=== PATIENT | male | born 1970 | race Caucasian/White ===

== ENCOUNTER 2017-02-18 09:23 | Observation (INO) ==
--- NOTE | 2017-02-18 12:04 | General Surg History&Physical ---
<Milena Morales - Last Filed: 02/18/17 12:30> Date of Encounter: 02/18/17 Time of Encounter: 11:30 Assessment and Plan (1) Pancreatitis Current Visit: Yes Status: Chronic The assessment and plan as outlined above was discussed with the patient and/or family members who expressed understanding and agreement. All questions were answered. NPO IV fluids- 200ml/hour CT abdomen/pelvis with PO/IV contrast Labs- WILMER, IGG4, Ionized calcium, CBC, BMP, Hepatic panel (lipid panel complete 02/04/17) Supportive care/pain control Continue idiopathic work-up for ongoing pancreatitis Qualifiers: Chronicity: chronic Pancreatitis type: idiopathic Qualified Code(s): K86.1 - Other chronic pancreatitis (2) Diarrhea Current Visit: Yes Status: Chronic The assessment and plan as outlined above was discussed with the patient and/or family members who expressed understanding and agreement. All questions were answered. Stool studies complete 02/17/17 reviewed and negative for bacterial pathogens, c- diff Continue IV fluids Qualifiers: Diarrhea type: unspecified type Qualified Code(s): R19.7 - Diarrhea, unspecified (3) Tobacco abuse Current Visit: Yes Status: Chronic The assessment and plan as outlined above was discussed with the patient and/or family members who expressed understanding and agreement. All questions were answered. Nicotine patch Smoking cessation education (4) COPD (chronic obstructive pulmonary disease) Current Visit: Yes Status: Chronic The assessment and plan as outlined above was discussed with the patient and/or family members who expressed understanding and agreement. All questions were answered. IS every 1 hour while awake Duonebs prn for SOB/wheezing Qualifiers: COPD type: emphysema Emphysema type: unspecified Qualified Code(s): J43.9 - Emphysema, unspecified (5) Marijuana abuse Current Visit: Yes Status: Chronic The assessment and plan as outlined above was discussed with the patient and/or family members who expressed understanding and agreement. All questions were answered. (6) GERD (gastroesophageal reflux disease) Current Visit: Yes Status: Chronic The assessment and plan as outlined above was discussed with the patient and/or family members who expressed understanding and agreement. All questions were answered. PPI therapy daily Qualifiers: Esophagitis presence: esophagitis presence not specified Qualified Code(s) : K21.9 - Gastro-esophageal reflux disease without esophagitis (7) DVT prophylaxis Current Visit: Yes Status: Acute The assessment and plan as outlined above was discussed with the patient and/or family members who expressed understanding and agreement. All questions were answered. Heparin 5,000 units SQ twice daily for DVT prophylaxis Ambulate hallways History of Present Illness Chief complaint: Epigastric abdominal pain with associated nausea HPI: Mr. Hanks is a 46 year old male who was seen and evaluated as an outpatient with Dr. Bernstein. He has complaints of diffuse abdominal pain which has been constant for the past 6 weeks. He describes the pain as a constant dull pressure which is aggrevated with trying to eat or drink. All types of foods aggrevate his symptoms. He admits to nausea and states that he has vomiting 1 time and that was yesterday. Denies any hematemesis of coffee ground emesis. He states that he does have an appetite but he is unable to eat because eating causes his abdominal pain. He admits to a 30 lb. weight loss over the past 6 weeks. He admits to diarrhea for the past 6 weeks. He states that he is having multiple loose stools per day (unable to quantify how many times). Denies any melena or hematochezia. Admits to occasional shortness of breath. Denies any chest pains. Denies any difficulty with urination, urine is dark yellow. He did have a lipase complete which was elevated in the 400's. He was asked to come in for direct admission. He states that he has had his gallbaldder removed. He drinks very rarely (1-2 beers a few times a year). He does use marijuana routinely but denies any other recreational drug use. His triglyceride panel complete 10 days ago was within normal limits. His routine medications include oxycodone which was initiated a few weeks ago, flonase and nexium. Past Med Surg Social Fam HX - Past Medical History Source: patient, old records reviewed Medical history: COPD, GERD, kidney stones, migraine, other Psychiatric history: depression - Past Surgical History Surgical History: appendectomy, cholecystectomy, other (left wrist, right thumb) - Social History Smoking Status: Current every day smoker Smokeless Tobacco Status: No Alcohol use: rarely Drug use: marijuana Current living situation: Home - Independent Activity Level: Independent ambulation Recent Out of Country Travel Within the Last 8 Weeks: No Exposure or Possible Exposure to Illness During Travel: No - Family History Mother Living Status: Cause of : emphysema/COPD Hx Family Respiratory Disorders: Yes (asthma) Father Living Status: Hx Family Endocrine Disorder: Yes (Diabetes Mellitus) Medications and Allergies Esomeprazole Magnesium [Nexium] 40 mg PO DAILY 02/17/17 [History] OxyCODONE/APAP 10/325 [Percocet 10/325 MG] 1 each PO Q4H PRN 02/17/17 [History] Fluticasone Propionate Nasal [Flonase] 2 spray NS DAILY 02/18/17 [History] Allergies codeine Allergy (Verified 02/18/17 11:41) Swelling of Lip/Tongue/Throat ALSO STATES HIVES meperidine [From Demerol] Allergy (Verified 02/18/17 11:41) Swelling of Lip/Tongue/Throat ALSO STATES HIVES morphine Allergy (Verified 02/18/17 11:41) Swelling of Lip/Tongue/Throat ALSO STATES HIVES Penicillins [PCN] Allergy (Verified 02/18/17 11:41) Swelling of Lip/Tongue/Throat ALSO STATES HIVES ketorolac [From Toradol] Adverse Reaction (Verified 02/18/17 11:41) Swelling of Lip/Tongue/Throat ALSO STATES HIVES Review of Systems All systems PM: reviewed and no additional remarkable complaints except as stated (in the HPI) All systems PM: A 10-system review of systems was performed and is negative for pertinent findings except as documented above in the HPI. General Surgery Exam - General physical appearance well developed, well nourished, no distress, moderate pain - Eyes normal ocular movement - ENT normal mucosa, atraumatic, normocephalic - Neck trachea midline - Respiratory normal respiratory effort, clear to auscultation - Cardiovascular Cardiovascular exam: Present: RRR - Abdomen Abdomen general surgery: Present: bowel sounds present, soft, tender Abdominal Tenderness: Present: diffusely - Integumentary Integumentary general surgery: Present: warm and dry - Neurologic Present: CN 2-12 grossly intact - Musculoskeletal Present: normal gait, normal posture - Psychiatric Psychiatric general surgery: Present: appropriate, oriented to person, oriented to place, oriented to time, speech is normal, memory intact Results - Labs All other labs normal. - Attending Attestation I examined this patient and my medical decision-making was reviewed with the INTERIOR SPECIALIST/PA/Advanced Practice Nurse/Resident Physician. I agree with the documented findings, disposition and treatment plan as described except to the extent set forth below. <Liv Bernstein - Last Filed: 02/18/17 13:27> Date of Encounter: 02/18/17 Assessment and Plan (1) DVT prophylaxis Current Visit: Yes Status: Acute The assessment and plan as outlined above was discussed with the patient and/or family members who expressed understanding and agreement. All questions were answered. (2) COPD (chronic obstructive pulmonary disease) Current Visit: Yes Status: Chronic The assessment and plan as outlined above was discussed with the patient and/or family members who expressed understanding and agreement. All questions were answered. Qualifiers: COPD type: emphysema Emphysema type: unspecified Qualified Code(s): J43.9 - Emphysema, unspecified (3) Diarrhea Current Visit: Yes Status: Chronic The assessment and plan as outlined above was discussed with the patient and/or family members who expressed understanding and agreement. All questions were answered. Qualifiers: Diarrhea type: unspecified type Qualified Code(s): R19.7 - Diarrhea, unspecified (4) GERD (gastroesophageal reflux disease) Current Visit: Yes Status: Chronic The assessment and plan as outlined above was discussed with the patient and/or family members who expressed understanding and agreement. All questions were answered. Qualifiers: Esophagitis presence: esophagitis presence not specified Qualified Code(s) : K21.9 - Gastro-esophageal reflux disease without esophagitis (5) Pancreatitis Current Visit: Yes Status: Chronic The assessment and plan as outlined above was discussed with the patient and/or family members who expressed understanding and agreement. All questions were answered. patient with recent pancreatitis and abdominal pain for the last month He has previously had a cholecystectomy and previous CT not concerning for primary or secondary CBD stone, lfts wnl He doesnt really take any home medication and rarely drinks EtOH. Concern for idiopathic or autoimmune pancreatitis. Discussed with GI and they recommended labs for work up, they can see him as outpatient. Qualifiers: Chronicity: chronic Pancreatitis type: idiopathic Qualified Code(s): K86.1 - Other chronic pancreatitis History of Present Illness HPI: Mr. Hanks is a 46 year old male Review of Systems All systems PM: A 10-system review of systems was performed and is negative for pertinent findings except as documented above in the HPI. General Surgery Exam Initial Vital Signs Temp Pulse Resp BP Pulse Ox 97.8 F 74 16 121/80 94 06/23/17 11:46 02/18/17 11:46 02/18/17 11:46 02/18/17 11:46 02/18/17 11:46 - General physical appearance well nourished, no distress, moderate pain - Eyes PERRL, normal ocular movement - ENT normal mucosa, atraumatic, normocephalic - Neck trachea midline - Abdomen Abdomen general surgery: Present: bowel sounds present, soft, tender Abdominal Tenderness: Present: diffusely (mildly) - Integumentary Integumentary general surgery: Present: warm and dry, no abnormal pigmentation. Absent: diaphoresis - Neurologic Present: CN 2-12 grossly intact - Musculoskeletal Present: normal gait, normal posture - Psychiatric Psychiatric general surgery: Present: A&Ox3, oriented to time, speech is normal Results - Labs 02/18/17 13:07 All other labs normal. Short CBC 02/18/17 Range/Units 13:07 WBC 9.9 (4.3-11.1) K/mcL Hgb 16.2 (12.9-16.9) g/dL Hct 47.6 (37.5-50.1) % Plt Count 207 (140-400) K/mcL Neutrophils # 5.0 (1.6-8.9) K/mcL - Attending Attestation I examined this patient and my medical decision-making was reviewed with the INTERIOR SPECIALIST/PA/Advanced Practice Nurse/Resident Physician. I agree with the documented findings, disposition and treatment plan as described except to the extent set forth below.
[2017-02-18] MEDS ORDERED: Naloxone 0.4 MG/ML INJ IVP PRN (12:14)
[2017-02-18] MEDS ORDERED: Acetaminophen 325 MG TABLET PO PRN (12:26)
[2017-02-18] MEDS ORDERED: Ipratropium/Albuterol Neb 3 ML IH PRN (12:57)
[2017-02-18 13:22] LABS: Basophils # 0.1 K/mcL (0.0-0.2); Basophils % 0.6 %; Eosinophils # 0.1 K/mcL (0.0-0.6); Eosinophils % 1.4 %; Hematocrit 47.6 % (37.5-50.1); Hemoglobin 16.2 g/dL (12.9-16.9); Immature Granulocytes % 0.2 % (0-4); Lymphocytes # 3.7 K/mcL (0.6-4.6); Mean Corpuscular Hemoglobin 30.6 pg (28.0-33.3); Mean Corpuscular Volume 89.8 fL (83.0-100.0); Mean Platelet Volume 10.3 fL (9.4-12.4); Monocytes # 1.1 K/mcL (0.0-1.3); Platelet Count 207 K/mcL (140-400); Segmented Neutrophils % 49.8 %
[2017-02-18 14:17] LABS: Alanine Aminotransferase 24 Units/L (0-55); Albumin 3.7 g/dL (3.5-5.0); Albumin/Globulin Ratio 1.2 (1.1-2.2); Alkaline Phosphatase 108 Units/L (38-126); Amylase 26 Units/L (25-125); Aspartate Amino Transferase 22 Units/L (5-34); BUN/Creatinine Ratio 12 (6-26); Bilirubin,Direct 0.3 mg/dL (0.0-0.5); Bilirubin,Indirect 0.7 mg/dL (0.0-1.2); Blood Urea Nitrogen 12 mg/dL (8-26); Carbon Dioxide 27 mEq/L (19-29); Chloride 105 mEq/L (98-109); Globulin 3.2 g/dL (2.4-3.5); Glucose 65 mg/dL (70-99); Lipase 38 Units/L (8-78); Osmolality,Calculated 282 (280-300); Sodium 137 mEq/L (136-145); Total Protein 6.9 g/dL (6.0-8.3); eGFR For African Americans > 60 (> 60); eGFR For Non-African Americans > 60 (> 60)
[2017-02-18] MEDS: *HR* HYDROmorphone (PF) 1 MG/ML SYRINGE IVP PRN ×5 (14:51→23:34)
[2017-02-18] MEDS: Ondansetron 4 MG/2 ML VIAL IVP PRN ×2 (14:51→19:40)
[2017-02-18] MEDS: Nicotine 14 MG PATCH.TD24 TD SCH (14:59)
[2017-02-18] MEDS: *HR* Heparin 5,000 UNIT/ML VIAL SQ SCH (17:23)
[2017-02-18] MEDS: *HR* Promethazine 25 MG/ML VIAL IVP PRN (22:22)
[2017-02-19] MEDS: *HR* HYDROmorphone (PF) 1 MG/ML SYRINGE IVP PRN ×10 (02:35→23:33)
[2017-02-19] MEDS: *HR* Heparin 5,000 UNIT/ML VIAL SQ SCH ×2 (06:57→18:29)
[2017-02-19] MEDS: *HR* Promethazine 25 MG/ML VIAL IVP PRN ×3 (07:00→21:19)
[2017-02-19] MEDS: Nicotine 14 MG PATCH.TD24 TD SCH (09:24)
[2017-02-19] MEDS: Ondansetron 4 MG/2 ML VIAL IVP PRN ×2 (09:31→19:25)
[2017-02-19] MEDS ORDERED: Polyethylene Glycol 3350 255 GM POWDER PO ONE (10:29)
--- NOTE | 2017-02-19 10:34 | General Surgery Progress Note ---
Date of Encounter: 02/19/17 Time of Encounter: 10:30 - Assessment and Plan (1) DVT prophylaxis Current Visit: Yes Status: Acute (2) COPD (chronic obstructive pulmonary disease) Current Visit: Yes Status: Chronic IS, pulmonary toilet, prn inhaler Qualifiers: COPD type: emphysema Emphysema type: unspecified Qualified Code(s): J43.9 - Emphysema, unspecified (3) Diarrhea Current Visit: Yes Status: Chronic will plan colonoscopy with iv medication, risks and benefits discussed and he wishes to proceed Qualifiers: Diarrhea type: unspecified type Qualified Code(s): R19.7 - Diarrhea, unspecified (4) GERD (gastroesophageal reflux disease) Current Visit: Yes Status: Chronic protonix iv bid Qualifiers: Esophagitis presence: esophagitis presence not specified Qualified Code(s) : K21.9 - Gastro-esophageal reflux disease without esophagitis (5) Pancreatitis Current Visit: Yes Status: Chronic labs are normal yesterday Qualifiers: Chronicity: chronic Pancreatitis type: idiopathic Qualified Code(s): K86.1 - Other chronic pancreatitis (6) Abdominal pain Current Visit: Yes Status: Acute patient with continued severe abdominal pain that is unrelenting and increases with eating will plan EGD/colonoscopy with iv medication, risks and benefits discussed and he wishes to proceed start clears, npo at midnight bowel prep today decrease ivf hydration check lipase Qualifiers: Abdominal location: generalized Qualified Code(s): R10.84 - Generalized abdominal pain Subjective Patient reports: no new complaints, still having pain, voiding w/o difficulty, flatus, diarrhea Narrative: still having diffused severe abdominal pain and diarrhea Objective Vital Signs - Last 8 Hours Temp Pulse Resp BP Pulse Ox 02/19/17 06:39 97.5 F L 66 20 122/75 95 02/19/17 04:53 97.6 F 67 16 115/78 95 Intake and Output 02/18/17 02/19/17 02/19/17 23:59 07:59 15:59 Intake Total 1000 / 1000 1999 Output Total 1025 / 1025 1500 / 1500 550 / 550 Balance -25 / -25 500 / 500 -550 / -550 Intake: IV Fluids 1000 / 1000 1999 / 1999 0.45% Sodium Chloride 1000 / 1000 1999 1000 Ml 1000 Ml 1,000 ML @ 200 mls/hr IVC .Q5H ANDREW Rx#:[id number] Oral 0 / 0 0 / 0 Output: Urine 1025 / 1025 1500 / 1500 550 / 550 Other: Meal NPO Weight 101.968 kg Blood Glucose* 93 82 Patient Weight 02/19/17 23:59 Weight 101.968 kg - General physical appearance well developed, well nourished, moderate pain - Eyes PERRL, normal ocular movement - ENT normal mucosa, normocephalic - Neck Neck exam: trachea midline - Respiratory normal expansion, clear to auscultation - Cardiovascular Cardiovascular exam: Present: RRR - Abdomen Abdomen: Present: bowel sounds present, soft, tender Abdominal Tenderness: diffusely - Integumentary no rash, no growths - Neurologic CN 2-12 grossly intact - Musculoskeletal normal posture - Psychiatric oriented to time, memory intact - Labs 02/18/17 13:07 02/18/17 13:07 Diabetes panel 02/18/17 Range/Units 13:07 Sodium 137 (136-145) mEq/L Potassium 4.0 (3.5-4.5) mEq/L Chloride 105 (98-109) mEq/L Carbon Dioxide 27 (19-29) mEq/L BUN 12 (8-26) mg/dL Creatinine 1.01 (0.72-1.25) mg/dL Glucose 65 L (70-99) mg/dL Calcium 9.0 (8.6-10.8) mg/dL AST 22 (5-34) Units/L ALT 24 (0-55) Units/L Alkaline Phosphatase 108 (38-126) Units/L Albumin 3.7 (3.5-5.0) g/dL Calcium panel 02/18/17 Range/Units 13:07 Calcium 9.0 (8.6-10.8) mg/dL Albumin 3.7 (3.5-5.0) g/dL Pituitary panel 02/18/17 Range/Units 13:07 Sodium 137 (136-145) mEq/L Potassium 4.0 (3.5-4.5) mEq/L Chloride 105 (98-109) mEq/L Carbon Dioxide 27 (19-29) mEq/L BUN 12 (8-26) mg/dL Creatinine 1.01 (0.72-1.25) mg/dL Glucose 65 L (70-99) mg/dL Calcium 9.0 (8.6-10.8) mg/dL Adrenal panel 02/18/17 Range/Units 13:07 Sodium 137 (136-145) mEq/L Potassium 4.0 (3.5-4.5) mEq/L Chloride 105 (98-109) mEq/L Carbon Dioxide 27 (19-29) mEq/L BUN 12 (8-26) mg/dL Creatinine 1.01 (0.72-1.25) mg/dL Glucose 65 L (70-99) mg/dL Calcium 9.0 (8.6-10.8) mg/dL Total Bilirubin 1.0 (0.2-1.2) mg/dL AST 22 (5-34) Units/L ALT 24 (0-55) Units/L Alkaline Phosphatase 108 (38-126) Units/L Albumin 3.7 (3.5-5.0) g/dL Consult Discharge Plan - Plan Referrals: Vanessa Ramirez, [employer]LECT[employer] DES[employer] ENGINEER [Primary Care Provider] -
[2017-02-19] MEDS: Pantoprazole 40 MG VIAL IVP SCH (18:29)
[2017-02-20] MEDS: *HR* HYDROmorphone (PF) 1 MG/ML SYRINGE IVP PRN ×6 (01:24→23:53)
[2017-02-20] MEDS: Ondansetron 4 MG/2 ML VIAL IVP PRN ×3 (01:25→14:43)
[2017-02-20] MEDS: *HR* Promethazine 25 MG/ML VIAL IVP PRN ×2 (04:55→12:39)
[2017-02-20] MEDS: *HR* Heparin 5,000 UNIT/ML VIAL SQ SCH ×3 (05:02→17:07)
[2017-02-20] MEDS: Pantoprazole 40 MG VIAL IVP SCH ×2 (05:05→17:03)
[2017-02-20] MEDS: Nicotine 14 MG PATCH.TD24 TD SCH (07:44)
[2017-02-20 10:55] LABS: BUN/Creatinine Ratio 9 (6-26); Blood Urea Nitrogen 10 mg/dL (8-26); Calcium 8.9 mg/dL (8.6-10.8); Carbon Dioxide 27 mEq/L (19-29); Chloride 103 mEq/L (98-109); Glucose 87 mg/dL (70-99); Osmolality,Calculated 286 (280-300); Potassium 4.2 mEq/L (3.5-4.5); Sodium 139 mEq/L (136-145); eGFR For African Americans > 60 (> 60); eGFR For Non-African Americans > 60 (> 60)
[2017-02-20] MEDS ORDERED: *HR* FentaNYL (PF) 100 MCG/2 ML VIAL ONE (17:04)
[2017-02-20] MEDS ORDERED: *HR* Midazolam HCl 5 MG/5 ML VIAL IVP ONE (17:04)
[2017-02-20] MEDS ORDERED: Tetracaine/Benzocaine/Butamben 200MG/SPRAY (100SPY/BOT) MM ONE (17:09)
[2017-02-20] MEDS ORDERED: *HR* Promethazine 25 MG/ML VIAL IVP ONE (17:09)
[2017-02-20] MEDS ORDERED: Simethicone 40 MG/0.6 ML MLS IR ONE (17:09)
[2017-02-20] MEDS ORDERED: 0.9 % Sodium Chloride 1,000 ML IVC SCH (17:15)
[2017-02-20] MEDS: *HR* Midazolam HCl 5 MG/5 ML VIAL IVP PRN ×5 (17:27→17:48)
[2017-02-20] MEDS: *HR* FentaNYL (PF) 100 MCG/2 ML VIAL IVP PRN ×3 (17:27→17:32)
[2017-02-20] MEDS ORDERED: Ipratropium/Albuterol Neb 3 ML IH PRN (18:28)
[2017-02-20] MEDS ORDERED: Naloxone 0.4 MG/ML INJ IVP PRN (18:28)
[2017-02-20] MEDS ORDERED: Acetaminophen 325 MG TABLET PO PRN (18:28)
[2017-02-21] MEDS: *HR* Promethazine 25 MG/ML VIAL IVP PRN ×4 (00:30→20:24)
[2017-02-21] MEDS: *HR* HYDROmorphone (PF) 1 MG/ML SYRINGE IVP PRN ×9 (02:21→23:26)
[2017-02-21] MEDS: *HR* Heparin 5,000 UNIT/ML VIAL SQ SCH ×2 (05:33→18:44)
[2017-02-21] MEDS: Pantoprazole 40 MG VIAL IVP SCH ×2 (05:33→18:44)
[2017-02-21 07:38] LABS: Immunoglobulin G Subclass 1 677 mg/dL (240-1118); Immunoglobulin G Subclass 2 278 mg/dL (124-549); Immunoglobulin G Subclass 3 140 mg/dL (21-134); Immunoglobulin G Subclass 4 71 mg/dL (1-123)
[2017-02-21 08:01] LABS: ANA IgG by ELISA NONE DETECTED (None Detected)
[2017-02-21] MEDS: Nicotine 14 MG PATCH.TD24 TD SCH ×2 (08:01→21:18)
[2017-02-21] MEDS: Ondansetron 4 MG/2 ML VIAL IVP PRN ×2 (11:49→18:44)
--- NOTE | 2017-02-21 15:07 | Gastroenterology Consult Note ---
Date of Encounter: 02/21/17 Time of Encounter: 12:20 - Assessment and plan (1) Pancreatitis Current Visit: Yes Status: Chronic Assessment and plan: Lipase has fluctuated, peaked at 421 on 02/17 then 38 on 02/18, today lipase 44. Ionized calcium 1.14, IgG4 71, and WILMER negative. Check triglycerides. Qualifiers: Chronicity: chronic Pancreatitis type: idiopathic Qualified Code(s): K86.1 - Other chronic pancreatitis (2) GERD (gastroesophageal reflux disease) Current Visit: Yes Status: Chronic Assessment and plan: Continue PPI. Qualifiers: Esophagitis presence: esophagitis presence not specified Qualified Code(s) : K21.9 - Gastro-esophageal reflux disease without esophagitis (3) Abdominal pain Current Visit: Yes Status: Acute Assessment and plan: EGD with small hiatal hernia, erythematous mucosa in stomach, colonoscopy with 2mm polyp in cecum, random biopsies pending. Check MRI abdomen to assess pancreas. Continue PPI. Qualifiers: Abdominal location: generalized Qualified Code(s): R10.84 - Generalized abdominal pain (4) COPD (chronic obstructive pulmonary disease) Current Visit: Yes Status: Chronic Qualifiers: COPD type: emphysema Emphysema type: unspecified Qualified Code(s): J43.9 - Emphysema, unspecified - Time Spent With Patient Total time spent is greater than 50% in coordination of care (as documented) at patient's floor/unit and/or counseling patient: GI History of Present Illness - Data of Consult Patient: new to practice Consult date: 02/21/17 Requesting Physician: Liv Bernstein MD - Consult Narrative Reason for consult: Recurrent pancreatitis, SOD?, Abdominal pain, diarrhea History of present illness: Mr. Hanks is a 46 year old male with PMHx of COPD, GERD, kidney stones, s/p cholecystectomy presented with c/o diffuse abdominal pain for the past 6 weeks which is worsened with eating. He admits to nausea and states that he has vomiting one time. He denied hematemesis or coffee ground emesis. He reports diarrhea for the past 6 weeks, having multiple BMs daily. He denies melena or hematochezia. CT A/P and HIDA scan were negative. Lipase has fluctuated, peaked at 421 on 02/17 and 38 on 02/18. Pt underwent EGD and colonoscopy yesterday. Procedures: Colonoscopy 02/20/2017 Dr. Bernstein: 2mm polyp in cecum, random biopsies pending. EGD 02/20/2017: small hiatal hernia, erythematous mucosa in stomach. NSAIDs: None Anticoagulation: None Past Med Surg Social Fam HX - Past Medical History Medical history: COPD, GERD, kidney stones, migraine, other Psychiatric history: depression - Past Surgical History Surgical History: appendectomy, cholecystectomy, other (left wrist, right thumb) - Social History Smoking Status: Current every day smoker Smokeless Tobacco Status: No Alcohol use: rarely Drug use: marijuana - Family History Mother Living Status: Cause of : emphysema/COPD Hx Family Respiratory Disorders: Yes (asthma) Father Living Status: Hx Family Endocrine Disorder: Yes (Diabetes Mellitus) - Gastrointestinal Gastrointestinal: Present: as per HPI - Constitutional Constitutional: as per HPI - EENT Eyes: as per HPI Ears: Present: as per HPI Nose, mouth and throat: Present: as per HPI - Cardiovascular Cardiovascular ROS: Present: as per HPI - Respiratory Respiratory IM: Present: as per HPI - Genitourinary Genitourinary: Absent: change in color, Urinary frequency - Neurological ROS Neurological GI: Present: as per HPI - Hematologic/Lymphatic Hematologic/Lymphatic pediatric: Present: as per HPI - Musculoskeletal Musculoskeletal ROS GI: Present: as per HPI - Integumentary Integumentary GI: Present: as per HPI - Psychiatric ROS Psychiatric GI: Present: as per HPI - Endocrine Endocrine IM: Present: as per HPI - Constitutional Vitals: Temp Pulse Resp BP Pulse Ox 97.9 F 61 17 133/71 96 02/21/17 11:18 02/21/17 11:18 02/21/17 11:18 02/21/17 11:18 02/21/17 11:18 General appearance: Present: cooperative, A&O X 3, no acute distress, answers questions appropriately - Head Head exam: Present: atraumatic, normocephalic - Eye Eye exam: Present: normal appearance, sclera anicteric - ENT ENT exam: Present: mucous membranes dry - Neck Neck exam general surgery: Present: normal inspection, trachea midline - Respiratory Respiratory exam: Present: CTAB. Absent: rales, rhonchi - Cardiovascular Cardiovascular exam: Present: RRR, +S1, +S2 - GI/Abdominal GI/Abdominal exam: Present: normal bowel sounds, soft, tenderness (generalized) , no peritoneal signs. Absent: distended, firm, guarding - Rectal Rectal exam: Present: deferred - Extremities Exam Extremities exam: Present: warm - Neurological Exam Neurological exam: Present: no focal deficits - Psychiatric Psychiatric exam: Present: normal affect, normal mood - Skin Skin exam: Present: dry, intact, normal color, warm Results - Labs CBC & Chem 7: 02/18/17 13:07 02/20/17 10:36 Labs: Last Result Calcium 8.9 mg/dL (8.6-10.8) 02/20/17 10:36 Entire Visit Hgb 16.2 g/dL (12.9-16.9) 02/18/17 13:07 Hct 47.6 % (37.5-50.1) 02/18/17 13:07 Total Bilirubin 1.0 mg/dL (0.2-1.2) 02/18/17 13:07 AST 22 Units/L (5-34) 02/18/17 13:07 ALT 24 Units/L (0-55) 02/18/17 13:07 Amylase 26 Units/L (25-125) 02/18/17 13:07 Lipase 44 Units/L (8-78) 02/20/17 10:36 Consult Discharge Plan - Plan Instructions: Chronic Obstructive Pulmonary Disease (DC) Referrals: Vanessa Ramirez CNP [Primary Care Provider] -
--- NOTE | 2017-02-21 15:11 | General Surgery Progress Note ---
<Milena Morales Analilia - Last Filed: 02/21/17 15:14> Date of Encounter: 02/21/17 Time of Encounter: 14:30 - Assessment and Plan (1) Pancreatitis Current Visit: Yes Status: Chronic GI consult initiated- MRCP today IV fluids NPO for MRI Supportive care/pain control Continue idiopathic work-up for ongoing pancreatitis s/p EGD/Colonoscopy- pathology pending (2) Diarrhea Current Visit: Yes Status: Chronic IV fluids Supportive care (3) Tobacco abuse Current Visit: Yes Status: Chronic smoking cessation education nicotine patch (4) COPD (chronic obstructive pulmonary disease) Current Visit: Yes Status: Chronic Duonebs prn IS eveyr 1 hour while awake (5) Marijuana abuse Current Visit: Yes Status: Chronic (6) GERD (gastroesophageal reflux disease) Current Visit: Yes Status: Chronic PPI therapy daily (7) DVT prophylaxis Current Visit: Yes Status: Acute Heparin 5,000 units SQ twice daily for DVT prophylaxis Subjective Patient reports: no new complaints, still having pain, voiding w/o difficulty, afebrile Objective Vital Signs - Last 8 Hours Temp Pulse Resp BP Pulse Ox 02/21/17 11:18 97.9 F 61 17 133/71 96 02/21/17 07:35 98.2 F 72 16 107/61 96 Intake and Output 02/20/17 02/21/17 02/21/17 23:59 07:59 15:59 Intake Total 240 / 240 0 / 0 Output Total 1000 / 1000 550 / 550 Balance -760 / -760 -550 / -550 Intake: Oral 240 / 240 0 / 0 Output: Urine 1000 / 1000 550 / 550 Other: Meal NPO Percent of Meal Consumed 0% Weight 99.904 kg Blood Glucose* 76 103 91 Patient Weight 02/21/17 23:59 Weight 99.904 kg - General physical appearance well developed, well nourished, no distress - Eyes normal ocular movement - ENT normal mucosa, atraumatic, normocephalic - Neck Neck exam: trachea midline - Respiratory normal respiratory effort, clear to auscultation - Cardiovascular Cardiovascular exam: Present: RRR - Abdomen Abdomen: Present: bowel sounds present, soft, tender Abdominal Tenderness: diffusely - Neurologic CN 2-12 grossly intact - Psychiatric oriented to time, oriented to person, oriented to place, speech is normal, memory intact - Labs 02/18/17 13:07 02/20/17 10:36 Consult Discharge Plan - Plan Instructions: Chronic Obstructive Pulmonary Disease (DC) Referrals: Vanessa Ramirez CNP [Primary Care Provider] - - Attending Attestation I examined this patient and my medical decision-making was reviewed with the RACE STEWARD/PA/Advanced Practice Nurse/Resident Physician. I agree with the documented findings, disposition and treatment plan as described except to the extent set forth below. <DayLiv Mayra - Last Filed: 02/22/17 09:28> Date of Encounter: 02/21/17 - Assessment and Plan (1) DVT prophylaxis Current Visit: Yes Status: Acute (2) COPD (chronic obstructive pulmonary disease) Current Visit: Yes Status: Chronic Qualifiers: COPD type: emphysema Emphysema type: unspecified Qualified Code(s): J43.9 - Emphysema, unspecified (3) Diarrhea Current Visit: Yes Status: Chronic awaiting random colon biopsies from colonoscopy Qualifiers: Diarrhea type: unspecified type Qualified Code(s): R19.7 - Diarrhea, unspecified (4) GERD (gastroesophageal reflux disease) Current Visit: Yes Status: Chronic Qualifiers: Esophagitis presence: esophagitis presence not specified Qualified Code(s) : K21.9 - Gastro-esophageal reflux disease without esophagitis (5) Pancreatitis Current Visit: Yes Status: Chronic await GI recommendations, MRCP done and is negative for pathology Qualifiers: Chronicity: chronic Pancreatitis type: idiopathic Qualified Code(s): K86.1 - Other chronic pancreatitis (6) Abdominal pain Current Visit: Yes Status: Acute prn pain control Qualifiers: Abdominal location: generalized Qualified Code(s): R10.84 - Generalized abdominal pain Subjective Patient reports: no new complaints, still having pain, voiding w/o difficulty Objective Vital Signs - Last 8 Hours Temp Pulse Resp BP Pulse Ox 02/22/17 07:06 98.6 F 86 16 106/70 99 02/22/17 04:26 98.1 F 73 18 104/63 93 Intake and Output 02/21/17 02/22/17 02/22/17 23:59 07:59 15:59 Intake Total 116 / 116 622 / 622 262 / 262 Output Total 225 / 225 250 / 250 Balance -109 / -109 372 / 372 262 / 262 Intake: IV Fluids 116 / 116 622 / 622 262 / 262 0.9 % Sodium Chloride 1, 116 / 116 622 / 622 262 / 262 000 ML @ 75 mls/hr IVC . [id number] ANDREW Rx#: [id number] Output: Urine 225 / 225 250 / 250 Other: Meal NPO for supper # Voids 0 Weight 99.972 kg Blood Glucose* 98 Patient Weight 02/22/17 23:59 Weight 99.972 kg - General physical appearance well developed, well nourished, no distress - Eyes PERRL, normal ocular movement - ENT normal mucosa, atraumatic, normocephalic - Neck Neck exam: trachea midline - Respiratory normal respiratory effort, clear to auscultation - Cardiovascular Cardiovascular exam: Present: RRR - Abdomen Abdomen: Present: bowel sounds present, soft, tender. Absent: guarding, rebound , rigid, peritoneal Abdominal Tenderness: diffusely - Integumentary no rash, no growths - Neurologic CN 2-12 grossly intact - Musculoskeletal normal posture - Psychiatric oriented to time, oriented to person, oriented to place, speech is normal - Labs 02/18/17 13:07 02/20/17 10:36 Diabetes panel 02/21/17 Range/Units 19:11 Triglycerides 95 (< 150) mg/dL - Attending Attestation I examined this patient and my medical decision-making was reviewed with the RACE STEWARD/PA/Advanced Practice Nurse/Resident Physician. I agree with the documented findings, disposition and treatment plan as described except to the extent set forth below.
[2017-02-21] MEDS: 0.9 % Sodium Chloride 1,000 ML IVC SCH (16:36)
[2017-02-22] MEDS: Ondansetron 4 MG/2 ML VIAL IVP PRN ×2 (01:53→11:14)
[2017-02-22] MEDS: *HR* HYDROmorphone (PF) 1 MG/ML SYRINGE IVP PRN ×5 (01:53→13:38)
[2017-02-22] MEDS: *HR* Heparin 5,000 UNIT/ML VIAL SQ SCH (05:03)
[2017-02-22] MEDS: Pantoprazole 40 MG VIAL IVP SCH (05:03)
[2017-02-22] MEDS: *HR* Promethazine 25 MG/ML VIAL IVP PRN ×2 (05:10→08:27)
[2017-02-22] MEDS: 0.9 % Sodium Chloride 1,000 ML IVC SCH (08:26)
[2017-02-22] MEDS: Nicotine 14 MG PATCH.TD24 TD SCH (08:27)
[2017-02-22 11:47] VITALS: BP 104/68
--- NOTE | 2017-02-22 13:18 | Discharge Summary ---
Date of Encounter: 02/22/17 Time of Encounter: 13:15 - Discharge Diagnosis (1) Pancreatitis Priority: Primary Status: Resolved Qualifiers: Chronicity: chronic Pancreatitis type: idiopathic Qualified Code(s): K86.1 - Other chronic pancreatitis (2) Diarrhea Priority: Secondary Status: Chronic Qualifiers: Diarrhea type: unspecified type Qualified Code(s): R19.7 - Diarrhea, unspecified (3) Tobacco abuse Priority: Secondary Status: Chronic (4) COPD (chronic obstructive pulmonary disease) Priority: Secondary Status: Chronic Qualifiers: COPD type: emphysema Emphysema type: unspecified Qualified Code(s): J43.9 - Emphysema, unspecified (5) Marijuana abuse Priority: Secondary Status: Chronic (6) GERD (gastroesophageal reflux disease) Priority: Secondary Status: Chronic Qualifiers: Esophagitis presence: esophagitis presence not specified Qualified Code(s) : K21.9 - Gastro-esophageal reflux disease without esophagitis - Discharge Medications Prescriptions: Budesonide [Entocort EC] 9 mg PO DAILY #126 capdr...er Dicyclomine [Bentyl] 20 mg PO Q6H PRN #120 capsule PRN Reason: abdominal pain/cramping Tramadol HCl [Ultram] 50 mg PO QID PRN #30 tab PRN Reason: Pain Home Medications: Esomeprazole Magnesium [Nexium] 40 mg PO DAILY 02/17/17 [History] Fluticasone Propionate Nasal [Flonase] 2 spray NS DAILY 02/18/17 [History] Budesonide [Entocort EC] 9 mg PO DAILY #126 capdr...er 02/22/17 [Rx] Dicyclomine [Bentyl] 20 mg PO Q6H PRN #120 capsule 02/22/17 [Rx] Tramadol HCl [Ultram] 50 mg PO QID PRN #30 tab 02/22/17 [Rx] Allergies/Adverse Reactions: Allergies codeine Allergy (Verified 02/18/17 11:41) Swelling of Lip/Tongue/Throat ALSO STATES HIVES meperidine [From Demerol] Allergy (Verified 02/18/17 11:41) Swelling of Lip/Tongue/Throat ALSO STATES HIVES morphine Allergy (Verified 02/18/17 11:41) Swelling of Lip/Tongue/Throat ALSO STATES HIVES Penicillins [PCN] Allergy (Verified 02/18/17 11:41) Swelling of Lip/Tongue/Throat ALSO STATES HIVES ketorolac [From Toradol] Adverse Reaction (Verified 02/18/17 11:41) Swelling of Lip/Tongue/Throat ALSO STATES HIVES General Surgery Exam Initial Vital Signs Temp Pulse Resp BP Pulse Ox 97.8 F 74 16 121/80 94 02/18/17 11:46 02/18/17 11:46 02/18/17 11:46 02/18/17 11:46 02/18/17 11:46 - General physical appearance well developed, well nourished, no distress - Eyes normal ocular movement - ENT normal mucosa, atraumatic, normocephalic - Neck trachea midline - Respiratory normal respiratory effort, clear to auscultation - Cardiovascular Cardiovascular exam: Present: RRR - Abdomen Abdomen general surgery: Present: bowel sounds present, soft, tender Abdominal Tenderness: Present: diffusely - Integumentary Integumentary general surgery: Present: warm and dry - Neurologic Present: CN 2-12 grossly intact - Musculoskeletal Present: normal gait, normal posture - Psychiatric Psychiatric general surgery: Present: appropriate, oriented to person, oriented to place, oriented to time, speech is normal, memory intact Date of admission: 02/18/17 10:49 Primary care physician: Vanessa Ramirez CNP Consults: 02/20/17 18:28 Consult to Gastroenterology [CONS] Routine Consulting Provider: Gastroenterology Preeti Reason for Consult: recurrent pancreatitis (SHRUTHI?), diffuse abdominal pain, diarrhea Call Completed: No Discharging clinician: Liv Bernstein ([facility]) Anticipated date of discharge: 02/22/17 - Patient Status Disposition: Home, Self-Care Condition: Good Functional capacity at discharge: independent ambulation Overall status at discharge: patient is back to baseline - Discharge Instructions Instructions: Chronic Obstructive Pulmonary Disease (DC) Follow Up With: Vanessa Ramirez CNP [Primary Care Provider] - (2 weeks hospital follow-up) Kayla Garrett MD [Partnered Physician] - (2 weeks hospital follow-up) - Diet and Activity Activity: increase activity as tolerated Diet: advance to your usual diet - Hospital Course Hospital course: Mr. Hanks is a 46 year old male admitted with complaints of abdominal pain, diarrhea, weight loss. He also had an elevated lipase. He was admitted to the hospital for supportive care and further workup. He was given IV fluids. He did have an initial CT complete which showed no significant findings which would account for his pain syndrome. He had an EGD and colonoscopy complete with Dr. Bernstein. Biopsies from the upper GI tract were negative for H. pylori and showed mild inflammatory changes. Random colon biopsies were complete and showed no significant pathology. He did have a hyperplastic cecal polyp as well. Biopsies from the terminal ileum showed focal cryptitis. Gastroenterology was consulted for evaluation and recommendations. They recommended an MRCP for further evaluation of the biliary system and pancreas. The MRI has been complete and there are no abnormalities identified. GI is recommending treating the patient as needed with mental 4 times per day. They will follow up with him as an outpatient. They are not recommending further evaluation with ERCP at this time. The patient's vital signs are stable and he is afebrile. His lipase has returned to normal. He denies that his pain is any better at this time. We will begin discharge planning and plan for outpatient follow-up with GI in 2 weeks. - Time Spent with Patient Total time spent providing and/or coordinating discharge services: Less than 30 minutes Labs on day of discharge: Labs from last 24 hours 02/22/17 02/21/17 02/21/17 11:43 19:11 12:03 POC Glucose 95 H 91 H Triglycerides 95 02/21/17 05:23 POC Glucose 103 H Triglycerides - Impressions ITS Impressions Abdomen/Pelvis CT 02/18/17 16:45 IMPRESSION: 1. No acute process demonstrated. Specifically, no CT findings of appendicitis 2. Nonobstructing bilateral nephrolithiasis 3. Status post cholecystectomy and abdominal wall hernia repair D/ / Stephan Winter MD / Stephan Winter MD Interpreting Provider: Stephan Winter MD Bile Acid Absorption NM 02/20/17 07:37 IMPRESSION: Expected post cholecystectomy nonvisualization of the gallbladder. Liver, extrahepatic biliary system, and small bowel are visualized as expected. D/ / Montana Pathak MD / Montana Pathak MD Interpreting Provider: Montana Pathak MD Abdomen MRI 02/21/17 11:35 IMPRESSION: 1. No acute abnormalities are identified in the abdomen. Specifically, there are no findings of pancreatitis. 2. A few incidental findings as above for which no follow-up is recommended. D/ / Sandip Lxu MD / Sandip Lux MD Interpreting Provider: Sandip Lux MD - Attending Attestation I examined this patient and my medical decision-making was reviewed with the PLATE CLEANER/PA/Advanced Practice Nurse/Resident Physician. I agree with the documented findings, disposition and treatment plan as described except to the extent set forth below.
[2017-02-22] MEDS ORDERED: Ondansetron 4 MG/2 ML VIAL IVP ONE (13:51)
== END 2017-02-22 14:45 | disposition home or self-care (01) ==
LOC: 3ANU
PROVIDERS: ADMIT Surgery; ATTEND Surgery
PROC: ENDOEBX (2017-02-20 08:30)
PROC: ENDOCBX (2017-02-20 08:30)

== ENCOUNTER 2017-08-01 09:34 | Inpatient (IN) ==
[2017-08-01] MEDS ORDERED: 0.9 % Sodium Chloride 1,000 ML IVC ONE (09:53)
[2017-08-01] MEDS ORDERED: *HR* HYDROmorphone (PF) 1 MG/ML SYRINGE IVP ONE ×3 (09:53→13:11)
[2017-08-01] MEDS ORDERED: Ondansetron 4 MG/2 ML VIAL IVP ONE ×2 (09:53→17:49)
[2017-08-01 10:34] LABS: Basophils # 0.1 K/mcL (0.0-0.2); Basophils % 0.6 %; Eosinophils # 0.2 K/mcL (0.0-0.6); Eosinophils % 2.3 %; Hematocrit 42.5 % (37.5-50.1); Hemoglobin 14.5 g/dL (12.9-16.9); Immature Granulocytes % 0.7 % (0-4); Lymphocytes # 1.7 K/mcL (0.6-4.6); Lymphocytes % 18.5 %; Mean Corpuscular HGB Conc 34.1 g/dL (31.6-35.5); Mean Corpuscular Hemoglobin 31.2 pg (28.0-33.3); Mean Corpuscular Volume 91.4 fL (83.0-100.0); Mean Platelet Volume 10.6 fL (9.4-12.4); Monocytes # 1.4 K/mcL (0.0-1.3); Monocytes % 14.9 %; Neutrophils # 5.7 K/mcL (1.6-8.9); Nucleated Red Blood Cells 0.2 /100 WBC (0); Platelet Count 170 K/mcL (140-400); Red Blood Count 4.65 M/mcL (4.19-5.50); Red Cell Distribution Width 13.3 % (11.5-14.5)
[2017-08-01] MEDS ORDERED: Ipratropium/Albuterol Neb 3 ML IH ONE (10:39)
--- NOTE | 2017-08-01 10:39 | Emergency Department Note ---
Disposition Clinical Impression: Pancreatitis Disposition: Admitted As Inpatient Condition: Fair Referrals: Jude Tinoco MD [Partnered Physician] - Forms: ED Satisfaction Letter, Work/School Release Time of Disposition: 11:30 Abdominal Pain HPI - General Chief Complaint: ED Abdominal Pain Stated Complaint: Pancreatitis Time Seen by Provider: 08/01/17 09:44 Source: patient Mode of arrival: ambulatory Limitations: no limitations Nursing Notes Reviewed: Yes Vital Signs Reviewed: Yes - History of Present Illness HPI Narrative: Patient is a 47-year-old male with a past medical history pancreatitis, COPD, GERD, kidney stones, appendectomy and cholecystectomy that presents the ED with generalized abdominal pain with associated nausea, vomiting, diarrhea and subjective fever and chills 3 days. Patient states that he is having a pancreatitis flare up. He denies any recent ETOH consumption or use. States he occasionally drinks 2-3 a year and occasionally uses marijuana. Denies any other drug use. Denies any NSAID use. States identical symptoms that previously one year ago which required him to be admitted for one week. Patient denies any chest pain, shortness of breath, hematemesis or coffee ground emesis, melena or hematochezia. Pt Subjective Complaint: abdominal pain Onset (ago): day(s) Consistency: Worsening Location: diffuse Pain Severity: severe Pain Scale: 10 Quality: cramping, aching, dull Radiation: none Migration to: no migration Improves with: nothing Worsens with: nothing Context: history of similar episodes (Pancreatitis flare) Associated symptoms: Reports: denies other symptoms, nausea, vomiting, diarrhea , fever (Subjective), chills (Subjective). Denies: constipation, dysuria, hematemesis, hematochezia, melena, hematuria, anorexia, syncope Treatments prior to arrival: none - Related Data Home Medications Medication Instructions Recorded Confirmed Fluticasone Propionate Nasal 2 spray NS DAILY 02/18/17 04/21/17 [Flonase] Albuterol Sulfate [Albuterol 2 puff IH Q6HR PRN 04/21/17 04/21/17 Inhaler] Famotidine [Pepcid] 20 mg PO BID 04/21/17 04/21/17 Omeprazole [PriLOSEC] 20 mg PO DAILY 04/21/17 04/21/17 Promethazine HCl 12.5 mg PO TID PRN 04/21/17 04/21/17 SUMAtriptan Succinate [Imitrex] 100 mg PO AD PRN 04/21/17 04/21/17 predniSONE [PredniSONE] 10 mg PO BID 04/21/17 04/21/17 Previous Rx's Medication Instructions Recorded Cyclobenzaprine [Flexeril] 10 mg PO TID PRN #15 tablet 05/12/17 Lidocaine Patch [Lidoderm 5% patch] 1 each TP DAILY PRN #14 adh..patch 05/12/17 Naproxen [Naprosyn] 500 mg PO BID PRN #20 tablet 05/12/17 Allergies Allergy/AdvReac Type Severity Reaction Status Date / Time codeine Allergy Swelling Verified 08/01/17 09:41 of Lip/Tongue/Throat meperidine [From Demerol] Allergy Swelling Verified 08/01/17 09:41 of Lip/Tongue/Throat morphine Allergy Swelling Verified 08/01/17 09:41 of Lip/Tongue/Throat Penicillins [PCN] Allergy Swelling Verified 08/01/17 09:41 of Lip/Tongue/Throat ketorolac [From Toradol] AdvReac Swelling Verified 08/01/17 09:41 of Lip/Tongue/Throat All systems ED: reviewed and negative except as stated. Review of Systems: As Per HPI Constitutional: Reports: fever, chills. Denies: weakness Cardiovascular: Denies: chest pain, palpitations, dyspnea on exertion, syncope Respiratory: Denies: cough, dyspnea, wheezes, hemoptysis Gastrointestinal: Reports: abdominal pain, nausea, vomiting, diarrhea. Denies: constipation, hematemesis, melena, hematochezia Genitourinary: Denies: urgency, dysuria, frequency, hematuria Musculoskeletal: Denies: back pain, neck pain Integumentary: Denies: rash Neurological: Denies: headache, weakness Abdominal Pain PMH - Past Medical History Medical history: Reports: COPD, GERD, kidney stones, migraine, other Male Surgical History: Reports: appendectomy, cholecystectomy, orthopedic, other , other Psychiatric history: Reports: depression - Social History Smoking status: Current every day smoker Alcohol use: Reports: none Drug use: Reports: none Physical Exam - General Limitations: no limitations General appearance: alert, in no apparent distress - Head Head exam: atraumatic, normocephalic, normal inspection - Eye Eye exam: Present: normal appearance, PERRL, EOMI - ENT ENT exam: normal exam, normal oropharynx, mucous membranes moist - Neck Neck exam: Present: normal inspection, full ROM, trachea midline. Absent: tenderness - Chest Chest inspection: Present: normal inspection, symmetric chest wall rise - Respiratory Respiratory exam: Present: normal lung sounds bilaterally - Cardiovascular Cardiovascular exam: Present: regular rate, normal rhythm, normal heart sounds - Abdominal Exam Abdominal exam: Present: soft, tenderness, normal bowel sounds. Absent: distention, guarding, rebound, rigidity, ascites, mass - Extremities Exam Extremities exam: Present: normal inspection. Absent: pedal edema - Expanded Lower Extremity Exam Gait: observed and normal - Back Exam Back exam: Present: normal inspection, full ROM. Absent: tenderness, CVA tenderness (R), CVA tenderness (L) - Neurological Exam Neurological exam: Present: alert, oriented X3, CN II-XII intact - Psychiatric Psychiatric exam: Present: normal affect, normal mood - Skin Skin exam: Present: warm, dry, intact, normal color. Absent: rash, cyanosis, diaphoresis Course Course Narrative: Patient is a 47-year-old male with a past medical history pancreatitis, COPD, GERD, kidney stones, appendectomy and cholecystectomy that presents the ED with generalized abdominal pain with associated nausea, vomiting, diarrhea and subjective fever and chills 3 days. Patient states that he is having a pancreatitis flare up. He denies any recent ETOH consumption or use. States he occasionally drinks 2-3 a year and occasionally uses marijuana. Denies any other drug use. Denies any NSAID use. States identical symptoms that previously one year ago which required him to be admitted for one week. Patient denies any chest pain, shortness of breath, hematemesis or coffee ground emesis, melena or hematochezia. Pt is a 47-year-old male. Vital stable. Afebrile. Alert and oriented 3. Appears uncomfortable on examination. Heart Tachy. nml rhythm. Lungs diffuse wheezing throughout bilateral lung mcgregor. No retractions, stridor or any signs of respiratory distress/compromise. Abdomen normal inspection, diffuse tenderness with palpation. Nml Bowel sounds. Back normal inspection, nontender. Extremities within normal limits. Neuro no focal neurological deficits noted on exam. Plan to obtain labs and CT at this time. IV fluids,Pain medication and nausea medication given. Plan to reevaluate AST 40, ALT 75, glucose 103, lipase 380 UA shows moderate blood, moderate epithelial cells. Plan to admit to medicine for pancreatitis. CT: Multiple nonobstructing stones throughout both kidneys without evidence of acute hydronephrosis or obstructive uropathy. No acute bowel abnormality. Normal appendix. Postsurgical changes from prior cholecystectomy and anterior abdominal wall hernia repair. Vitals and pain have improved. Will admit to medicine for pain control and IV fluids. Dr. Casiano had [id number] time with patient and agrees with the assessment and treatment plan. Discussed case with Dr. Cash. He will accept pt. No other request at this time. Vital Signs Temperature 98.3 F 08/01/17 09:38 Pulse Rate 112 08/01/17 09:38 Respiratory Rate 20 08/01/17 09:38 Blood Pressure 126/88 08/01/17 09:38 O2 Sat by Pulse Oximetry 98 08/01/17 09:38 Temperature 98.3 F 08/01/17 09:38 Pulse Rate 112 08/01/17 09:38 Respiratory Rate 20 08/01/17 09:38 Blood Pressure 126/88 08/01/17 09:38 O2 Sat by Pulse Oximetry 98 08/01/17 09:38 Oxygen Delivery Oxygen Delivery Room Air Abdominal Pain - Medical Records Medical records reviewed: Yes I reviewed the patient's medical records. - Lab Data Lab results reviewed: Yes I reviewed the patient's lab results. Result diagrams: 08/01/17 10:27 08/01/17 10:20 Lab Results 08/01/17 08/01/17 08/01/17 Range/Units 10:20 10:27 11:09 WBC 9.1 (4.3-11.1) K/mcL RBC 4.65 (4.19-5.50) M/mcL Hgb 14.5 (12.9-16.9) g/dL Hct 42.5 (37.5-50.1) % MCV 91.4 (83.0-100.0) fL MCH 31.2 (28.0-33.3) pg MCHC 34.1 (31.6-35.5) g/dL RDW 13.3 (11.5-14.5) % Plt Count 170 (140-400) K/mcL MPV 10.6 (9.4-12.4) fL Immature Gran % 0.7 (0-4) % Seg Neutrophils % 63.0 % Lymphocytes % 18.5 % Monocytes % 14.9 % Eosinophils % 2.3 % Basophils % 0.6 % Neutrophils # 5.7 (1.6-8.9) K/mcL Lymphocytes # 1.7 (0.6-4.6) K/mcL Monocytes # 1.4 H (0.0-1.3) K/mcL Eosinophils # 0.2 (0.0-0.6) K/mcL Basophils # 0.1 (0.0-0.2) K/mcL Nucleated RBCs/100 WBC 0.2 H (0) /100 WBC Sodium 138 (136-145) mEq/L Potassium 4.0 (3.5-4.5) mEq/L Chloride 103 (98-109) mEq/L Carbon Dioxide 26 (19-29) mEq/L BUN 12 (8-26) mg/dL Creatinine 1.09 (0.72-1.25) mg/dL Est GFR ( Amer) > 60 (> 60) Est GFR (Non-Af Amer) > 60 (> 60) BUN/Creatinine Ratio 11 (6-26) Glucose 103 H (70-99) mg/dL Calculated Osmolality 286 (280-300) Calcium 8.7 (8.6-10.8) mg/dL Total Bilirubin 0.4 (0.2-1.2) mg/dL Direct Bilirubin 0.1 (0.0-0.5) mg/dL Indirect Bilirubin 0.3 (0.0-1.2) mg/dL AST 40 H (5-34) Units/L ALT 75 H (0-55) Units/L Alkaline Phosphatase 112 (38-126) Units/L Serum Total Protein 7.0 (6.0-8.3) g/dL Albumin 3.4 L (3.5-5.0) g/dL Globulin 3.6 H (2.4-3.5) g/dL Albumin/Globulin Ratio 0.9 L (1.1-2.2) Amylase 97 (25-125) Units/L Lipase 380 H (8-78) Units/L Urine Color Yellow (Yellow) Urine Clarity Clear (Clear) Urine pH 6.0 (5.0-8.0) pH Units Ur Specific [place] 1.024 (1.010-1.025) Urine Protein Negative (Neg-Trace) mg/dL Urine Glucose (UA) 250 H (Normal) mg/dL Urine Ketones Negative (Negative) mg/dL Urine Blood Moderate H (Negative) Urine Nitrite Negative (Negative) Urine Bilirubin Negative (Negative) Urine Urobilinogen Normal (Normal) mg/dL Ur Leukocyte Esterase Negative (Negative) Urine Microscopic RBC 5-15 H (0-3) per hpf Urine Microscopic WBC 0-3 (0-3) per hpf Ur Squamous Epith Cells Moderate H (None-Few) per lpf Urine Bacteria None Seen (None-Few) per hpf Hyaline Casts None Seen (None-Few) per lpf Ur Culture Indicated? NO (NO) - Radiology Data Radiology results reviewed: Yes I reviewed the patient's radiology results. Attestation Statement - Attestation Attestation: I, Mohsen Casiano DO have provided [id number] time during the care of this patient. Detailed review the presentation, symptoms, medical history were discussed and reviewed with the mid-level provider Elina Casiano PA-C, PA-C/CHARGE ACCOUNT IDENTIFICATION CLERK. Medical intervention labs and imaging studies were reviewed in detail. See full documentation of physical exam and course of care in the mid-level provider 's note. I agree with the determined course of care, medical intervention and disposition put forth by the mid-level provider. See below documentation for changes or alterations in documentation. 47-year-old male with history of atraumatic pancreatitis presents to emergency room with abdominal pain and discomfort. He describes as identical to his previous pancreatitis in the past. He has had a detailed workup including CT of the abdomen as well as imaging modality of the pancreas. He has previously had a gallbladder removed as well as appendix. He has no other acute issues at this time. Denying fevers chills nausea vomiting diarrhea. Denies chest pain shortness of breath headache or vision change. He complained at this time is the epigastric discomfort secondary to his pancreatitis. Premedication labs are collected in order. Physical exam is otherwise unremarkable except for epigastric discomfort. Patient is tachycardic and slightly diaphoretic. EKG collected reviewed and shows sinus tachycardia. No acute signs of ST segment elevation patient is a right bundle branch block with no comparable study. Patient will be admitted for definitive management of his symptoms at this time. No other concerns or issues noted at this point. Please see detailed documentation of physical exam, medical intervention, medical decision-making and disposition the mid-level provider's note
[2017-08-01 10:41] LABS: Alanine Aminotransferase 75 Units/L (0-55); Albumin 3.4 g/dL (3.5-5.0); Albumin/Globulin Ratio 0.9 (1.1-2.2); Alkaline Phosphatase 112 Units/L (38-126); Amylase 97 Units/L (25-125); Aspartate Amino Transferase 40 Units/L (5-34); BUN/Creatinine Ratio 11 (6-26); Bilirubin,Direct 0.1 mg/dL (0.0-0.5); Bilirubin,Indirect 0.3 mg/dL (0.0-1.2); Bilirubin,Total 0.4 mg/dL (0.2-1.2); Blood Urea Nitrogen 12 mg/dL (8-26); Calcium 8.7 mg/dL (8.6-10.8); Carbon Dioxide 26 mEq/L (19-29); Chloride 103 mEq/L (98-109); Globulin 3.6 g/dL (2.4-3.5); Glucose 103 mg/dL (70-99); Lipase 380 Units/L (8-78); Osmolality,Calculated 286 (280-300); Sodium 138 mEq/L (136-145); eGFR For African Americans > 60 (> 60); eGFR For Non-African Americans > 60 (> 60)
[2017-08-01 11:18] LABS: Bilirubin,Urine Negative (Negative); Blood,Urine Moderate (Negative); Clarity,Urine Clear (Clear); Color,Urine Yellow (Yellow); Glucose,Urine (UA) 250 mg/dL (Normal); Ketones,Urine Negative (Negative); Leukocyte Esterase,Urine Negative (Negative); Nitrite,Urine Negative (Negative); Protein,Urine Negative (Neg-Trace); Specific Gravity,Urine 1.024 (1.010-1.025); Urobilinogen,Urine Normal (Normal)
[2017-08-01 11:20] LABS: Bacteria,Urine None Seen per hpf (None-Few); Hyaline Casts,Urine None Seen per lpf (None-Few); Squamous Epithelial Cell,Urine Moderate per lpf (None-Few); WBC,Urine 0-3 per hpf (0-3)
[2017-08-01] MEDS ORDERED: *HR* Promethazine 25 MG/ML VIAL IVP PRN (11:59)
--- NOTE | 2017-08-01 13:59 | Internal Med History&Physical ---
Date of Encounter: 08/01/17 Time of Encounter: 13:53 Assessment and Plan (1) Abdominal pain Current visit: No Status: Acute 47/male Admitted with abdominal pain. CT scan unremarkable. Elevated lipase/AST and ALT Consults: Gastroenterology. Plan: Admit as inpatient: A IV fluids/close monitoring. Nothing by mouth. IV fluids: Normal saline 100 mL per hour. Pain control: Intravenous dialudad 1 mg every 2 hours. Spoke with Gastro and will follow recommendations. Qualifiers: Abdominal location: generalized Qualified Code(s): R10.84 - Generalized abdominal pain (2) Pancreatitis Current visit: No Status: Resolved Patient is known to have pancreatitis he was hospitalized 6 months back before here with similar symptoms. Qualifiers: Chronicity: chronic Pancreatitis type: idiopathic Qualified Code(s): K86.1 - Other chronic pancreatitis (3) Tobacco abuse Current visit: No Status: Chronic Patient is still actively smoking. Patient is not willing to quit smoking. (4) COPD (chronic obstructive pulmonary disease) Current visit: No Status: Chronic Stable COPD Qualifiers: COPD type: emphysema Emphysema type: unspecified Qualified Code(s): J43.9 - Emphysema, unspecified (5) Marijuana abuse Current visit: No Status: Chronic Patient will occasionally takes marijuana (6) GERD (gastroesophageal reflux disease) Current visit: No Status: Chronic Patient is known to have her GERD. We will start him on intravenous PPI. Qualifiers: Esophagitis presence: esophagitis presence not specified Qualified Code(s) : K21.9 - Gastro-esophageal reflux disease without esophagitis (7) DVT prophylaxis Current visit: No Status: Acute SCD Medical decision making: This patient has a moderate to severe risk of worsening in spite of being on appropriate medication due to the underlying comorbid condition. Internal Medicine - H&P: HPI Chief complaint: abdominal pain Admitted From: Emergency Dept Plans for Post Hospital Care: Home History of present illness: Mr. Hanks is a 47 year old male who has a primary care physician from [facility]. Patient was complaining of abdominal pain umbilical region since last Tuesday. The pain was sharp in nature, nonradiating, localized, worsening with the food, relieved by rest and was waxing and waning in nature. Patient was very concerned about this pain and that is the reason he came to emergency room for further management and evaluation. Patient denies chest pain, shortness of breath, dizziness and diarrhea. Workup in the emergency room: Patient was evaluated in the emergency room. Labs were drawn. Chest x-ray was unremarkable. CT abdomen was suggestive of multiple nonobstructing stones in the kidneys. Pancreas unremarkable. Elevated lipase and AST/ALT Reason for admission: Pancreatitis History: Noncontributory Past Med Surg Social Fam HX - Past Medical History Medical history: COPD, GERD, kidney stones, migraine, other Psychiatric history: depression - Past Surgical History Surgical History: appendectomy, cholecystectomy, other - Social History Smoking Status: Current every day smoker Smokeless Tobacco Status: No Alcohol use: none Drug use: none - Family History Mother Living Status: Hx Family Respiratory Disorders: Yes (asthma) Father Living Status: Hx Family Endocrine Disorder: Yes (Diabetes Mellitus) Internal Medicine - H&P: Meds Albuterol Sulfate [Albuterol Inhaler] 2 puff IH Q6H PRN 08/01/17 [History] Lansoprazole [Prevacid] 30 mg PO DAILY 08/01/17 [History] Promethazine [Phenergan] 12.5 mg PO Q8HR PRN 08/01/17 [History] SUMAtriptan succinate [Sumatriptan Succinate] 6 mg SQ AD PRN 08/01/17 [History] 3 Allergy/AdvReac Type Severity Reaction Status Date / Time codeine Allergy Swelling Verified 08/01/17 09:41 of Lip/Tongue/Throat meperidine [From Demerol] Allergy Swelling Verified 08/01/17 09:41 of Lip/Tongue/Throat morphine Allergy Swelling Verified 08/01/17 09:41 of Lip/Tongue/Throat Penicillins [PCN] Allergy Swelling Verified 08/01/17 09:41 of Lip/Tongue/Throat ketorolac [From Toradol] AdvReac Swelling Verified 08/01/17 09:41 of Lip/Tongue/Throat All Systems PM: A 10-system review of systems was performed and is negative for pertinent findings except as documented above in the HPI. - Constitutional Constitutional: no chills, no fever(s), no night sweats - EENT Eyes: no change in vision, no discharge, no pain, no photophobia Ears: no ear discharge, no ear pain, no tinnitus Nose, mouth and throat: no dysphagia, no nasal discharge, no neck pain, no sore throat - Cardiovascular Cardiovascular ROS IM: no chest pain, no diaphoresis, no dyspnea, no lightheadedness, no palpitations, no syncope - Respiratory Respiratory: no cough, no dyspnea, no wheezing, no excessive phlegm production - Gastrointestinal Gastrointestinal: abdominal pain, nausea, vomiting, no diarrhea, no hematemesis , no hematochezia, no melena - Musculoskeletal Musculoskeletal ROS IM: no numbness, no tingling - Integumentary Integumentary IM: no rash, no unusual bruising - Neurological Neurological ROS: no confusion, no convulsions, no focal weakness, no numbness, no tingling, no tremor(s) - Hematologic/Lymphatic Hematologic/Lymphatic: no easy bruising - Constitutional Vitals: Temp Pulse Resp BP Pulse Ox 98.8 F 73 14 116/71 93 08/01/17 12:55 08/01/17 12:55 08/01/17 12:55 08/01/17 12:55 08/01/17 12:55 General appearance: Present: A&O X 3, pleasant, no acute distress, answers questions appropriately - Head Head exam: Present: atraumatic, normocephalic - Eye Eye exam: Present: PERRL, conjuntiva pink, sclera anicteric Pupils: Present: PERRL - Neck Neck exam general surgery: Present: supple, trachea midline. Absent: lymphadenopathy - Respiratory Respiratory exam: Present: CTAB. Absent: accessory muscle use, rales, rhonchi, wheezes - Cardiovascular Cardiovascular exam: Present: RRR, +S1, +S2. Absent: diastolic murmur, gallop, rubs, systolic murmur - GI/Abdominal GI/Abdominal exam: Present: normal bowel sounds, soft, no peritoneal signs. Absent: distended, tenderness - Extremities Exam Extremities exam: Present: warm, radial pulses palpable and symmetrical. Absent : calf tenderness, cyanotic, pedal edema - Neurological Exam Neurological exam: Present: CN II-XII intact, oriented X3, no focal deficits. Absent: pronater drift, facial droop, speech deficit - Skin Skin exam: Present: dry, intact Internal Med - H&P Results - Labs CBC & Chem 7: 08/01/17 10:27 08/01/17 10:20
[2017-08-01] MEDS ORDERED: Naloxone 0.4 MG/ML INJ IVP PRN (14:14)
[2017-08-01] MEDS: *HR* HYDROmorphone (PF) 1 MG/ML SYRINGE IVP PRN ×2 (17:00→19:53)
[2017-08-01] MEDS: 0.9 % Sodium Chloride 1,000 ML IVC SCH (17:01)
[2017-08-01] MEDS: Nicotine 21 MG PATCH.TD24 TD SCH (18:02)
[2017-08-01] MEDS: *HR* Promethazine 25 MG/ML VIAL IVP PRN (21:07)
[2017-08-02] MEDS: *HR* HYDROmorphone (PF) 1 MG/ML SYRINGE IVP PRN ×6 (00:37→18:50)
[2017-08-02] MEDS: *HR* Promethazine 25 MG/ML VIAL IVP PRN ×3 (03:17→17:18)
[2017-08-02 04:02] LABS: INR 1.1; Prothrombin Time 11.3 Seconds (9.4-12.1)
[2017-08-02 04:05] LABS: Activated Partial Thrombo Time 28.3 Seconds (26.0-36.0)
[2017-08-02 04:07] LABS: Basophils % 0.7 %; Eosinophils # 0.2 K/mcL (0.0-0.6); Eosinophils % 3.3 %; Hematocrit 42.6 % (37.5-50.1); Hemoglobin 14.2 g/dL (12.9-16.9); Immature Granulocytes % 0.3 % (0-4); Lymphocytes # 1.9 K/mcL (0.6-4.6); Mean Corpuscular HGB Conc 33.3 g/dL (31.6-35.5); Mean Corpuscular Hemoglobin 31.3 pg (28.0-33.3); Mean Platelet Volume 10.7 fL (9.4-12.4); Monocytes # 0.8 K/mcL (0.0-1.3); Monocytes % 14.2 %; Neutrophils # 2.8 K/mcL (1.6-8.9); Platelet Count 165 K/mcL (140-400); Red Blood Count 4.53 M/mcL (4.19-5.50); Red Cell Distribution Width 13.3 % (11.5-14.5); Segmented Neutrophils % 48.5 %
[2017-08-02 04:13] LABS: Alanine Aminotransferase 56 Units/L (0-55); Albumin 3.2 g/dL (3.5-5.0); Albumin/Globulin Ratio 1.1 (1.1-2.2); Alkaline Phosphatase 95 Units/L (38-126); Aspartate Amino Transferase 27 Units/L (5-34); BUN/Creatinine Ratio 10 (6-26); Bilirubin,Total 0.7 mg/dL (0.2-1.2); Blood Urea Nitrogen 9 mg/dL (8-26); Calcium 8.4 mg/dL (8.6-10.8); Carbon Dioxide 28 mEq/L (19-29); Chloride 106 mEq/L (98-109); Chol/HDL Ratio 3.9 (0-4.9); Cholesterol 128 mg/dL (< 200); Glucose 88 mg/dL (70-99); HDL Cholesterol 33 mg/dL (40-59); LDL Cholesterol,Calculated 78 mg/dL (0-99); Magnesium 1.8 mg/dL (1.6-2.6); Osmolality,Calculated 290 (280-300); Phosphorous 3.1 mg/dL (2.3-4.7); Sodium 141 mEq/L (136-145); Total Protein 6.2 g/dL (6.0-8.3); Triglycerides 83 mg/dL (< 150); eGFR For African Americans > 60 (> 60); eGFR For Non-African Americans > 60 (> 60)
[2017-08-02] MEDS: 0.9 % Sodium Chloride 1,000 ML IVC SCH (07:36)
[2017-08-02] MEDS: Nicotine 21 MG PATCH.TD24 TD SCH (07:37)
--- NOTE | 2017-08-02 10:58 | Gastroenterology Consult Note ---
<Lucia Green - Last Filed: 08/02/17 10:46> Date of Encounter: 08/02/17 Time of Encounter: 09:30 - Assessment and plan (1) Pancreatitis Current Visit: Yes Status: Acute Assessment and plan: Pt may have idiopathic pancreatitis. Work up has been negative thus far. Had negative EGD/EUS. Labs are improving with NPO status and IVF. Pt has continued abdominal pain, will proceed with EGD today. Will also check gastrin today. Qualifiers: Chronicity: chronic Pancreatitis type: idiopathic Qualified Code(s): K86.1 - Other chronic pancreatitis (2) Diarrhea Current Visit: No Status: Chronic Assessment and plan: GI panel ordered, stool studies and colonoscopy were negative 02/12. Qualifiers: Diarrhea type: unspecified type Qualified Code(s): R19.7 - Diarrhea, unspecified - Time Spent With Patient Total time spent is greater than 50% in coordination of care (as documented) at patient's floor/unit and/or counseling patient: GI History of Present Illness - Data of Consult Patient: known to practice within the last 3 years Consult date: 08/02/17 Requesting Physician: Marlo Oshea MD - Consult Narrative Reason for consult: pancreatitis History of present illness: Mr. Hanks is a 47 year old male with a pmhx of pancreatitis, kidney stones, GERD, and back pain. He presents with abdominal pain. He has had chronic abdominal pain for approximately 6 months along with diarrhea at least 2-3 times a day. He was hospitalized in January with abdominal pain and pancreatitis. He had EGD and colonoscopy at that time by Dr Bernstein, MRI was normal. He saw Dr Garrett as outpatient stool testing was normal. He had EUS 05/15 which was also normal. He denies chest pain, shortness of breath or dizziness. He has GERD and complains of nausea without vomiting. He denies bloody or tarry stools. Chest x- ray was unremarkable. CT abdomen was suggestive of multiple nonobstructing stones in the kidneys. Pancreas unremarkable. Labs showed elevated lipase and AST/ALT, now improved. COLON: 02/12 2 mm polyp hyperplastic, random biopsies negative EGD: EUS 05/15 Dr Garrett was normal NSAIDS/ASA: none ANTICOAGULANTS none Past Med Surg Social Fam HX - Past Medical History Medical history: COPD, GERD, kidney stones, migraine, other Psychiatric history: depression - Past Surgical History Surgical History: appendectomy, cholecystectomy, other - Social History Smoking Status: Current every day smoker Packs per day: 2 Smokeless Tobacco Status: No Alcohol use: none Drug use: none - Family History Mother Living Status: Age at : 56 Cause of : copd Hx Family Respiratory Disorders: Yes (asthma) Father Adopted: No Living Status: Age at : 50 Cause of : Diabetes Hx Family Endocrine Disorder: Yes (Diabetes Mellitus) Review of Systems: GI: as per [facility] GENERAL: reports fever and chills EYES: denies yellow discoloration ENT: denies pain with swallowing or difficulty swallowing CARDIO: denies chest pain, palpitations RESP: Shortness of breath with exertion : denies change in color of urine NEURO: denies any weakness HEME: Denies any bruising MS: chronic joint pain, and back pain. DERM: denies rash or itching PSYCH: history of anxiety or depression - Constitutional Vitals: Temp Pulse Resp BP Pulse Ox 98.4 F 64 16 145/81 95 08/02/17 07:12 08/02/17 07:12 08/02/17 07:12 08/02/17 07:12 08/02/17 07:12 Exam: CONSTITUTIONAL:~alert, no acute distress.~HEAD:~normocephalic.~EYES:~no jaundice.~NECK:~no obvious swelling.~HEART:~regular rate and rhythm, no murmurs. ~LUNGS:~expiratory wheezes bilaterally~ABDOMEN:~non distended, soft, tender epigastric area, no masses palpable, no organomegaly.~RECTAL EXAM:~Deferred.~ EXTREMITIES:~no clubbing, cyanosis or edema.~SKIN:~multiple large tattoos noted , no stigmata of chronic liver disease.~NEUROLOGIC:~no obvious focal defect.~~~~ Results - Labs CBC & Chem 7: 08/02/17 03:10 08/02/17 03:10 Labs: Last Result Calcium 8.4 mg/dL (8.6-10.8) L 08/02/17 03:10 Troponin I 0.01 ng/mL (0-0.03) 08/02/17 03:10 Triglycerides 83 mg/dL (< 150) 08/02/17 03:10 Entire Visit Hgb 14.2 g/dL (12.9-16.9) 08/02/17 03:10 Hct 42.6 % (37.5-50.1) 08/02/17 03:10 PT 11.3 Seconds (9.4-12.1) 08/02/17 03:10 Total Bilirubin 0.7 mg/dL (0.2-1.2) 08/02/17 03:10 AST 27 Units/L (5-34) 08/02/17 03:10 ALT 56 Units/L (0-55) H 08/02/17 03:10 Amylase 97 Units/L (25-125) 08/01/17 10:20 Lipase 78 Units/L (8-78) 08/02/17 03:10 - ABG ABG results: PT/INR, D-dimer PT 11.3 Seconds (9.4-12.1) 08/02/17 03:10 Consult Discharge Plan - Plan Referrals: Adonis Ramirez D.O. [Primary Care Provider] - <Baltazar Amin - Last Filed: 08/04/17 07:00> Date of Encounter: 08/04/17 - Time Spent With Patient Total time spent is greater than 50% in coordination of care (as documented) at patient's floor/unit and/or counseling patient: GI History of Present Illness - Data of Consult Requesting Physician: Marlo Oshea MD - Consult Narrative History of present illness: Mr. Hanks is a 47 year old male - Constitutional Vitals: Temp Pulse Resp BP Pulse Ox 98.5 F 75 16 120/77 95 08/04/17 04:36 08/04/17 04:36 08/04/17 04:36 08/04/17 04:36 08/04/17 04:36 Results - Labs CBC & Chem 7: 08/04/17 06:22 08/04/17 06:22 Labs: Last Result Calcium 8.8 mg/dL (8.6-10.8) 08/04/17 06:22 Troponin I 0.01 ng/mL (0-0.03) 08/02/17 03:10 Triglycerides 83 mg/dL (< 150) 08/02/17 03:10 Entire Visit Hgb 14.3 g/dL (12.9-16.9) 08/04/17 06:22 Hct 42.6 % (37.5-50.1) 08/04/17 06:22 PT 11.3 Seconds (9.4-12.1) 08/02/17 03:10 Total Bilirubin 0.7 mg/dL (0.2-1.2) 08/03/17 03:21 AST 20 Units/L (5-34) 08/03/17 03:21 ALT 41 Units/L (0-55) 08/03/17 03:21 Amylase 97 Units/L (25-125) 08/01/17 10:20 Lipase 73 Units/L (8-78) 08/03/17 03:21 - ABG ABG results: PT/INR, D-dimer PT 11.3 Seconds (9.4-12.1) 08/02/17 03:10 - Attending Attestation 47 eyar old WM who has a 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 Plan EGD today to rule out anastomotic ulcer etc. Further recommendations post EGD. I examined this patient and my medical decision-making was reviewed with the Resident Physician. I agree with the documented findings, disposition and treatment plan as described except to the extent set forth below.
[2017-08-02] MEDS ORDERED: Ipratropium/Albuterol Neb 3 ML IH PRN (12:30)
--- NOTE | 2017-08-02 12:59 | Anesthesia Evaluation PreOp ---
Date of Encounter: 08/02/17 Time of Encounter: 12:55 - Past History Planned Operation: EGD Cardiac History: Denies any Significant Hx Pulmonary History: COPD, Other (chronic marijuana smoking) [employer] History: Denies Any Significant HX Other Medical History: Other (chronic pancreatitis) Anesthesia History: No Prior Anesthetic Complications, Past Anesthesia Alcohol Use: none Drug use: marijuana Medications and Allergies Albuterol Sulfate [Albuterol Inhaler] 2 puff IH Q6H PRN 08/01/17 [History] Lansoprazole [Prevacid] 30 mg PO DAILY 08/01/17 [History] Promethazine [Phenergan] 12.5 mg PO Q8HR PRN 08/01/17 [History] SUMAtriptan succinate [Sumatriptan Succinate] 6 mg SQ AD PRN 08/01/17 [History] 3 Allergy/AdvReac Type Severity Reaction Status Date / Time codeine Allergy Swelling Verified 08/01/17 09:41 of Lip/Tongue/Throat meperidine [From Demerol] Allergy Swelling Verified 08/01/17 09:41 of Lip/Tongue/Throat morphine Allergy Swelling Verified 08/01/17 09:41 of Lip/Tongue/Throat Penicillins [PCN] Allergy Swelling Verified 08/01/17 09:41 of Lip/Tongue/Throat ketorolac [From Toradol] AdvReac Swelling Verified 08/01/17 09:41 of Lip/Tongue/Throat - Meds/Allergy Pre-op Review Medications Reviewed: Yes Allergies Reviewed: Yes Beta Blockers on Current Med List: No Anesthesia Results - Labs 08/02/17 03:10 08/02/17 03:10 Anesthesia Exam Selected Entries 08/02/17 11:13 Temperature 98.6 F Pulse Rate 76 Respiratory Rate 16 Blood Pressure 130/75 O2 Sat by Pulse Oximetry 96 Weight: 108 kg NPO (# of Hours): over 8 hours - HEENT Pupil (Motor): Pupils equal Mallampati: I Teeth: Normal Oral Opening: Greater than 3 - Cardiac Rhythm: Regular Murmur: None - Pulmonary Breath Sounds: bilateral Clear Respiratory Effort: Symmetrical Anesthesia Assess/Plan ASA Score: 2 Modified Sharlene Scale for Level of Consciousness: Cooperative, oriented, and tranquil Anesthetic Plan: MAC Monitoring Plan: Standard Monitors Recovery Plan: Other
[2017-08-02] MEDS ORDERED: Propofol 500 MG/50 ML INFUS..BTL ONE (13:04)
[2017-08-02] MEDS ORDERED: Tetracaine/Benzocaine/Butamben 200MG/SPRAY (100SPY/BOT) MM ONE (13:08)
--- NOTE | 2017-08-02 15:23 | Internal Med Progress Note ---
Date of Encounter: 08/02/17 Time of Encounter: 09:00 - Assessment and plan (1) Pancreatitis Current Visit: Yes Status: Acute Assessment and plan: Etiology is undetermined. Consider idiopathic. Patient had cholecystectomy already. We will continue IV fluid. Lipase trended down. Will start clear liquid diet. Qualifiers: Chronicity: chronic Pancreatitis type: idiopathic Qualified Code(s): K86.1 - Other chronic pancreatitis (2) Diarrhea Current Visit: No Status: Chronic Assessment and plan: We will check GI panel. Qualifiers: Diarrhea type: unspecified type Qualified Code(s): R19.7 - Diarrhea, unspecified (3) Tobacco abuse Current Visit: No Status: Chronic Assessment and plan: On nicotine patch (4) COPD (chronic obstructive pulmonary disease) Current Visit: No Status: Chronic Assessment and plan: No signs of exacerbation. Continue nebulizer when necessary Qualifiers: COPD type: emphysema Emphysema type: unspecified Qualified Code(s): J43.9 - Emphysema, unspecified (5) DVT prophylaxis Current Visit: No Status: Acute Assessment and plan: Heparin subcutaneously (6) Abdominal pain Current Visit: No Status: Acute Assessment and plan: Probably due to pancreatitis. Continue pain management. Follow up GI panel. Qualifiers: Abdominal location: generalized Qualified Code(s): R10.84 - Generalized abdominal pain (7) Abnormal liver function Current Visit: Yes Status: Acute Assessment and plan: Mild elevated AST and ALT, probably due to pancreatitis. Enzyme level trended down now. We will check hepatitis panel in a.m. - Time Spent With Patient 25 - 35 minutes - Subjective Interval history: Patient was seen and examined. Still complaining of mild abdominal pain. Vital signs stable. GI consult appreciated. EGD has been done, shows gastritis. Lipase level trended down. We will continue IV fluid, start a clear liquid diet from dinner. Continue closely monitor patient. Patient has elevated liver enzyme, will check hepatitis panel in a.m. - Constitutional Vitals: Temp Pulse Resp BP Pulse Ox 98.5 F 62 18 128/84 95 08/02/17 12:56 08/02/17 12:56 08/02/17 12:56 08/02/17 12:56 08/02/17 12:56 General appearance: Present: A&O X 3, pleasant, no acute distress, answers questions appropriately - Head Head exam: Present: atraumatic, normocephalic - Eye Eye exam: Present: PERRL, conjuntiva pink, sclera anicteric Pupils: Present: PERRL - Neck Neck exam general surgery: Present: supple, trachea midline. Absent: lymphadenopathy - Respiratory Respiratory exam: Present: CTAB. Absent: accessory muscle use, rales, rhonchi, wheezes - Cardiovascular Cardiovascular exam: Present: RRR, +S1, +S2. Absent: diastolic murmur, gallop, rubs, systolic murmur - GI/Abdominal GI/Abdominal exam: Present: normal bowel sounds, soft, tenderness (Mild tenderness on RUQ and LUQ without guarding or rebound), no peritoneal signs. Absent: distended - Extremities Exam Extremities exam: Present: warm, radial pulses palpable and symmetrical. Absent : calf tenderness, cyanotic, pedal edema - Neurological Exam Neurological exam: Present: CN II-XII intact, oriented X3, no focal deficits. Absent: pronater drift, facial droop, speech deficit - Skin Skin exam: Present: dry, intact Internal Medicine: Result - Labs CBC & Chem 7: 08/02/17 03:10 08/02/17 03:10 Labs: Short CBC 08/02/17 Range/Units 03:10 WBC 5.8 (4.3-11.1) K/mcL Hgb 14.2 (12.9-16.9) g/dL Hct 42.6 (37.5-50.1) % Plt Count 165 (140-400) K/mcL Neutrophils # 2.8 (1.6-8.9) K/mcL BMP 08/02/17 03:10 Sodium 141 Potassium 4.0 Chloride 106 Carbon Dioxide 28 BUN 9 Creatinine 0.91 Glucose 88 Calcium 8.4 L Cardiac Enzymes 08/01/17 08/02/17 Range/Units 19:58 03:10 Troponin I 0.01 0.01 (0-0.03) ng/mL Liver Function 08/02/17 Range/Units 03:10 Total Bilirubin 0.7 (0.2-1.2) mg/dL AST 27 (5-34) Units/L ALT 56 H (0-55) Units/L Alkaline Phosphatase 95 (38-126) Units/L Albumin 3.2 L (3.5-5.0) g/dL - ABG Interpretation ABG results: PT/INR, D-dimer PT 11.3 Seconds (9.4-12.1) 08/02/17 03:10 - VTE Documentation of Mechanical Device: Graduated compression elastic hosiery Consult Discharge Plan - Plan Referrals: Adonis Ramirez D.O. [Primary Care Provider] -
[2017-08-02] MEDS: Famotidine 20 MG/2 ML VIAL IVP SCH (17:17)
[2017-08-02] MEDS: *HR* Heparin 5,000 UNIT/ML VIAL SQ SCH (18:46)
[2017-08-03] MEDS: *HR* HYDROmorphone (PF) 1 MG/ML SYRINGE IVP PRN ×5 (00:34→21:21)
[2017-08-03] MEDS: *HR* Promethazine 25 MG/ML VIAL IVP PRN ×2 (00:35→23:19)
[2017-08-03 04:07] LABS: Basophils # 0.1 K/mcL (0.0-0.2); Basophils % 0.9 %; Eosinophils # 0.3 K/mcL (0.0-0.6); Eosinophils % 4.3 %; Hematocrit 43.8 % (37.5-50.1); Hemoglobin 14.3 g/dL (12.9-16.9); Immature Granulocytes % 0.3 % (0-4); Lymphocytes # 2.3 K/mcL (0.6-4.6); Lymphocytes % 35.9 %; Mean Corpuscular HGB Conc 32.6 g/dL (31.6-35.5); Mean Corpuscular Hemoglobin 30.7 pg (28.0-33.3); Mean Platelet Volume 10.9 fL (9.4-12.4); Monocytes # 0.9 K/mcL (0.0-1.3); Monocytes % 13.6 %; Neutrophils # 2.9 K/mcL (1.6-8.9); Platelet Count 179 K/mcL (140-400); Red Blood Count 4.66 M/mcL (4.19-5.50); Red Cell Distribution Width 13.1 % (11.5-14.5)
[2017-08-03 04:20] LABS: Alanine Aminotransferase 41 Units/L (0-55); Albumin 3.2 g/dL (3.5-5.0); Alkaline Phosphatase 91 Units/L (38-126); Aspartate Amino Transferase 20 Units/L (5-34); BUN/Creatinine Ratio 9 (6-26); Bilirubin,Total 0.7 mg/dL (0.2-1.2); Blood Urea Nitrogen 9 mg/dL (8-26); Calcium 8.6 mg/dL (8.6-10.8); Carbon Dioxide 27 mEq/L (19-29); Chloride 105 mEq/L (98-109); Globulin 3.3 g/dL (2.4-3.5); Glucose 97 mg/dL (70-99); Lipase 73 Units/L (8-78); Osmolality,Calculated 287 (280-300); Potassium 4.3 mEq/L (3.5-4.5); Sodium 139 mEq/L (136-145); Total Protein 6.5 g/dL (6.0-8.3); eGFR For African Americans > 60 (> 60); eGFR For Non-African Americans > 60 (> 60)
[2017-08-03] MEDS: *HR* Heparin 5,000 UNIT/ML VIAL SQ SCH ×2 (06:49→16:58)
[2017-08-03] MEDS: Famotidine 20 MG/2 ML VIAL IVP SCH (06:51)
[2017-08-03] MEDS: *HR* OxyCODONE/APAP 5/325 TABLET PO PRN ×2 (09:15→16:57)
[2017-08-03] MEDS: Ondansetron ODT 4 MG TAB.RAPDIS SL PRN ×2 (09:16→19:47)
[2017-08-03] MEDS: Nicotine 21 MG PATCH.TD24 TD SCH (10:09)
[2017-08-03] MEDS: Sucralfate 1 GM TABLET PO SCH ×3 (10:10→21:17)
[2017-08-03 11:42] LABS: Hepatitis B Core IgM Nonreactive (Nonreactive); Hepatitis B Surface Antigen Nonreactive (Nonreactive)
[2017-08-03 11:43] LABS: Hepatitis C Virus Antibody Reactive (Nonreactive)
[2017-08-03 12:26] LABS: Hepatitis A Antibody IgM Nonreactive (Nonreactive)
--- NOTE | 2017-08-03 15:04 | Internal Med Progress Note ---
Date of Encounter: 08/03/17 Time of Encounter: 10:00 - Assessment and plan (1) Pancreatitis Current Visit: Yes Status: Acute Assessment and plan: Etiology is undetermined. Consider idiopathic. Patient had cholecystectomy already. We will continue IV fluid. Lipase trended down. On clear liquid diet. Qualifiers: Chronicity: chronic Pancreatitis type: idiopathic Qualified Code(s): K86.1 - Other chronic pancreatitis (2) Diarrhea Current Visit: No Status: Chronic Assessment and plan: We will check GI panel. Qualifiers: Diarrhea type: unspecified type Qualified Code(s): R19.7 - Diarrhea, unspecified (3) Tobacco abuse Current Visit: No Status: Chronic Assessment and plan: On nicotine patch (4) COPD (chronic obstructive pulmonary disease) Current Visit: No Status: Chronic Assessment and plan: No signs of exacerbation. Continue nebulizer when necessary Qualifiers: COPD type: emphysema Emphysema type: unspecified Qualified Code(s): J43.9 - Emphysema, unspecified (5) DVT prophylaxis Current Visit: No Status: Acute Assessment and plan: Heparin subcutaneously (6) Abdominal pain Current Visit: No Status: Acute Assessment and plan: Probably due to pancreatitis or gastritis. Continue pain management. Add carafate per GI. Follow up GI panel. Qualifiers: Abdominal location: generalized Qualified Code(s): R10.84 - Generalized abdominal pain (7) Abnormal liver function Current Visit: Yes Status: Acute Assessment and plan: Mild elevated AST and ALT, probably due to pancreatitis. Enzyme level normalized now. Hepatitis panel shows Hep C positive. GI is on case. - Time Spent With Patient 25 - 35 minutes - Subjective Interval history: Patient was seen and examined. Still complaining of mild to moderate abdominal pain. Vital signs stable. Lipase level trended down. Abd pain is also possibly due to gastritis. We will continue clear liquid diet and pain medication. Liver enzyme is normal today. Hep C positive. GI on case and recommendation will be followed. - Constitutional Vitals: Temp Pulse Resp BP Pulse Ox 98.5 F 63 18 107/63 95 08/03/17 10:51 08/03/17 10:51 08/03/17 10:51 08/03/17 10:51 08/03/17 10:51 General appearance: Present: A&O X 3, pleasant, no acute distress, answers questions appropriately - Head Head exam: Present: atraumatic, normocephalic - Eye Eye exam: Present: PERRL, conjuntiva pink, sclera anicteric Pupils: Present: PERRL - Neck Neck exam general surgery: Present: supple, trachea midline. Absent: lymphadenopathy - Respiratory Respiratory exam: Present: CTAB. Absent: accessory muscle use, rales, rhonchi, wheezes - Cardiovascular Cardiovascular exam: Present: RRR, +S1, +S2. Absent: diastolic murmur, gallop, rubs, systolic murmur - GI/Abdominal GI/Abdominal exam: Present: normal bowel sounds, soft, tenderness (Tenderness on RUQ and epigastric area, no rebound or guarding), no peritoneal signs. Absent: distended - Extremities Exam Extremities exam: Present: warm, radial pulses palpable and symmetrical. Absent : calf tenderness, cyanotic, pedal edema - Neurological Exam Neurological exam: Present: CN II-XII intact, oriented X3, no focal deficits. Absent: pronater drift, facial droop, speech deficit - Skin Skin exam: Present: dry, intact Internal Medicine: Result - Labs CBC & Chem 7: 08/03/17 03:21 08/03/17 03:21 Labs: Short CBC 08/03/17 Range/Units 03:21 WBC 6.5 (4.3-11.1) K/mcL Hgb 14.3 (12.9-16.9) g/dL Hct 43.8 (37.5-50.1) % Plt Count 179 (140-400) K/mcL Neutrophils # 2.9 (1.6-8.9) K/mcL BMP 08/03/17 03:21 Sodium 139 Potassium 4.3 Chloride 105 Carbon Dioxide 27 BUN 9 Creatinine 0.95 Glucose 97 Calcium 8.6 Liver Function 08/03/17 Range/Units 03:21 Total Bilirubin 0.7 (0.2-1.2) mg/dL AST 20 (5-34) Units/L ALT 41 (0-55) Units/L Alkaline Phosphatase 91 (38-126) Units/L Albumin 3.2 L (3.5-5.0) g/dL - ABG Interpretation ABG results: PT/INR, D-dimer PT 11.3 Seconds (9.4-12.1) 08/02/17 03:10 - VTE Documentation of Mechanical Device: Graduated compression elastic hosiery Consult Discharge Plan - Plan Referrals: Adonis Ramirez D.O. [Primary Care Provider] -
--- NOTE | 2017-08-03 18:23 | Electrocardiograph Report ---
[place] [id number] Test Date: 2017-08-01 Pat Name: Roshan Hanks Department: 104 Room: 3A23 Gender: Vp Securities: : 1970 Requested By: Elina Gomes Order Number: [id number] Reading MD: Clifford Bone DO Measurements Intervals [facility] Rate: 84 P: 76 GA: 167 QRS: -48 QRSD: 146 T: 47 QT: 367 QTc: 408 Interpretive Statements SINUS RHYTHM WITH SINUS ARRHYTHMIA INDETERMINATE AXIS RIGHT BUNDLE BRANCH BLOCK Electronically Signed On 08-03-2017 18:22:08 EST by Clifford Bone DO
[2017-08-03] MEDS: Famotidine 20 MG TABLET PO SCH (21:17)
[2017-08-04] MEDS: *HR* Heparin 5,000 UNIT/ML VIAL SQ SCH ×2 (05:15→17:04)
[2017-08-04] MEDS: Ondansetron ODT 4 MG TAB.RAPDIS SL PRN ×2 (05:15→12:30)
[2017-08-04] MEDS: Sucralfate 1 GM TABLET PO SCH ×4 (05:16→21:25)
[2017-08-04] MEDS: *HR* HYDROmorphone (PF) 1 MG/ML SYRINGE IVP PRN ×9 (05:16→23:29)
[2017-08-04 06:39] LABS: Basophils % 0.7 %; Eosinophils # 0.3 K/mcL (0.0-0.6); Eosinophils % 5.4 %; Hematocrit 42.6 % (37.5-50.1); Hemoglobin 14.3 g/dL (12.9-16.9); Immature Granulocytes % 0.2 % (0-4); Lymphocytes # 2.1 K/mcL (0.6-4.6); Lymphocytes % 34.7 %; Mean Corpuscular HGB Conc 33.6 g/dL (31.6-35.5); Mean Corpuscular Hemoglobin 31.1 pg (28.0-33.3); Mean Corpuscular Volume 92.6 fL (83.0-100.0); Mean Platelet Volume 10.3 fL (9.4-12.4); Monocytes # 0.8 K/mcL (0.0-1.3); Monocytes % 12.8 %; Neutrophils # 2.7 K/mcL (1.6-8.9); Platelet Count 170 K/mcL (140-400); Red Cell Distribution Width 12.8 % (11.5-14.5); Segmented Neutrophils % 46.2 %
[2017-08-04 06:53] LABS: BUN/Creatinine Ratio 8 (6-26); Blood Urea Nitrogen 8 mg/dL (8-26); Calcium 8.8 mg/dL (8.6-10.8); Carbon Dioxide 26 mEq/L (19-29); Chloride 104 mEq/L (98-109); Glucose 88 mg/dL (70-99); Osmolality,Calculated 286 (280-300); Sodium 139 mEq/L (136-145); eGFR For African Americans > 60 (> 60); eGFR For Non-African Americans > 60 (> 60)
[2017-08-04 06:54] LABS: Potassium 4.3 mEq/L (3.5-4.5)
[2017-08-04] MEDS: Famotidine 20 MG TABLET PO SCH ×2 (07:59→21:26)
[2017-08-04] MEDS: Nicotine 21 MG PATCH.TD24 TD SCH (08:00)
[2017-08-04] MEDS: *HR* Promethazine 25 MG/ML VIAL IVP PRN ×3 (08:03→21:26)
--- NOTE | 2017-08-04 15:00 | Internal Med Progress Note ---
Date of Encounter: 08/04/17 Time of Encounter: 10:00 - Assessment and plan (1) Pancreatitis Current Visit: Yes Status: Acute Assessment and plan: Pt has acute elevation of lipase, consider acute pancreatitis. Etiology is undetermined. Consider idiopathic. Patient had cholecystectomy already. We will continue IV fluid. Lipase trended down. On full liquid diet. Qualifiers: Chronicity: acute Pancreatitis type: idiopathic Acute pancreatitis complication: uninfected necrosis Qualified Code(s): K85.01 - Idiopathic acute pancreatitis with uninfected necrosis (2) Diarrhea Current Visit: No Status: Chronic Assessment and plan: Pt has no diarrhea since admission.. Qualifiers: Diarrhea type: unspecified type Qualified Code(s): R19.7 - Diarrhea, unspecified (3) Tobacco abuse Current Visit: No Status: Chronic Assessment and plan: On nicotine patch (4) COPD (chronic obstructive pulmonary disease) Current Visit: No Status: Chronic Assessment and plan: No signs of exacerbation. Continue nebulizer when necessary Qualifiers: COPD type: emphysema Emphysema type: unspecified Qualified Code(s): J43.9 - Emphysema, unspecified (5) DVT prophylaxis Current Visit: No Status: Acute Assessment and plan: Heparin subcutaneously (6) Abdominal pain Current Visit: No Status: Acute Assessment and plan: Probably due to pancreatitis or gastritis. Continue pain management. Add carafate per GI. Qualifiers: Abdominal location: generalized Qualified Code(s): R10.84 - Generalized abdominal pain (7) Abnormal liver function Current Visit: Yes Status: Acute Assessment and plan: Mild elevated AST and ALT, probably due to pancreatitis. Enzyme level normalized now. Hepatitis panel shows Hep C positive. Pt was notified and will f/u with GI as outpatient. - Time Spent With Patient 25 - 35 minutes - Subjective Interval history: Patient was seen and examined. Still complaining of mild to moderate abdominal pain. Vital signs stable. Lipase level trended down. Pt has hep C positive, will order US liver to r/o liver disease (like malignancy). Cont current treatment. - Constitutional Vitals: Temp Pulse Resp BP Pulse Ox 98.1 F 77 16 101/65 95 08/04/17 11:31 08/04/17 11:31 08/04/17 11:31 08/04/17 11:31 08/04/17 11:31 General appearance: Present: A&O X 3, pleasant, no acute distress, answers questions appropriately - Head Head exam: Present: atraumatic, normocephalic - Eye Eye exam: Present: PERRL, conjuntiva pink, sclera anicteric Pupils: Present: PERRL - Neck Neck exam general surgery: Present: supple, trachea midline. Absent: lymphadenopathy - Respiratory Respiratory exam: Present: CTAB. Absent: accessory muscle use, rales, rhonchi, wheezes - Cardiovascular Cardiovascular exam: Present: RRR, +S1, +S2. Absent: diastolic murmur, gallop, rubs, systolic murmur - GI/Abdominal GI/Abdominal exam: Present: normal bowel sounds, soft, tenderness (On RUQ), no peritoneal signs. Absent: distended - Extremities Exam Extremities exam: Present: warm, radial pulses palpable and symmetrical. Absent : calf tenderness, cyanotic, pedal edema - Neurological Exam Neurological exam: Present: CN II-XII intact, oriented X3, no focal deficits. Absent: pronater drift, facial droop, speech deficit - Skin Skin exam: Present: dry, intact Internal Medicine: Result - Labs CBC & Chem 7: 08/04/17 06:22 08/04/17 06:22 Labs: Short CBC 08/04/17 Range/Units 06:22 WBC 5.9 (4.3-11.1) K/mcL Hgb 14.3 (12.9-16.9) g/dL Hct 42.6 (37.5-50.1) % Plt Count 170 (140-400) K/mcL Neutrophils # 2.7 (1.6-8.9) K/mcL BMP 08/04/17 06:22 Sodium 139 Potassium 4.3 Chloride 104 Carbon Dioxide 26 BUN 8 Creatinine 1.05 Glucose 88 Calcium 8.8 - ABG Interpretation ABG results: PT/INR, D-dimer PT 11.3 Seconds (9.4-12.1) 08/02/17 03:10 - VTE Documentation of Mechanical Device: Graduated compression elastic hosiery Consult Discharge Plan - Plan Referrals: Vanessa Ramirez CNP [Advanced Practice Nurse] - 08/11/17 11:00 am
[2017-08-05] MEDS: *HR* HYDROmorphone (PF) 1 MG/ML SYRINGE IVP PRN ×3 (01:36→09:24)
[2017-08-05] MEDS: Ondansetron ODT 4 MG TAB.RAPDIS SL PRN ×2 (01:36→09:23)
[2017-08-05] MEDS: *HR* Heparin 5,000 UNIT/ML VIAL SQ SCH (05:54)
[2017-08-05] MEDS: *HR* Promethazine 25 MG/ML VIAL IVP PRN (05:58)
[2017-08-05 07:18] VITALS: BP 110/67
[2017-08-05] MEDS: Nicotine 21 MG PATCH.TD24 TD SCH (09:23)
[2017-08-05] MEDS: Famotidine 20 MG TABLET PO SCH (09:23)
[2017-08-05] MEDS: Sucralfate 1 GM TABLET PO SCH (09:23)
--- NOTE | 2017-08-05 09:29 | Discharge Summary ---
Date of Encounter: 08/05/17 Time of Encounter: 09:00 - Discharge Diagnosis (1) Pancreatitis Priority: Primary Status: Acute Qualifiers: Chronicity: acute Pancreatitis type: idiopathic Acute pancreatitis complication: uninfected necrosis Qualified Code(s): K85.01 - Idiopathic acute pancreatitis with uninfected necrosis (2) Diarrhea Priority: Secondary Status: Chronic Qualifiers: Diarrhea type: unspecified type Qualified Code(s): R19.7 - Diarrhea, unspecified (3) Tobacco abuse Priority: Secondary Status: Chronic (4) COPD (chronic obstructive pulmonary disease) Priority: Secondary Status: Chronic Qualifiers: COPD type: emphysema Emphysema type: unspecified Qualified Code(s): J43.9 - Emphysema, unspecified (5) DVT prophylaxis Priority: Secondary Status: Acute (6) Abdominal pain Priority: Primary Status: Acute Qualifiers: Abdominal location: generalized Qualified Code(s): R10.84 - Generalized abdominal pain (7) Abnormal liver function Priority: Primary Status: Acute (8) Hepatitis C antibody test positive Priority: Primary Status: Acute - Discharge Medications Prescriptions: Famotidine [Pepcid] 20 mg PO BID #60 tablet Nicotine Patch [Nicoderm] 21 mg TD DAILY 14 Days #14 patch.td24 Sucralfate [Carafate] 1 gm PO QIDAC #120 tablet Home Medications: Albuterol Sulfate [Albuterol Inhaler] 2 puff IH Q6H PRN 08/01/17 [History] Lansoprazole [Prevacid] 30 mg PO DAILY 08/01/17 [History] Promethazine [Phenergan] 12.5 mg PO Q8HR PRN 08/01/17 [History] SUMAtriptan succinate [Sumatriptan Succinate] 6 mg SQ AD PRN 08/01/17 [History] Famotidine [Pepcid] 20 mg PO BID #60 tablet 08/05/17 [Rx] Nicotine Patch [Nicoderm] 21 mg TD DAILY 14 Days #14 patch.td24 08/05/17 [Rx] Sucralfate [Carafate] 1 gm PO QIDAC #120 tablet 08/05/17 [Rx] Allergies/Adverse Reactions: 3 Allergy/AdvReac Type Severity Reaction Status Date / Time codeine Allergy Swelling Verified 08/01/17 09:41 of Lip/Tongue/Throat meperidine [From Demerol] Allergy Swelling Verified 08/01/17 09:41 of Lip/Tongue/Throat morphine Allergy Swelling Verified 08/01/17 09:41 of Lip/Tongue/Throat Penicillins [PCN] Allergy Swelling Verified 08/01/17 09:41 of Lip/Tongue/Throat ketorolac [From Toradol] AdvReac Swelling Verified 08/01/17 09:41 of Lip/Tongue/Throat Procedures/tests Complete & Pending: Procedures Performed prior 72 hours Category Date Time Status US abdomen limited [US] Routine Exams 08/04/17 16:00 Completed Date of admission: 08/01/17 12:26 Primary care physician: Adonis Ramirez D.O. Consults: 08/01/17 14:20 Consult to Gastroenterology [CONS] Routine Consulting Provider: Gastroenterology Preeti Reason for Consult: Pancreatitis Call Completed: Yes Discharging clinician: Valentin Bacon Anticipated date of discharge: 08/05/17 - Patient Status Disposition: Home, Self-Care Condition: Good Functional capacity at discharge: independent ambulation Overall status at discharge: patient is back to baseline - Discharge Instructions Follow Up With: Vanessa Ramirez CNP [Advanced Practice Nurse] - 08/11/17 11:00 am Kayla Garrett MD [Partnered Physician] - 08/19/17 - Diet and Activity Activity: increase activity as tolerated Diet: advance to your usual diet, regular diet Hospital course: Mr. Hanks is a 47 year old male admitted for acute pancreatitis and abdominal pain. Patient was treated with IV fluid, nothing by mouth, and pain medication. GI consult was called. Patient had the EGD done and was found gastritis, antacid was recommended by GI. After treatment, patient's abdominal pain has improved. Lipase level gets down to normal. Tolerated diet well. Patient was found Hep C positive We will discharge patient home today and follow up with GI as outpatient. I saw and examined the patient today. He is awake alert, still complaining of mild abdominal pain. No nausea, no vomiting. Vitals are stable. US liver unremarkable. Patient will be discharged home and follow-up with GI as outpatient. Time spent discussing smoking cessation with patient: 3 to 10 minutes - Time Spent with Patient Total time spent providing and/or coordinating discharge services: 25 min Less than 30 minutes - Constitutional Vitals: Temp Pulse Resp BP Pulse Ox 98.9 F 87 14 110/67 98 08/05/17 07:17 08/05/17 07:17 08/05/17 07:17 08/05/17 07:17 08/05/17 07:17 General appearance: Present: A&O X 3, pleasant, no acute distress, answers questions appropriately - Head Head exam: Present: atraumatic, normocephalic - Eye Eye exam: Present: PERRL, conjuntiva pink, sclera anicteric Pupils: Present: PERRL - Neck Neck exam general surgery: Present: supple, trachea midline. Absent: lymphadenopathy - Respiratory Respiratory exam: Present: CTAB. Absent: accessory muscle use, rales, rhonchi, wheezes - Cardiovascular Cardiovascular exam: Present: RRR, +S1, +S2. Absent: diastolic murmur, gallop, rubs, systolic murmur - GI/Abdominal GI/Abdominal exam: Present: normal bowel sounds, soft, no peritoneal signs. Absent: distended, tenderness - Extremities Exam Extremities exam: Present: warm, radial pulses palpable and symmetrical. Absent : calf tenderness, cyanotic, pedal edema - Neurological Exam Neurological exam: Present: CN II-XII intact, oriented X3, no focal deficits. Absent: pronater drift, facial droop, speech deficit - Skin Skin exam: Present: dry, intact - VTE Documentation of Mechanical Device: Graduated compression elastic hosiery
== END 2017-08-05 11:45 | disposition home or self-care (01) | DRG 282 ==
LOC: EMEROO 09:34 → 3ANU 12:26 → UNDODISIN 08-05 10:21
PROVIDERS: ADMIT Internal Medicine; ATTEND Family Medicine
PROC: ENDOEBX (2017-08-02 15:00)

== ENCOUNTER 2017-12-08 18:25 | Inpatient (IN) ==
[2017-12-08 19:32] LABS: Bilirubin,Urine Negative (Negative); Blood,Urine Small (Negative); Clarity,Urine Clear (Clear); Color,Urine Yellow (Yellow); Glucose,Urine (UA) Normal (Normal); Ketones,Urine Negative (Negative); Leukocyte Esterase,Urine Negative (Negative); Nitrite,Urine Negative (Negative); PH,Urine 5.5 pH Units (5.0-8.0); Protein,Urine Negative (Neg-Trace); Specific Gravity,Urine 1.023 (1.010-1.025); Urobilinogen,Urine Normal (Normal)
[2017-12-08 19:34] LABS: Bacteria,Urine None Seen per hpf (None-Few); Hyaline Casts,Urine None Seen per lpf (None-Few); Squamous Epithelial Cell,Urine Moderate per lpf (None-Few); WBC,Urine 0-3 per hpf (0-3)
[2017-12-08] MEDS ORDERED: 0.9 % Sodium Chloride 1,000 ML IVC ONE ×2 (20:16→23:00)
--- NOTE | 2017-12-08 20:18 | Emergency Department Note ---
Disposition Clinical Impression: Acute pancreatitis Qualifiers: Pancreatitis type: unspecified pancreatitis type Acute pancreatitis complication: unspecified Qualified Code(s): K85.90 - Acute pancreatitis without necrosis or infection, unspecified Abdominal pain Qualifiers: Abdominal location: unspecified location Qualified Code(s): R10.9 - Unspecified abdominal pain Disposition: Admitted As Inpatient Condition: Good Time of Disposition: 22:35 Abdominal Pain HPI - General Chief Complaint: ED Abdominal Pain Stated Complaint: abdominal pain Time Seen by Provider: 12/08/17 20:02 Source: patient Mode of arrival: ambulatory Limitations: no limitations Nursing Notes Reviewed: Yes Vital Signs Reviewed: Yes - History of Present Illness HPI Narrative: 47-year-old male history of chronic pancreatitis presents to the emergency department with Don pain nausea vomiting. Symptoms have been going on for past few days. Worse today. Describes a sharp pain in the mid abdomen radiates to the back. He has associated nausea and vomited once out in the waiting room. No recent illness fever, cough, chills, shortness of breath or chest pain. States this feels like his pancreatitis his had the past. Most recent admission was several months ago. He follows with Dr. Garrett. He has been recommend to go to [facility] pancreas specialists which he has seen and had follow up appointment today canceled. Rescheduled appointment next week. History of cholecystectomy and appendectomy. He denies any recent alcohol use. Will work, for pancreatitis given fluids as well as nausea medication in pain medication. States typically Dilaudid works form but due to the shortage we will attempt with fentanyl. Pt Subjective Complaint: abdominal pain Pain Scale: 10 - Related Data Home Medications Medication Instructions Recorded Confirmed Albuterol Sulfate [Albuterol 2 puff IH Q6H PRN 08/01/17 12/08/17 Inhaler] Lansoprazole [Prevacid] 30 mg PO DAILY 08/01/17 12/08/17 SUMAtriptan succinate [Sumatriptan 6 mg SQ AD PRN 08/01/17 12/08/17 Succinate] Beclomethasone Diprop 80mcg [Qvar 1 puff IH BID 12/08/17 12/08/17 80 mcg] Tricia Blair 3 - 4 cap PO AD 12/08/17 Fluticasone Propionate [Flovent 10.61 puff IH BID 12/08/17 12/08/17 Hfa] Promethazine [Phenergan] 25 mg PO Q8HR PRN 12/08/17 12/08/17 Allergies Allergy/AdvReac Type Severity Reaction Status Date / Time codeine Allergy Swelling Verified 11/17/17 19:55 of Lip/Tongue/Throat meperidine [From Demerol] Allergy Swelling Verified 11/17/17 19:55 of Lip/Tongue/Throat morphine Allergy Swelling Verified 11/17/17 19:55 of Lip/Tongue/Throat Penicillins [PCN] Allergy Swelling Verified 11/17/17 19:55 of Lip/Tongue/Throat acetaminophen [From Vicodin] AdvReac Itching Verified 12/08/17 19:12 hydrocodone [From Vicodin] AdvReac Itching Verified 12/08/17 19:12 ketorolac [From Toradol] AdvReac Swelling Verified 11/17/17 19:55 of Lip/Tongue/Throat All systems ED: reviewed and negative except as stated. Review of Systems: As Per HPI Constitutional: Denies: fever, chills Cardiovascular: Denies: chest pain Respiratory: Denies: cough, dyspnea Gastrointestinal: Reports: abdominal pain, nausea, vomiting, diarrhea. Denies: constipation Genitourinary: Denies: urgency, dysuria Musculoskeletal: Denies: back pain, neck pain Integumentary: Denies: rash, abrasion, lesions Neurological: Denies: headache, weakness Abdominal Pain PMH - Past Medical History Medical history: Reports: non-contributory, other Male Surgical History: Reports: appendectomy, cholecystectomy, orthopedic, other , other Psychiatric history: Reports: depression - Social History Smoking status: Current every day smoker Alcohol use: Reports: none Drug use: Reports: marijuana Physical Exam - General Limitations: no limitations General appearance: alert, in no apparent distress - Head Head exam: atraumatic, normocephalic, normal inspection - Eye Eye exam: Present: normal appearance, PERRL, EOMI - ENT ENT exam: normal exam, normal oropharynx, mucous membranes moist - Neck Neck exam: Present: normal inspection, full ROM, trachea midline - Chest Chest inspection: Present: normal inspection, symmetric chest wall rise - Respiratory Respiratory exam: Present: normal lung sounds bilaterally. Absent: respiratory distress, wheezes - Cardiovascular Cardiovascular exam: Present: regular rate, normal rhythm, normal heart sounds - Abdominal Exam Abdominal exam: Present: soft, tenderness, normal bowel sounds. Absent: distention, guarding, rebound, rigidity Abdominal tenderness: Present: RUQ, epigastrium - Extremities Exam Extremities exam: Present: normal inspection, full ROM, normal capillary refill. Absent: tenderness, pedal edema - Back Exam Back exam: Present: normal inspection, full ROM. Absent: tenderness, CVA tenderness (R), CVA tenderness (L) - Neurological Exam Neurological exam: Present: alert, oriented X3 - Psychiatric Psychiatric exam: Present: normal affect, normal mood - Skin Skin exam: Present: warm, dry, intact, normal color. Absent: rash, cyanosis, diaphoresis Course - Reevaluation(s) Reevaluation #1: Patient is mildly tender in the epigastric mid abdomen. Abdomen is otherwise soft and nondistended. No peritoneal signs. His lipase is 344. He has been higher in the past but his most recent one was within normal limits. Suspect this is acute on chronic pancreatitis. He does not have a leukocytosis. No fever. At this time would not perform any additional imaging. Will continue to give him more fluids, symptom control and admit him. Patients in agreement with this plan. We discussed possible transfer to [facility] the patient would prefer admission here if possible. Impression is acute pancreatitis. - Consultations Consultation #1: Spoke with on-call hospitalist huan Wilson to admit for acute on chronic pancreatitis. No further orders at this time Time: 23:36 Vital Signs Temperature 98.2 F 12/08/17 19:09 Pulse Rate 86 12/08/17 19:09 Respiratory Rate 18 12/08/17 19:09 Blood Pressure 136/105 12/08/17 19:09 O2 Sat by Pulse Oximetry 97 12/08/17 19:09 Temperature 98.3 F 12/09/17 00:35 Pulse Rate 71 12/09/17 00:35 Respiratory Rate 15 12/09/17 00:35 Blood Pressure 122/74 12/09/17 00:35 O2 Sat by Pulse Oximetry 97 12/09/17 00:35 Oxygen Delivery Oxygen Delivery Room Air Abdominal Pain - MDM Narrative Medical decision making narrative: Patient was discussed with my attending physician who agrees with ED management and final disposition. They independently evaluated the patient. Please refer to their attestation to this encounter for additional information. This note was generated by Plated voice recognition software and as a result grammatical or spelling errors may occur using this program. - Medical Records Medical records reviewed: Yes I reviewed the patient's medical records. - Lab Data Lab results reviewed: Yes I reviewed the patient's lab results. Result diagrams: 12/08/17 21:30 12/08/17 20:51 Lab Results 12/08/17 12/08/17 12/08/17 Range/Units 18:30 20:51 20:51 WBC (4.3-11.1) K/mcL RBC (4.19-5.50) M/mcL Hgb (12.9-16.9) g/dL Hct (37.5-50.1) % MCV (83.0-100.0) fL MCH (28.0-33.3) pg MCHC (31.6-35.5) g/dL RDW (11.5-14.5) % Plt Count (140-400) K/mcL MPV (9.4-12.4) fL Immature Gran % (0-4) % Seg Neutrophils % % Lymphocytes % % Monocytes % % Eosinophils % % Basophils % % Neutrophils # (1.6-8.9) K/mcL Lymphocytes # (0.6-4.6) K/mcL Monocytes # (0.0-1.3) K/mcL Eosinophils # (0.0-0.6) K/mcL Basophils # (0.0-0.2) K/mcL Sodium 140 (136-145) mEq/L Potassium 3.7 (3.5-5.1) mEq/L Chloride 106 (98-107) mEq/L Carbon Dioxide 27 (23-29) mEq/L BUN 13 (6-20) mg/dL Creatinine 1.20 (0.70-1.30) mg/dL Est GFR ( Amer) > 60 (> 60) Est GFR (Non-Af Amer) > 60 (> 60) BUN/Creatinine Ratio 11 (6-26) Glucose 112 H (70-105) mg/dL Calculated Osmolality 291 (280-300) Calcium 8.9 (8.6-10.3) mg/dL Total Bilirubin 0.5 (0.3-1.0) mg/dL Direct Bilirubin 0.1 (0.0-0.2) mg/dL Indirect Bilirubin 0.4 (0.0-1.2) mg/dL AST 27 (13-39) Units/L ALT 27 (7-52) Units/L Alkaline Phosphatase 87 (34-104) Units/L Serum Total Protein 6.4 (6.4-8.9) g/dL Albumin 3.8 (3.5-5.7) g/dL Globulin 2.6 (2.4-3.5) g/dL Albumin/Globulin Ratio 1.5 (1.1-2.2) Lipase 344 H (11-82) Units/L Urine Color Yellow (Yellow) Urine Clarity Clear (Clear) Urine pH 5.5 (5.0-8.0) pH Units Ur Specific [place] 1.023 (1.010-1.025) Urine Protein Negative (Neg-Trace) mg/dL Urine Glucose (UA) Normal (Normal) mg/dL Urine Ketones Negative (Negative) mg/dL Urine Blood Small H (Negative) Urine Nitrite Negative (Negative) Urine Bilirubin Negative (Negative) Urine Urobilinogen Normal (Normal) mg/dL Ur Leukocyte Esterase Negative (Negative) Urine Microscopic RBC 5-15 H (0-3) per hpf Urine Microscopic WBC 0-3 (0-3) per hpf Ur Squamous Epith Cells Moderate H (None-Few) per lpf Urine Bacteria None Seen (None-Few) per hpf Hyaline Casts None Seen (None-Few) per lpf Ur Culture Indicated? NO (NO) Specimen Rejected Clotted 12/08/17 Range/Units 21:30 WBC 7.5 (4.3-11.1) K/mcL RBC 5.03 (4.19-5.50) M/mcL Hgb 15.8 (12.9-16.9) g/dL Hct 46.7 (37.5-50.1) % MCV 92.8 (83.0-100.0) fL MCH 31.4 (28.0-33.3) pg MCHC 33.8 (31.6-35.5) g/dL RDW 13.4 (11.5-14.5) % Plt Count 226 (140-400) K/mcL MPV 10.0 (9.4-12.4) fL Immature Gran % 0.3 (0-4) % Seg Neutrophils % 49.8 % Lymphocytes % 34.0 % Monocytes % 11.2 % Eosinophils % 3.9 % Basophils % 0.8 % Neutrophils # 3.7 (1.6-8.9) K/mcL Lymphocytes # 2.5 (0.6-4.6) K/mcL Monocytes # 0.8 (0.0-1.3) K/mcL Eosinophils # 0.3 (0.0-0.6) K/mcL Basophils # 0.1 (0.0-0.2) K/mcL Sodium (136-145) mEq/L Potassium (3.5-5.1) mEq/L Chloride (98-107) mEq/L Carbon Dioxide (23-29) mEq/L BUN (6-20) mg/dL Creatinine (0.70-1.30) mg/dL Est GFR ( Amer) (> 60) Est GFR (Non-Af Amer) (> 60) BUN/Creatinine Ratio (6-26) Glucose (70-105) mg/dL Calculated Osmolality (280-300) Calcium (8.6-10.3) mg/dL Total Bilirubin (0.3-1.0) mg/dL Direct Bilirubin (0.0-0.2) mg/dL Indirect Bilirubin (0.0-1.2) mg/dL AST (13-39) Units/L ALT (7-52) Units/L Alkaline Phosphatase (34-104) Units/L Serum Total Protein (6.4-8.9) g/dL Albumin (3.5-5.7) g/dL Globulin (2.4-3.5) g/dL Albumin/Globulin Ratio (1.1-2.2) Lipase (11-82) Units/L Urine Color (Yellow) Urine Clarity (Clear) Urine pH (5.0-8.0) pH Units Ur Specific [place] (1.010-1.025) Urine Protein (Neg-Trace) mg/dL Urine Glucose (UA) (Normal) mg/dL Urine Ketones (Negative) mg/dL Urine Blood (Negative) Urine Nitrite (Negative) Urine Bilirubin (Negative) Urine Urobilinogen (Normal) mg/dL Ur Leukocyte Esterase (Negative) Urine Microscopic RBC (0-3) per hpf Urine Microscopic WBC (0-3) per hpf Ur Squamous Epith Cells (None-Few) per lpf Urine Bacteria (None-Few) per hpf Hyaline Casts (None-Few) per lpf Ur Culture Indicated? (NO) Specimen Rejected
[2017-12-08 21:37] LABS: Alanine Aminotransferase 27 Units/L (7-52); Albumin 3.8 g/dL (3.5-5.7); Albumin/Globulin Ratio 1.5 (1.1-2.2); Alkaline Phosphatase 87 Units/L (34-104); Aspartate Amino Transferase 27 Units/L (13-39); BUN/Creatinine Ratio 11 (6-26); Bilirubin,Direct 0.1 mg/dL (0.0-0.2); Bilirubin,Indirect 0.4 mg/dL (0.0-1.2); Bilirubin,Total 0.5 mg/dL (0.3-1.0); Blood Urea Nitrogen 13 mg/dL (6-20); Calcium 8.9 mg/dL (8.6-10.3); Carbon Dioxide 27 mEq/L (23-29); Chloride 106 mEq/L (98-107); Globulin 2.6 g/dL (2.4-3.5); Glucose 112 mg/dL (70-105); Lipase 344 Units/L (11-82); Osmolality,Calculated 291 (280-300); Potassium 3.7 mEq/L (3.5-5.1); Sodium 140 mEq/L (136-145); Total Protein 6.4 g/dL (6.4-8.9); eGFR For African Americans > 60 (> 60); eGFR For Non-African Americans > 60 (> 60)
[2017-12-08] MEDS ORDERED: *HR* FentaNYL (PF) 100 MCG/2 ML VIAL IVP ONE (21:45)
[2017-12-08] MEDS ORDERED: *HR* Promethazine 25 MG/ML VIAL IVP ONE (21:47)
[2017-12-08 21:57] LABS: Basophils # 0.1 K/mcL (0.0-0.2); Basophils % 0.8 %; Eosinophils # 0.3 K/mcL (0.0-0.6); Eosinophils % 3.9 %; Hematocrit 46.7 % (37.5-50.1); Hemoglobin 15.8 g/dL (12.9-16.9); Immature Granulocytes % 0.3 % (0-4); Lymphocytes # 2.5 K/mcL (0.6-4.6); Mean Corpuscular HGB Conc 33.8 g/dL (31.6-35.5); Mean Corpuscular Hemoglobin 31.4 pg (28.0-33.3); Mean Corpuscular Volume 92.8 fL (83.0-100.0); Monocytes # 0.8 K/mcL (0.0-1.3); Monocytes % 11.2 %; Neutrophils # 3.7 K/mcL (1.6-8.9); Platelet Count 226 K/mcL (140-400); Red Blood Count 5.03 M/mcL (4.19-5.50); Red Cell Distribution Width 13.4 % (11.5-14.5); Segmented Neutrophils % 49.8 %
--- NOTE | 2017-12-08 22:44 | Emergency Department Note ---
Disposition Clinical Impression: Acute pancreatitis Qualifiers: Pancreatitis type: unspecified pancreatitis type Acute pancreatitis complication: unspecified Qualified Code(s): K85.90 - Acute pancreatitis without necrosis or infection, unspecified Abdominal pain Qualifiers: Abdominal location: unspecified location Qualified Code(s): R10.9 - Unspecified abdominal pain Disposition: Admitted As Inpatient Condition: Good Referrals: Vanessa Ramirez CNP [Primary Care Provider] - Forms: ED Satisfaction Letter, Work/School Release General Adult HPI - General Chief complaint: ED Abdominal Pain Stated complaint: abdominal pain Time Seen by Provider: 12/08/17 20:02 Source: patient Mode of arrival: ambulatory Limitations: no limitations Nursing Notes Reviewed: Yes Vital Signs Reviewed: Yes - History of Present Illness Pain Scale: 10 - Related Data Home Medications Medication Instructions Recorded Confirmed Albuterol Sulfate [Albuterol 2 puff IH Q6H PRN 08/01/17 12/08/17 Inhaler] Lansoprazole [Prevacid] 30 mg PO DAILY 08/01/17 12/08/17 SUMAtriptan succinate [Sumatriptan 6 mg SQ AD PRN 08/01/17 12/08/17 Succinate] Beclomethasone Diprop 80mcg [Qvar 1 puff IH BID 12/08/17 12/08/17 80 mcg] Creon Dr 3 - 4 cap PO AD 12/08/17 Fluticasone Propionate [Flovent 10.61 puff IH BID 12/08/17 12/08/17 Hfa] Promethazine [Phenergan] 25 mg PO Q8HR PRN 12/08/17 12/08/17 Allergies Allergy/AdvReac Type Severity Reaction Status Date / Time codeine Allergy Swelling Verified 11/17/17 19:55 of Lip/Tongue/Throat meperidine [From Demerol] Allergy Swelling Verified 11/17/17 19:55 of Lip/Tongue/Throat morphine Allergy Swelling Verified 11/17/17 19:55 of Lip/Tongue/Throat Penicillins [PCN] Allergy Swelling Verified 11/17/17 19:55 of Lip/Tongue/Throat acetaminophen [From Vicodin] AdvReac Itching Verified 12/08/17 19:12 hydrocodone [From Vicodin] AdvReac Itching Verified 12/08/17 19:12 ketorolac [From Toradol] AdvReac Swelling Verified 11/17/17 19:55 of Lip/Tongue/Throat Constitutional: Denies: fever, chills Cardiovascular: Denies: chest pain Respiratory: Denies: cough, dyspnea Gastrointestinal: Reports: abdominal pain, nausea, vomiting, diarrhea. Denies: constipation Genitourinary: Denies: urgency, dysuria Musculoskeletal: Denies: back pain, neck pain Integumentary: Denies: rash, abrasion, lesions Neurological: Denies: headache, weakness Past Medical History - Past Medical History Medical history: Reports: non-contributory, other Surgical history: Reports: appendectomy, cholecystectomy, orthopedic, other, other Psychiatric history: Reports: depression - Social History Smoking Status: Current every day smoker Smokeless Tobacco Status: No Alcohol use: Reports: none Drug use: Reports: marijuana Physical Exam - General Limitations: no limitations General appearance: alert, in no apparent distress Course Vital Signs Temperature 98.2 F 12/08/17 19:09 Pulse Rate 86 12/08/17 19:09 Respiratory Rate 18 12/08/17 19:09 Blood Pressure 136/105 12/08/17 19:09 O2 Sat by Pulse Oximetry 97 12/08/17 19:09 Temperature 98.2 F 12/08/17 19:09 Pulse Rate 86 12/08/17 19:09 Respiratory Rate 18 12/08/17 19:09 Blood Pressure 136/105 12/08/17 19:09 O2 Sat by Pulse Oximetry 97 12/08/17 19:09 Oxygen Delivery Oxygen Delivery Room Air Medical Decision Making - Lab Data Result diagrams: 12/08/17 21:30 12/08/17 20:51 Lab Results 12/08/17 12/08/17 12/08/17 Range/Units 18:30 20:51 20:51 WBC (4.3-11.1) K/mcL RBC (4.19-5.50) M/mcL Hgb (12.9-16.9) g/dL Hct (37.5-50.1) % MCV (83.0-100.0) fL MCH (28.0-33.3) pg MCHC (31.6-35.5) g/dL RDW (11.5-14.5) % Plt Count (140-400) K/mcL MPV (9.4-12.4) fL Immature Gran % (0-4) % Seg Neutrophils % % Lymphocytes % % Monocytes % % Eosinophils % % Basophils % % Neutrophils # (1.6-8.9) K/mcL Lymphocytes # (0.6-4.6) K/mcL Monocytes # (0.0-1.3) K/mcL Eosinophils # (0.0-0.6) K/mcL Basophils # (0.0-0.2) K/mcL Sodium 140 (136-145) mEq/L Potassium 3.7 (3.5-5.1) mEq/L Chloride 106 (98-107) mEq/L Carbon Dioxide 27 (23-29) mEq/L BUN 13 (6-20) mg/dL Creatinine 1.20 (0.70-1.30) mg/dL Est GFR ( Amer) > 60 (> 60) Est GFR (Non-Af Amer) > 60 (> 60) BUN/Creatinine Ratio 11 (6-26) Glucose 112 H (70-105) mg/dL Calculated Osmolality 291 (280-300) Calcium 8.9 (8.6-10.3) mg/dL Total Bilirubin 0.5 (0.3-1.0) mg/dL Direct Bilirubin 0.1 (0.0-0.2) mg/dL Indirect Bilirubin 0.4 (0.0-1.2) mg/dL AST 27 (13-39) Units/L ALT 27 (7-52) Units/L Alkaline Phosphatase 87 (34-104) Units/L Serum Total Protein 6.4 (6.4-8.9) g/dL Albumin 3.8 (3.5-5.7) g/dL Globulin 2.6 (2.4-3.5) g/dL Albumin/Globulin Ratio 1.5 (1.1-2.2) Lipase 344 H (11-82) Units/L Urine Color Yellow (Yellow) Urine Clarity Clear (Clear) Urine pH 5.5 (5.0-8.0) pH Units Ur Specific [place] 1.023 (1.010-1.025) Urine Protein Negative (Neg-Trace) mg/dL Urine Glucose (UA) Normal (Normal) mg/dL Urine Ketones Negative (Negative) mg/dL Urine Blood Small H (Negative) Urine Nitrite Negative (Negative) Urine Bilirubin Negative (Negative) Urine Urobilinogen Normal (Normal) mg/dL Ur Leukocyte Esterase Negative (Negative) Urine Microscopic RBC 5-15 H (0-3) per hpf Urine Microscopic WBC 0-3 (0-3) per hpf Ur Squamous Epith Cells Moderate H (None-Few) per lpf Urine Bacteria None Seen (None-Few) per hpf Hyaline Casts None Seen (None-Few) per lpf Ur Culture Indicated? NO (NO) Specimen Rejected Clotted 12/08/17 Range/Units 21:30 WBC 7.5 (4.3-11.1) K/mcL RBC 5.03 (4.19-5.50) M/mcL Hgb 15.8 (12.9-16.9) g/dL Hct 46.7 (37.5-50.1) % MCV 92.8 (83.0-100.0) fL MCH 31.4 (28.0-33.3) pg MCHC 33.8 (31.6-35.5) g/dL RDW 13.4 (11.5-14.5) % Plt Count 226 (140-400) K/mcL MPV 10.0 (9.4-12.4) fL Immature Gran % 0.3 (0-4) % Seg Neutrophils % 49.8 % Lymphocytes % 34.0 % Monocytes % 11.2 % Eosinophils % 3.9 % Basophils % 0.8 % Neutrophils # 3.7 (1.6-8.9) K/mcL Lymphocytes # 2.5 (0.6-4.6) K/mcL Monocytes # 0.8 (0.0-1.3) K/mcL Eosinophils # 0.3 (0.0-0.6) K/mcL Basophils # 0.1 (0.0-0.2) K/mcL Sodium (136-145) mEq/L Potassium (3.5-5.1) mEq/L Chloride (98-107) mEq/L Carbon Dioxide (23-29) mEq/L BUN (6-20) mg/dL Creatinine (0.70-1.30) mg/dL Est GFR ( Amer) (> 60) Est GFR (Non-Af Amer) (> 60) BUN/Creatinine Ratio (6-26) Glucose (70-105) mg/dL Calculated Osmolality (280-300) Calcium (8.6-10.3) mg/dL Total Bilirubin (0.3-1.0) mg/dL Direct Bilirubin (0.0-0.2) mg/dL Indirect Bilirubin (0.0-1.2) mg/dL AST (13-39) Units/L ALT (7-52) Units/L Alkaline Phosphatase (34-104) Units/L Serum Total Protein (6.4-8.9) g/dL Albumin (3.5-5.7) g/dL Globulin (2.4-3.5) g/dL Albumin/Globulin Ratio (1.1-2.2) Lipase (11-82) Units/L Urine Color (Yellow) Urine Clarity (Clear) Urine pH (5.0-8.0) pH Units Ur Specific [place] (1.010-1.025) Urine Protein (Neg-Trace) mg/dL Urine Glucose (UA) (Normal) mg/dL Urine Ketones (Negative) mg/dL Urine Blood (Negative) Urine Nitrite (Negative) Urine Bilirubin (Negative) Urine Urobilinogen (Normal) mg/dL Ur Leukocyte Esterase (Negative) Urine Microscopic RBC (0-3) per hpf Urine Microscopic WBC (0-3) per hpf Ur Squamous Epith Cells (None-Few) per lpf Urine Bacteria (None-Few) per hpf Hyaline Casts (None-Few) per lpf Ur Culture Indicated? (NO) Specimen Rejected Attestation Statement - Attestation Attestation: I, Miki Luna MD, personally evaluated this patient and discussed their management with the resident physician. I reviewed the resident's note and agree with the documented findings, medical decision making, and plan of care. 47-year-old male presents to the emergency department with a complaint of upper abdominal pain for the past several days which became acutely worse today with nausea and vomiting. No fever. Patient has a history of chronic recurrent pancreatitis and states this feels the same as his usual flareups. He has been admitted to the hospital multiple times for this problem. He is followed by gastroenterology. Etiology of the pancreatitis is unknown. On examination patient is a well-developed well-nourished well-appearing male in no acute distress. He is alert and oriented 3. There is no cyanosis or diaphoresis. Breath sounds are clear and equal bilaterally. Heart regular rate and rhythm. Abdomen is soft with moderate mid upper abdominal tenderness with mild guarding. No CVA tenderness. No organomegaly or masses. No tympany or distention. Bowel sounds decreased. Labs reviewed. Lipase 344. The hospitalist, Dr. Paredes, was consulted and accepted admission of the patient.
[2017-12-08] MEDS ORDERED: *HR* Nalbuphine 10 MG/ML AMPUL IV ONE (23:15)
[2017-12-09] MEDS ORDERED: Naloxone 0.4 MG/ML INJ IVP PRN (02:40)
[2017-12-09] MEDS ORDERED: Ondansetron ODT 4 MG TAB.RAPDIS SL PRN (02:40)
[2017-12-09] MEDS ORDERED: OXYCODONE Oral CONC 10 MG/0.5 ML ORAL.SYG SL PRN (02:40)
[2017-12-09] MEDS ORDERED: Ipratropium/Albuterol Neb 3 ML IH PRN (02:43)
[2017-12-09] MEDS ORDERED: 0.9 % Sodium Chloride 1,000 ML IVC SCH (02:45)
--- NOTE | 2017-12-09 02:51 | Internal Med History&Physical ---
<Vanessa Almonte H - Last Filed: 12/09/17 02:36> Date of Encounter: 12/09/17 Time of Encounter: 02:36 Internal Medicine - H&P: HPI Chief complaint: abdominal pain Admitted From: Emergency Dept Plans for Post Hospital Care: Home History of present illness: Mr. Hanks is a 47 year old male with past medical history hepatitis C, COPD, and recurrent bouts of acute pancreatitis in setting of likely idiopathic chronic pancreatitis. Patient presented to [facility] on 07/2018 with chief complaints of abdominal pain, nausea, vomiting. He stated his pain began earlier in the day. Per patient, he describes the pain as sharp and similar to previous episodes of pancreatitis. He follows at [facility] with a pancreas specialist. He was scheduled for an appointment with this specialist today, but it was cancelled. He has underwent testing including EUS here at [facility]. Workup largely suggest idiopathic chronic pancreatitis. Patient currently is on Creon as an outpatient. He reports diarrhea. He denies shortness of breath, chest pain, palpitations, or diaphoresis. He denies dysuria, hematuria, melena, hematochezia, or hematemesis. During examination, patient was resting comfortably. He was alert , oriented 3, and able to answers all questions appropriately. Past Med Surg Social Fam HX - Past Medical History Attestation: Yes The following information was validated with the patient. Source: unable to obtain Medical history: COPD, other (hepatitis C) Psychiatric history: depression - Past Surgical History Surgical History: appendectomy, cholecystectomy, orthopedic, other, other - Social History Smoking Status: Current every day smoker Packs per day: 1 Smokeless Tobacco Status: No Alcohol use: none Drug use: marijuana - Family History Mother Living Status: Hx Family Respiratory Disorders: Yes (asthma, emphysema, copd) Father Adopted: No Living Status: Hx Family Endocrine Disorder: Yes (Diabetes Mellitus) Internal Medicine - H&P: Meds Albuterol Sulfate [Albuterol Inhaler] 2 puff IH Q6H PRN 08/01/17 [History] Lansoprazole [Prevacid] 30 mg PO DAILY 08/01/17 [History] SUMAtriptan succinate [Sumatriptan Succinate] 6 mg SQ AD PRN 08/01/17 [History] Beclomethasone Diprop 80mcg [Qvar 80 mcg] 1 puff IH BID 12/08/17 [History] Tricia Blair 3 - 4 cap PO AD 12/08/17 [History] Fluticasone Propionate [Flovent Hfa] 10.61 puff IH BID 12/08/17 [History] Promethazine [Phenergan] 25 mg PO Q8HR PRN 12/08/17 [History] 3 Allergy/AdvReac Type Severity Reaction Status Date / Time codeine Allergy Swelling Verified 11/17/17 19:55 of Lip/Tongue/Throat meperidine [From Demerol] Allergy Swelling Verified 11/17/17 19:55 of Lip/Tongue/Throat morphine Allergy Swelling Verified 11/17/17 19:55 of Lip/Tongue/Throat Penicillins [PCN] Allergy Swelling Verified 11/17/17 19:55 of Lip/Tongue/Throat acetaminophen [From Vicodin] AdvReac Itching Verified 12/08/17 19:12 hydrocodone [From Vicodin] AdvReac Itching Verified 12/08/17 19:12 ketorolac [From Toradol] AdvReac Swelling Verified 11/17/17 19:55 of Lip/Tongue/Throat All Systems PM: A 10-system review of systems was performed and is negative for pertinent findings except as documented above in the HPI. - Constitutional Constitutional: no anorexia, no fever(s), no lethargy, no weight gain, no weight loss - EENT Nose, mouth and throat: no sinus pain, no sinus pressure - Cardiovascular Cardiovascular ROS IM: no chest pain, no claudication, no diaphoresis, no dyspnea, no dyspnea on exertion, no edema, no lightheadedness, no orthopnea, no palpitations, no paroxysmal nocturnal dyspnea - Respiratory Respiratory: no dyspnea on exertion, no chest congestion - Gastrointestinal Gastrointestinal: nausea, vomiting, no coffee ground emesis, no constipation, no diarrhea, no hematemesis, no hematochezia, no loose stools, no melena - Genitourinary Genitourinary ROS male: no dysuria, no hematuria, no urinary frequency, no urinary hesitancy, no urinary incontinence - Neurological Neurological ROS: no abnormal gait, no confusion, no paresthesias - Constitutional Vitals: Temp Pulse Resp BP Pulse Ox 98.3 F 71 15 122/74 97 12/09/17 00:35 12/09/17 00:35 04/13/18 00:35 12/09/17 00:35 12/09/17 00:35 General appearance: Present: A&O X 3, pleasant, no acute distress, obese, answers questions appropriately - Head Head exam: Present: atraumatic, normocephalic - Eye Eye exam: Present: conjuntiva pink, sclera anicteric - Neck Neck exam general surgery: Present: supple, trachea midline. Absent: lymphadenopathy - Respiratory Respiratory exam: Present: wheezes. Absent: accessory muscle use, rales, rhonchi - Cardiovascular Cardiovascular exam: Present: RRR, +S1, +S2. Absent: diastolic murmur, gallop, rubs, systolic murmur - GI/Abdominal GI/Abdominal exam: Present: normal bowel sounds, soft, tenderness (mild upper mid abdominal tenderness), no peritoneal signs. Absent: distended, firm, guarding Additional comments: Patient with extensive tattoos - Extremities Exam Extremities exam: Present: warm, radial pulses palpable and symmetrical. Absent : calf tenderness, cyanotic, pedal edema - Neurological Exam Neurological exam: Present: CN II-XII intact, oriented X3, no focal deficits. Absent: pronater drift, facial droop, speech deficit - Skin Skin exam: Present: dry, intact, warm. Absent: pallor Internal Med - H&P Results - Labs CBC & Chem 7: 12/08/17 21:30 12/08/17 20:51 - Assessment and plan (1) Pancreatitis Current Visit: No Status: Acute Assessment and plan: 47 yo male with HepC, COPD, and acute flare of pancreatitis in setting of chronic pancreatitis. -Patient known to GI service as an outpatient and inpatient here at [facility]. Follow with pancreatic specialists at [facility] -Creon not verfied per pharmacy- hold for now. -NPO -SL oxycodone pain control -IVF -AM lipase -SL anti-emetics Qualifiers: Chronicity: acute Pancreatitis type: idiopathic Acute pancreatitis complication: uninfected necrosis Qualified Code(s): K85.01 - Idiopathic acute pancreatitis with uninfected necrosis (2) COPD (chronic obstructive pulmonary disease) Current Visit: No Status: Chronic Assessment and plan: Patient wheezy on physical exam. -Continue home qvar -Add duonebs scheduled q6hr, and PRN q4hr Qualifiers: COPD type: emphysema Emphysema type: unspecified Qualified Code(s): J43.9 - Emphysema, unspecified - Time Spent With Patient Total time spent is greater than 50% in coordination of care (as documented) at patient's floor/unit and/or counseling patient: <Valentin Bacon - Last Filed: 12/09/17 04:44> Date of Encounter: 12/09/17 Internal Medicine - H&P: HPI History of present illness: Mr. Hanks is a 47 year old male All Systems PM: A 10-system review of systems was performed and is negative for pertinent findings except as documented above in the HPI. - Constitutional Vitals: Temp Pulse Resp BP Pulse Ox 98.3 F 71 14 122/74 98 12/09/17 00:35 12/09/17 00:35 12/09/17 04:28 12/09/17 00:35 12/09/17 04:28 Internal Med - H&P Results - Labs CBC & Chem 7: 12/08/17 21:30 12/08/17 20:51 - Attending Attestation I have seen and examined this patient independently. I have discussed with resident physician Dr. Singh regarding the management plan. Agree with the documentation. - Assessment and plan (1) Pancreatitis Current Visit: No Status: Acute Qualifiers: Chronicity: acute Pancreatitis type: idiopathic Acute pancreatitis complication: uninfected necrosis Qualified Code(s): K85.01 - Idiopathic acute pancreatitis with uninfected necrosis (2) COPD (chronic obstructive pulmonary disease) Current Visit: No Status: Chronic Qualifiers: COPD type: emphysema Emphysema type: unspecified Qualified Code(s): J43.9 - Emphysema, unspecified - Time Spent With Patient Total time spent is greater than 50% in coordination of care (as documented) at patient's floor/unit and/or counseling patient:
[2017-12-09] MEDS: OXYCODONE Oral CONC 10 MG/0.5 ML ORAL.SYG SL PRN ×4 (04:02→17:40)
[2017-12-09] MEDS: Ipratropium/Albuterol Neb 3 ML IH SCH ×4 (04:26→21:58)
[2017-12-09 06:52] LABS: BUN/Creatinine Ratio 12 (6-26); Blood Urea Nitrogen 13 mg/dL (6-20); Calcium 8.6 mg/dL (8.6-10.3); Carbon Dioxide 24 mEq/L (23-29); Chloride 112 mEq/L (98-107); Glucose 100 mg/dL (70-105); Lipase 103 Units/L (11-82); Osmolality,Calculated 292 (280-300); Potassium 4.7 mEq/L (3.5-5.1); Sodium 141 mEq/L (136-145); eGFR For African Americans > 60 (> 60); eGFR For Non-African Americans > 60 (> 60)
[2017-12-09] MEDS: Beclomethasone 80mcg MDI IH SCH ×2 (09:39→21:58)
--- NOTE | 2017-12-09 10:11 | Pulmonology Progress Note ---
Date of Encounter: 12/09/17 Time of Encounter: 10:03 Assessment and Plan (1) Acute pancreatitis Current Visit: Yes Status: Acute Per history, no clear etiology. Patient has had recurrent episodes despite being asked/P cholecystectomy, without known history of hypertriglyceridemia, and no history of excessive alcohol intake. Last triglyceride level in July 2017 was within normal limits. Patient is followed with Dr. Garrett in the past and has had arranged referral for pancreatic specialist in [place], but has not made any appointments thus far. -- continue analgesia as needed with oxycodone PRN -- continue IVF at maintenance rate of 140 mL/hr lactated ringers; stop date tomorrow a.m. in pursuit of transition to PO intake -- control nausea with Phenergan as patient states Zofran has not helped -- may attempt to advance clear liquids this afternoon as able; otherwise advanced diet as able -- vitals per protocol; expand workup as needed if clinical status deteriorates -- CBC & BMP in AM Qualifiers: Pancreatitis type: unspecified pancreatitis type Acute pancreatitis complication: unspecified Qualified Code(s): K85.90 - Acute pancreatitis without necrosis or infection, unspecified (2) Hyperchloremia Current Visit: Yes Status: Acute 112 this a.m., mildly elevated -- Changing IVF to LR at 140mL/hr (3) COPD (chronic obstructive pulmonary disease) Current Visit: No Status: Chronic Chronic smoking history previously 3 packs per day, currently one half packs per day. Patient uses inhaler home, but is not oxygen or BiPAP dependent. Patient is without any acute respiratory changes or signs respiratory infection including fever, productive cough, or acute dyspnea. -- Continue duo nebs for now -- further workup if respiratory status decompensates in any way Qualifiers: COPD type: emphysema Emphysema type: unspecified Qualified Code(s): J43.9 - Emphysema, unspecified (4) Microhematuria Current Visit: Yes Status: Acute History of nephro-ureterolithiasis and ureteral stenting -- last episode in 2014. Patient states current pain not similar to previous episodes. Patient not having any dysuria, gross hematuria, or flank pain. May pursue further workup if pain/course more closely indicative of ureterolithiasis. -- Consider repeat UA and/or CT of the abdomen as needed. (5) Diarrhea Current Visit: No Status: Chronic No gross blood or melena per patient. Qualifiers: Diarrhea type: unspecified type Qualified Code(s): R19.7 - Diarrhea, unspecified (6) Tobacco abuse Current Visit: No Status: Chronic Half pack a day smoker down from history of 3 packs per day; requests nicotine patch. Counseled smoking cessation which patient states he is actively attempting. (7) DVT prophylaxis Current Visit: No Status: Acute Subcutaneous heparin Subjective Principal diagnosis: Acute Pancreatitis with h/o chronic recurrent pancreatitis Interval history: Clarified history with patient; patient does have history of recurrent pancreatitis last episode in July 2017, status post cholecystectomy in 2000 , no known history of hypertriglyceridemia, and no current or remote alcohol use and certainly never to any excess. Patient is experienced constant stabbing epigastric pain for the last 3 days to have gradual onset; has not had any radiating, migratory, or intermittent patterns. Pain is been associated with nausea, vomiting, diarrhea, but patient denies any fevers, chills, sweats, diaphoresis, chest pain, melena, hematochezia, dysuria, or hematuria. Other surgical history significant for appendectomy also in 2000. This AM, patient continues to have pain, however is restful on initial encounter. Patient states pain is tolerable at this time and has not changed in quality, character, or location. Patient tells me that this pain is perfectly consistent with previous episodes of pancreatitis. Patient cites history of ureteral stones, but says this pain is not anything like that. Patient did have positive microhematuria on UA, but no imaging as follow-up. Patient denies any gross hematuria. Patient is slightly hyperchloremic on AM labs, but otherwise normal electrolytes and improving lipase. Continue NPO status for now, switching to lactated ringer ringers at 140 mL per hour, and maintaining all other action plans. Will advance diet as patient's pain improves. Do not anticipate discharge today; possible discharge tomorrow or day after. Objective PUL Vital signs: Last Vital Signs Temp 98.7 F 12/09/17 05:28 Pulse 70 12/09/17 05:28 Resp 14 12/09/17 09:42 BP 112/73 12/09/17 05:28 Pulse Ox 92 12/09/17 09:42 CONSTITUTIONAL: Alert and oriented X3, well-nourished, well appearing, in no apparent distress HEAD: Normocephalic; atraumatic. EYES: PERRL, no scleral icterus, no drainage, no conjunctival injection NOSE: just finishing IH tx with mask in place, no rhinorrhea Oropharynx: pink/moist, no tonsillar edema/erythema/exudates RESP: NRD without use of accessory musculature, does have diffuse expiratory wheezes, but denies acute dyspnea CARD: Regular rhythm, without murmurs, rubs, or gallop ABD: grossly normal, soft, non-distended, non-rigid; does have tenderness at periumbilical and epigastric region. No CVA tenderness. No peritoneal signs. SKIN: normal appearance, no pallor/diaphoresis,mottling,jaundice,cyanosis EXT: DP/Rad pulses 2+ and symmetrical; no lateralizing edema; no other lesions seen PSYCH: appropriate mood/affect Results - Laboratory Findings CBC and BMP: 12/08/17 21:30 12/09/17 06:11 Abnormal lab findings: Abnormal lab results Chloride 112 mEq/L (98-107) H 12/09/17 06:11 Lipase 103 Units/L (11-82) H 12/09/17 06:11 Urine Blood Small (Negative) H 12/08/17 18:30 Urine Microscopic RBC 5-15 per hpf (0-3) H 12/08/17 18:30 Ur Squamous Epith Cells Moderate per lpf (None-Few) H 12/08/17 18:30 - Clinical Findings Intake & Output: Intake & Output 12/08/17 12/09/17 12/09/17 23:59 07:59 15:59 Intake Total 0 / 0 0 / 0 Output Total 325 / 325 Balance -325 / -325 0 / 0 Weight 110.677 kg Consult Discharge Plan - Plan Referrals: Vanessa Ramirez, [facility]LLOW [Primary Care Provider] -
[2017-12-09] MEDS ORDERED: Ringers Solution, Lactated 1,000 ML IVC SCH (10:45)
[2017-12-09] MEDS: Nicotine 14 MG PATCH.TD24 TD SCH (11:26)
[2017-12-09] MEDS: *HR* Promethazine 25 MG/ML VIAL IVP PRN ×2 (11:34→19:59)
--- NOTE | 2017-12-09 11:57 | Internal Med Progress Note ---
<Guillermo Truong - Last Filed: 12/09/17 11:54> Date of Encounter: 12/09/17 Time of Encounter: 10:03 - Assessment and plan (1) Acute pancreatitis Current Visit: Yes Status: Acute Assessment and plan: Per history, no clear etiology. Patient has had recurrent episodes despite being asked/P cholecystectomy, without known history of hypertriglyceridemia, and no history of excessive alcohol intake. Last triglyceride level in July 2017 was within normal limits. Patient is followed with Dr. Garrett in the past and has had arranged referral for pancreatic specialist in [place], but has not made any appointments thus far. -- continue analgesia as needed with oxycodone PRN -- continue IVF at maintenance rate of 200 mL/hr lactated ringers; stop date tomorrow a.m. in pursuit of transition to PO intake -- control nausea with Phenergan as patient states Zofran has not helped -- may attempt to advance clear liquids this afternoon as able; otherwise advanced diet as able -- vitals per protocol; expand workup as needed if clinical status deteriorates -- CBC & BMP in AM Qualifiers: Pancreatitis type: unspecified pancreatitis type Acute pancreatitis complication: unspecified Qualified Code(s): K85.90 - Acute pancreatitis without necrosis or infection, unspecified (2) COPD (chronic obstructive pulmonary disease) Current Visit: No Status: Chronic Assessment and plan: Patient wheezy on physical exam. -Continue home qvar -Add duonebs scheduled q6hr, and PRN q4hr Qualifiers: COPD type: emphysema Emphysema type: unspecified Qualified Code(s): J43.9 - Emphysema, unspecified (3) Microhematuria Current Visit: Yes Status: Acute Assessment and plan: History of nephro-ureterolithiasis and ureteral stenting -- last episode in 2014. Patient states current pain not similar to previous episodes. Patient not having any dysuria, gross hematuria, or flank pain. May pursue further workup if pain/course more closely indicative of ureterolithiasis. -- Consider repeat UA and/or CT of the abdomen as needed. (4) Diarrhea Current Visit: No Status: Chronic Qualifiers: Diarrhea type: unspecified type Qualified Code(s): R19.7 - Diarrhea, unspecified (5) Tobacco abuse Current Visit: No Status: Chronic Assessment and plan: Half pack a day smoker down from history of 3 packs per day; requests nicotine patch. Counseled smoking cessation which patient states he is actively attempting. (6) DVT prophylaxis Current Visit: Yes Status: Acute Assessment and plan: subcutaneous heparin (7) Hyperchloremia Current Visit: Yes Status: Acute Assessment and plan: 112 this a.m., mildly elevated -- Changing IVF to LR at 200mL/hr - Time Spent With Patient Total time spent is greater than 50% in coordination of care (as documented) at patient's floor/unit and/or counseling patient: - Subjective Interval history: Clarified history with patient; patient does have history of recurrent pancreatitis last episode in July 2017, status post cholecystectomy in 2000 , no known history of hypertriglyceridemia, and no current or remote alcohol use and certainly never to any excess. Patient is experienced constant stabbing epigastric pain for the last 3 days to have gradual onset; has not had any radiating, migratory, or intermittent patterns. Pain is been associated with nausea, vomiting, diarrhea, but patient denies any fevers, chills, sweats, diaphoresis, chest pain, melena, hematochezia, dysuria, or hematuria. Other surgical history significant for appendectomy also in 2000. This AM, patient continues to have pain, however is restful on initial encounter. Patient states pain is tolerable at this time and has not changed in quality, character, or location. Patient tells me that this pain is perfectly consistent with previous episodes of pancreatitis. Patient cites history of ureteral stones, but says this pain is not anything like that. Patient did have positive microhematuria on UA, but no imaging as follow-up. Patient denies any gross hematuria. Patient is slightly hyperchloremic on AM labs, but otherwise normal electrolytes and improving lipase. Continue NPO status for now, switching to lactated ringer ringers at 140 mL per hour, and maintaining all other action plans. Will advance diet as patient's pain improves. Do not anticipate discharge today; possible discharge tomorrow or day after. - Constitutional Vitals: Temp Pulse Resp BP Pulse Ox 97.6 F 80 16 106/68 98 12/09/17 10:59 12/09/17 10:59 12/09/17 10:59 12/09/17 10:59 12/09/17 10:59 General appearance: Present: A&O X 3, pleasant, no acute distress, obese, answers questions appropriately Exam: CONSTITUTIONAL: Alert and oriented X3, well-nourished, well appearing, in no apparent distress HEAD: Normocephalic; atraumatic. EYES: PERRL, no scleral icterus, no drainage, no conjunctival injection NOSE: just finishing IH tx with mask in place, no rhinorrhea Oropharynx: pink/moist, no tonsillar edema/erythema/exudates RESP: NRD without use of accessory musculature, does have diffuse expiratory wheezes, but denies acute dyspnea CARD: Regular rhythm, without murmurs, rubs, or gallop ABD: grossly normal, soft, non-distended, non-rigid; does have tenderness at periumbilical and epigastric region. No CVA tenderness. No peritoneal signs. SKIN: normal appearance, no pallor/diaphoresis,mottling,jaundice,cyanosis EXT: DP/Rad pulses 2+ and symmetrical; no lateralizing edema; no other lesions seen PSYCH: appropriate mood/affect Internal Medicine: Result - Labs CBC & Chem 7: 12/08/17 21:30 12/09/17 06:11 Labs: BMP 12/09/17 06:11 Sodium 141 Potassium 4.7 D Chloride 112 H Carbon Dioxide 24 BUN 13 Creatinine 1.06 Glucose 100 Calcium 8.6 Consult Discharge Plan - Plan Referrals: Vanessa Ramirez CNP [Primary Care Provider] - <Paolo Morrison H - Last Filed: 12/09/17 12:09> Date of Encounter: 12/09/17 - Assessment and plan (1) Diarrhea Current Visit: No Status: Chronic Qualifiers: Diarrhea type: unspecified type Qualified Code(s): R19.7 - Diarrhea, unspecified (2) Tobacco abuse Current Visit: No Status: Chronic (3) COPD (chronic obstructive pulmonary disease) Current Visit: No Status: Chronic Qualifiers: COPD type: emphysema Emphysema type: unspecified Qualified Code(s): J43.9 - Emphysema, unspecified (4) DVT prophylaxis Current Visit: Yes Status: Acute (5) Acute pancreatitis Current Visit: Yes Status: Acute Qualifiers: Pancreatitis type: unspecified pancreatitis type Acute pancreatitis complication: unspecified Qualified Code(s): K85.90 - Acute pancreatitis without necrosis or infection, unspecified (6) Microhematuria Current Visit: Yes Status: Acute (7) Hyperchloremia Current Visit: Yes Status: Acute - Time Spent With Patient Total time spent is greater than 50% in coordination of care (as documented) at patient's floor/unit and/or counseling patient: - Constitutional Vitals: Temp Pulse Resp BP Pulse Ox 97.6 F 80 16 106/68 98 12/09/17 10:59 12/09/17 10:59 12/09/17 10:59 12/09/17 10:59 12/09/17 10:59 Internal Medicine: Result - Labs CBC & Chem 7: 12/08/17 21:30 12/09/17 06:11 Labs: BMP 12/09/17 06:11 Sodium 141 Potassium 4.7 D Chloride 112 H Carbon Dioxide 24 BUN 13 Creatinine 1.06 Glucose 100 Calcium 8.6 - Attending Attestation dehydration due to acute pancreatitis ivf I examined this patient and my medical decision-making was reviewed with the Resident Physician. I agree with the documented findings, disposition and treatment plan as described except to the extent set forth below.
[2017-12-09] MEDS: Ringers Solution, Lactated 1,000 ML IVC SCH ×3 (12:28→22:53)
[2017-12-09] MEDS: *HR* Heparin 5,000 UNIT/ML VIAL SQ SCH (17:40)
[2017-12-10] MEDS: OXYCODONE Oral CONC 10 MG/0.5 ML ORAL.SYG SL PRN ×4 (03:09→20:25)
[2017-12-10] MEDS: Ringers Solution, Lactated 1,000 ML IVC SCH ×2 (03:09→09:35)
[2017-12-10] MEDS: *HR* Promethazine 25 MG/ML VIAL IVP PRN ×3 (04:07→22:36)
[2017-12-10] MEDS: Ipratropium/Albuterol Neb 3 ML IH SCH ×5 (04:12→22:40)
[2017-12-10] MEDS: *HR* Heparin 5,000 UNIT/ML VIAL SQ SCH ×2 (05:36→17:05)
[2017-12-10 06:47] LABS: BUN/Creatinine Ratio 12 (6-26); Blood Urea Nitrogen 11 mg/dL (6-20); Calcium 8.5 mg/dL (8.6-10.3); Carbon Dioxide 27 mEq/L (23-29); Chloride 109 mEq/L (98-107); Glucose 88 mg/dL (70-105); Osmolality,Calculated 289 (280-300); Potassium 4.1 mEq/L (3.5-5.1); Sodium 140 mEq/L (136-145); eGFR For African Americans > 60 (> 60); eGFR For Non-African Americans > 60 (> 60)
[2017-12-10 06:54] LABS: Basophils # 0.1 K/mcL (0.0-0.2); Basophils % 0.9 %; Eosinophils # 0.2 K/mcL (0.0-0.6); Eosinophils % 3.2 %; Hematocrit 41.4 % (37.5-50.1); Immature Granulocytes % 0.5 % (0-4); Lymphocytes # 2.1 K/mcL (0.6-4.6); Lymphocytes % 36.9 %; Mean Corpuscular HGB Conc 33.8 g/dL (31.6-35.5); Mean Corpuscular Hemoglobin 31.7 pg (28.0-33.3); Mean Corpuscular Volume 93.7 fL (83.0-100.0); Mean Platelet Volume 10.3 fL (9.4-12.4); Monocytes # 0.6 K/mcL (0.0-1.3); Monocytes % 10.6 %; Neutrophils # 2.7 K/mcL (1.6-8.9); Platelet Count 177 K/mcL (140-400); Red Blood Count 4.42 M/mcL (4.19-5.50); Red Cell Distribution Width 13.3 % (11.5-14.5); Segmented Neutrophils % 47.9 %
[2017-12-10] MEDS: Nicotine 14 MG PATCH.TD24 TD SCH (09:33)
--- NOTE | 2017-12-10 10:14 | Internal Med Progress Note ---
<Juan Tineo - Last Filed: 12/10/17 10:34> Date of Encounter: 12/10/17 Time of Encounter: 10:14 - Assessment and plan (1) Acute pancreatitis Current Visit: Yes Status: Acute Assessment and plan: Per history, no clear etiology. Patient has had recurrent episodes despite being asked/P cholecystectomy, without known history of hypertriglyceridemia, and no history of excessive alcohol intake. Last triglyceride level in July 2017 was within normal limits. Patient is followed with Dr. Garrett in the past and has had arranged referral for pancreatic specialist in [place], but has not made any appointments thus far. - Discussions today patient drinks 80 ounces of red bull daily and would like to know if this may be a cause of his symptoms. Research review demonstrates 6 previous cases of correlation but no specific causation. - Patient remains stable today continue management advancement of diet gradually to a bland diet. Potential discharge tomorrow. -- continue analgesia as needed with oxycodone PRN -- continue IVF at maintenance rate of 200 mL/hr lactated ringers; stop date tomorrow a.m. in pursuit of transition to PO intake, patient's on clear liquids currently. -- control nausea with Phenergan as patient states Zofran has not helped -- may attempt to advance clear liquids this afternoon as able; otherwise advanced diet as able -- vitals per protocol; expand workup as needed if clinical status deteriorates -- CBC & BMP in AM Qualifiers: Pancreatitis type: unspecified pancreatitis type Acute pancreatitis complication: unspecified Qualified Code(s): K85.90 - Acute pancreatitis without necrosis or infection, unspecified (2) Tobacco abuse Current Visit: No Status: Chronic Assessment and plan: Half pack a day smoker down from history of 3 packs per day; requests nicotine patch. Counseled smoking cessation which patient states he is actively attempting. (3) COPD (chronic obstructive pulmonary disease) Current Visit: No Status: Chronic Assessment and plan: Stable. -Continue bronchodilator therapy as scheduled. Qualifiers: COPD type: emphysema Emphysema type: unspecified Qualified Code(s): J43.9 - Emphysema, unspecified (4) Microhematuria Current Visit: Yes Status: Acute Assessment and plan: History of nephro-ureterolithiasis and ureteral stenting -- last episode in 2014. Patient states current pain not similar to previous episodes. Patient not having any dysuria, gross hematuria, or flank pain. May pursue further workup if pain/course more closely indicative of ureterolithiasis. - Continue monitor follow-up outpatient. (5) DVT prophylaxis Current Visit: Yes Status: Acute Assessment and plan: subcutaneous heparin (6) Hyperchloremia Current Visit: Yes Status: Acute Assessment and plan: Chloride trending down now that IV fluids are discontinued. Continue to monitor. - Time Spent With Patient Total time spent is greater than 50% in coordination of care (as documented) at patient's floor/unit and/or counseling patient: - Constitutional Vitals: Temp Pulse Resp BP Pulse Ox 97.6 F 59 18 99/59 95 12/10/17 05:06 12/10/17 05:06 12/10/17 05:06 12/10/17 05:06 12/10/17 05:06 General appearance: Present: A&O X 3, pleasant, no acute distress, obese, answers questions appropriately Exam: General: Patient alert, awake, oriented 3, interactive, in no acute distress HEENT: Normocephalic, atraumatic, pupils equal reactive to light, nasal cavity patent and open septum median position, oral mucosa moist, uvula midline, neck supple trachea midline no palpable lymphadenopathy, no thyromegaly. Chest: Symmetric bilateral correlating with respiratory effort, effort nonlabored. Cardiac: Regular rate and rhythm, positive S1 and S2. no bruits appreciated bilateral carotids, Radial pulses 2+ bilateral, posterior tibial and dorsal pedal pulses 2+ bilateral. Respiratory: Clear to auscultation all lung mcgregor Abdomen: Distended, mild tenderness periumbilical region. positive bowel sounds , no palpable masses appreciated on examination Extremities: Symmetric bilateral, bilateral lower extremities without erythema or edema patient moving all 4 extremities spontaneously. Neurologic: No focal deficits appreciated on examination. Face symmetric, muscle strength symmetric bilateral upper and lower extremities. Internal Medicine: Result - Labs CBC & Chem 7: 12/10/17 04:55 12/10/17 04:55 Labs: Short CBC 12/10/17 Range/Units 04:55 WBC 5.6 (4.3-11.1) K/mcL Hgb 14.0 D (12.9-16.9) g/dL Hct 41.4 (37.5-50.1) % Plt Count 177 (140-400) K/mcL Neutrophils # 2.7 (1.6-8.9) K/mcL BMP 12/10/17 04:55 Sodium 140 Potassium 4.1 Chloride 109 H Carbon Dioxide 27 BUN 11 Creatinine 0.90 Glucose 88 Calcium 8.5 L Consult Discharge Plan - Plan Referrals: Vanessa Ramirez CNP [Primary Care Provider] - <Paolo Morrison H - Last Filed: 12/10/17 14:24> Date of Encounter: 12/10/17 - Assessment and plan (1) Tobacco abuse Current Visit: No Status: Chronic (2) COPD (chronic obstructive pulmonary disease) Current Visit: No Status: Chronic Qualifiers: COPD type: emphysema Emphysema type: unspecified Qualified Code(s): J43.9 - Emphysema, unspecified (3) DVT prophylaxis Current Visit: Yes Status: Acute (4) Acute pancreatitis Current Visit: Yes Status: Acute Qualifiers: Pancreatitis type: unspecified pancreatitis type Acute pancreatitis complication: unspecified Qualified Code(s): K85.90 - Acute pancreatitis without necrosis or infection, unspecified (5) Microhematuria Current Visit: Yes Status: Acute (6) Hyperchloremia Current Visit: Yes Status: Acute - Time Spent With Patient Total time spent is greater than 50% in coordination of care (as documented) at patient's floor/unit and/or counseling patient: - Constitutional Vitals: Temp Pulse Resp BP Pulse Ox 97.8 F 72 16 111/76 95 12/10/17 11:26 12/10/17 11:26 12/10/17 11:26 12/10/17 11:26 12/10/17 11:26 Internal Medicine: Result - Labs CBC & Chem 7: 12/10/17 04:55 12/10/17 04:55 Labs: Short CBC 12/10/17 Range/Units 04:55 WBC 5.6 (4.3-11.1) K/mcL Hgb 14.0 D (12.9-16.9) g/dL Hct 41.4 (37.5-50.1) % Plt Count 177 (140-400) K/mcL Neutrophils # 2.7 (1.6-8.9) K/mcL BMP 12/10/17 04:55 Sodium 140 Potassium 4.1 Chloride 109 H Carbon Dioxide 27 BUN 11 Creatinine 0.90 Glucose 88 Calcium 8.5 L - Attending Attestation dehydration due to acute pancreatitis ivf, advance diet Avoid red bull/energy drinks I examined this patient and my medical decision-making was reviewed with the Resident Physician. I agree with the documented findings, disposition and treatment plan as described except to the extent set forth below.
[2017-12-10] MEDS: Beclomethasone 80mcg MDI IH SCH ×3 (11:35→22:40)
[2017-12-10] MEDS ORDERED: Ringers Solution, Lactated 1,000 ML IVC SCH (13:45)
[2017-12-11] MEDS: OXYCODONE Oral CONC 10 MG/0.5 ML ORAL.SYG SL PRN ×4 (02:25→20:14)
[2017-12-11] MEDS: Ipratropium/Albuterol Neb 3 ML IH SCH ×4 (04:14→22:25)
[2017-12-11] MEDS: *HR* Heparin 5,000 UNIT/ML VIAL SQ SCH ×3 (04:52→18:00)
[2017-12-11] MEDS: *HR* Promethazine 25 MG/ML VIAL IVP PRN ×2 (06:26→17:52)
[2017-12-11 06:54] LABS: BUN/Creatinine Ratio 11 (6-26); Blood Urea Nitrogen 11 mg/dL (6-20); Calcium 8.8 mg/dL (8.6-10.3); Carbon Dioxide 30 mEq/L (23-29); Chloride 106 mEq/L (98-107); Glucose 93 mg/dL (70-105); Osmolality,Calculated 285 (280-300); Sodium 138 mEq/L (136-145); eGFR For African Americans > 60 (> 60); eGFR For Non-African Americans > 60 (> 60)
[2017-12-11 06:57] LABS: Basophils % 0.5 %; Eosinophils # 0.2 K/mcL (0.0-0.6); Eosinophils % 3.5 %; Hematocrit 41.8 % (37.5-50.1); Hemoglobin 14.2 g/dL (12.9-16.9); Immature Granulocytes % 0.3 % (0-4); Lymphocytes # 1.9 K/mcL (0.6-4.6); Lymphocytes % 28.1 %; Mean Corpuscular Hemoglobin 31.6 pg (28.0-33.3); Mean Corpuscular Volume 92.9 fL (83.0-100.0); Mean Platelet Volume 10.2 fL (9.4-12.4); Monocytes # 0.7 K/mcL (0.0-1.3); Monocytes % 11.1 %; Neutrophils # 3.7 K/mcL (1.6-8.9); Platelet Count 185 K/mcL (140-400); Red Cell Distribution Width 13.4 % (11.5-14.5); Segmented Neutrophils % 56.5 %
--- NOTE | 2017-12-11 08:34 | Internal Med Progress Note ---
<Juan Tineo - Last Filed: 12/11/17 08:30> Date of Encounter: 12/11/17 Time of Encounter: 08:31 - Assessment and plan (1) Acute pancreatitis Current Visit: Yes Status: Acute Assessment and plan: Per history, no clear etiology. Patient has had recurrent episodes despite being asked/P cholecystectomy, without known history of hypertriglyceridemia, and no history of excessive alcohol intake. Last triglyceride level in July 2017 was within normal limits. Patient is followed with Dr. Garrett in the past and has had arranged referral for pancreatic specialist in [place], but has not made any appointments thus far. - Discussions today patient drinks 80 ounces of red bull daily and would like to know if this may be a cause of his symptoms. Research review demonstrates 6 previous cases of correlation but no specific causation. 12/11: Recurrent episode of flare of pancreatitis after solid food. Currently nothing by mouth, continuing pain control which is manageable at this time. -- continue analgesia as needed with oxycodone PRN -- continue IVF at maintenance rate of 200 mL/hr lactated ringers -- control nausea with Phenergan, EKG reviewed and appropriate. -- may attempt to advance clear liquids this afternoon as able; otherwise advanced diet as able -- vitals per protocol; expand workup as needed if clinical status deteriorates -- CBC & BMP in AM Qualifiers: Pancreatitis type: unspecified pancreatitis type Acute pancreatitis complication: unspecified Qualified Code(s): K85.90 - Acute pancreatitis without necrosis or infection, unspecified (2) Tobacco abuse Current Visit: No Status: Chronic Assessment and plan: Half pack a day smoker down from history of 3 packs per day; requests nicotine patch. Counseled smoking cessation which patient states he is actively attempting. (3) COPD (chronic obstructive pulmonary disease) Current Visit: No Status: Chronic Assessment and plan: Stable. -Continue bronchodilator therapy as scheduled. Qualifiers: COPD type: emphysema Emphysema type: unspecified Qualified Code(s): J43.9 - Emphysema, unspecified (4) Microhematuria Current Visit: Yes Status: Acute Assessment and plan: History of nephro-ureterolithiasis and ureteral stenting -- last episode in 2014. Patient states current pain not similar to previous episodes. Patient not having any dysuria, gross hematuria, or flank pain. May pursue further workup if pain/course more closely indicative of ureterolithiasis. - Continue monitor follow-up outpatient. (5) DVT prophylaxis Current Visit: Yes Status: Acute Assessment and plan: subcutaneous heparin (6) Hyperchloremia Current Visit: Yes Status: Acute Assessment and plan: Chloride trending down now that IV fluids are discontinued. Continue to monitor. - Time Spent With Patient Total time spent is greater than 50% in coordination of care (as documented) at patient's floor/unit and/or counseling patient: - Subjective Interval history: Mr. Hanks has been seen and evaluated patient bedside this morning. He is resting comfortably in bed, states he continues to have abdominal discomforts after taking in solid food yesterday. He tolerated clear liquids without any abdominal discomfort and advance his diet yesterday after doing so he started having severe abdominal pain nausea and vomiting which improved after nothing by mouth. He feels slightly improved this morning, but continues abdominal discomfort that is manageable currently. He has no further concerns or questions at this time he is just puzzled by his recurrent pancreatitis episodes. - Constitutional Vitals: Temp Pulse Resp BP Pulse Ox 97.6 F 70 18 105/69 95 12/11/17 06:52 12/11/17 06:52 12/11/17 06:52 12/11/17 06:52 12/11/17 06:52 General appearance: Present: A&O X 3, pleasant, no acute distress, obese, answers questions appropriately Exam: CONSTITUTIONAL: Alert and oriented X3, well-nourished, well appearing, in no apparent distress HEAD: Normocephalic; atraumatic. EYES: PERRL, no scleral icterus, no drainage, no conjunctival injection NOSE: just finishing IH tx with mask in place, no rhinorrhea Oropharynx: pink/moist, no tonsillar edema/erythema/exudates RESP: NRD without use of accessory musculature, does have diffuse expiratory wheezes, but denies acute dyspnea CARD: Regular rhythm, without murmurs, rubs, or gallop ABD: grossly normal, soft, non-distended, non-rigid; does have tenderness at periumbilical and epigastric region. No CVA tenderness. No peritoneal signs. SKIN: normal appearance, no pallor/diaphoresis,mottling,jaundice,cyanosis EXT: DP/Rad pulses 2+ and symmetrical; no lateralizing edema; no other lesions seen PSYCH: appropriate mood/affect Internal Medicine: Result - Labs CBC & Chem 7: 12/11/17 06:26 12/11/17 04:00 Labs: Short CBC 12/11/17 Range/Units 06:26 WBC 6.6 (4.3-11.1) K/mcL Hgb 14.2 (12.9-16.9) g/dL Hct 41.8 (37.5-50.1) % Plt Count 185 (140-400) K/mcL Neutrophils # 3.7 (1.6-8.9) K/mcL BMP 12/11/17 04:00 Sodium 138 Potassium 4.0 Chloride 106 Carbon Dioxide 30 H BUN 11 Creatinine 1.00 Glucose 93 Calcium 8.8 Consult Discharge Plan - Plan Referrals: Vanessa Ramirez CNP [Primary Care Provider] - <Paolo Morrison H - Last Filed: 12/11/17 11:16> Date of Encounter: 12/11/17 - Assessment and plan (1) Tobacco abuse Current Visit: No Status: Chronic (2) COPD (chronic obstructive pulmonary disease) Current Visit: No Status: Chronic Qualifiers: COPD type: emphysema Emphysema type: unspecified Qualified Code(s): J43.9 - Emphysema, unspecified (3) DVT prophylaxis Current Visit: Yes Status: Acute (4) Acute pancreatitis Current Visit: Yes Status: Acute Qualifiers: Pancreatitis type: unspecified pancreatitis type Acute pancreatitis complication: unspecified Qualified Code(s): K85.90 - Acute pancreatitis without necrosis or infection, unspecified (5) Microhematuria Current Visit: Yes Status: Acute (6) Hyperchloremia Current Visit: Yes Status: Acute - Time Spent With Patient Total time spent is greater than 50% in coordination of care (as documented) at patient's floor/unit and/or counseling patient: - Constitutional Vitals: Temp Pulse Resp BP Pulse Ox 97.9 F 70 18 110/69 98 12/11/17 11:12 12/11/17 11:12 12/11/17 11:12 12/11/17 11:12 12/11/17 11:12 Internal Medicine: Result - Labs CBC & Chem 7: 12/11/17 06:26 12/11/17 04:00 Labs: Short CBC 12/11/17 Range/Units 06:26 WBC 6.6 (4.3-11.1) K/mcL Hgb 14.2 (12.9-16.9) g/dL Hct 41.8 (37.5-50.1) % Plt Count 185 (140-400) K/mcL Neutrophils # 3.7 (1.6-8.9) K/mcL BMP 12/11/17 04:00 Sodium 138 Potassium 4.0 Chloride 106 Carbon Dioxide 30 H BUN 11 Creatinine 1.00 Glucose 93 Calcium 8.8 - Attending Attestation dehydration due to acute pancreatitis still in pain ivf, back on clear liquids, advance diet as tolerated Avoid red bull/energy drinks I examined this patient and my medical decision-making was reviewed with the Resident Physician. I agree with the documented findings, disposition and treatment plan as described except to the extent set forth below.
[2017-12-11] MEDS: Nicotine 14 MG PATCH.TD24 TD SCH (09:02)
[2017-12-11] MEDS: Beclomethasone 80mcg MDI IH SCH ×2 (11:08→22:25)
[2017-12-11] MEDS: Ringers Solution, Lactated 1,000 ML IVC SCH ×2 (13:16→20:13)
[2017-12-12] MEDS: OXYCODONE Oral CONC 10 MG/0.5 ML ORAL.SYG SL PRN ×5 (00:31→21:53)
[2017-12-12] MEDS: Ringers Solution, Lactated 1,000 ML IVC SCH ×6 (00:32→21:53)
[2017-12-12] MEDS: *HR* Promethazine 25 MG/ML VIAL IVP PRN ×4 (02:42→21:53)
[2017-12-12] MEDS: Ipratropium/Albuterol Neb 3 ML IH SCH ×4 (04:06→21:21)
[2017-12-12] MEDS: *HR* Heparin 5,000 UNIT/ML VIAL SQ SCH ×2 (04:37→17:08)
[2017-12-12 05:16] LABS: Basophils % 0.7 %; Eosinophils # 0.3 K/mcL (0.0-0.6); Eosinophils % 5.5 %; Hematocrit 43.1 % (37.5-50.1); Hemoglobin 14.5 g/dL (12.9-16.9); Immature Granulocytes % 0.3 % (0-4); Lymphocytes # 2.3 K/mcL (0.6-4.6); Lymphocytes % 38.2 %; Mean Corpuscular HGB Conc 33.6 g/dL (31.6-35.5); Mean Corpuscular Hemoglobin 31.5 pg (28.0-33.3); Mean Corpuscular Volume 93.5 fL (83.0-100.0); Monocytes # 0.8 K/mcL (0.0-1.3); Monocytes % 13.5 %; Neutrophils # 2.5 K/mcL (1.6-8.9); Platelet Count 186 K/mcL (140-400); Red Blood Count 4.61 M/mcL (4.19-5.50); Red Cell Distribution Width 13.3 % (11.5-14.5); Segmented Neutrophils % 41.8 %
[2017-12-12 05:22] LABS: Alanine Aminotransferase 19 Units/L (7-52); Albumin 3.5 g/dL (3.5-5.7); Albumin/Globulin Ratio 1.4 (1.1-2.2); Alkaline Phosphatase 80 Units/L (34-104); Aspartate Amino Transferase 17 Units/L (13-39); BUN/Creatinine Ratio 10 (6-26); Bilirubin,Total 0.8 mg/dL (0.3-1.0); Blood Urea Nitrogen 10 mg/dL (6-20); Calcium 8.9 mg/dL (8.6-10.3); Carbon Dioxide 31 mEq/L (23-29); Chloride 107 mEq/L (98-107); Globulin 2.5 g/dL (2.4-3.5); Glucose 90 mg/dL (70-105); Osmolality,Calculated 287 (280-300); Potassium 4.2 mEq/L (3.5-5.1); Sodium 139 mEq/L (136-145); eGFR For African Americans > 60 (> 60); eGFR For Non-African Americans > 60 (> 60)
[2017-12-12] MEDS: Nicotine 14 MG PATCH.TD24 TD SCH (08:06)
[2017-12-12] MEDS: Beclomethasone 80mcg MDI IH SCH ×2 (10:28→21:21)
--- NOTE | 2017-12-12 10:30 | Internal Med Progress Note ---
<Sung Schultz - Last Filed: 12/12/17 10:43> Date of Encounter: 12/12/17 Time of Encounter: 10:24 - Assessment and plan (1) Acute pancreatitis Current Visit: Yes Status: Acute Assessment and plan: Per history, no clear etiology. Patient has had recurrent episodes since January 2017 despite being S/P cholecystectomy, without known history of hypertriglyceridemia, and no history of excessive alcohol intake. Last triglyceride level in July 2017 was within normal limits. Patient is followed with Dr. Garrett in the past and has had arranged referral for pancreatic specialist in [place], but has not made any appointments thus far. - Discussions today patient drinks 80 ounces of red bull daily and would like to know if this may be a cause of his symptoms. Research review demonstrates 6 previous cases of correlation but no specific causation. 12/11: Recurrent episode of flare of pancreatitis after solid food. Currently nothing by mouth, continuing pain control which is manageable at this time -- continue analgesia as needed with oxycodone PRN -- continue IVF at maintenance rate of 200 mL/hr lactated ringers -- control nausea with Phenergan, EKG reviewed and appropriate. -- may attempt to advance clear liquids this afternoon as able; otherwise advanced diet as able -- vitals per protocol; expand workup as needed if clinical status deteriorates -- CBC & BMP in AM 12/12: Pt continues to have pain and is unable to advance diet. Will continue symptomatic management as above with pain control, LR, CLD phenergran. Qualifiers: Pancreatitis type: unspecified pancreatitis type Acute pancreatitis complication: unspecified Qualified Code(s): K85.90 - Acute pancreatitis without necrosis or infection, unspecified (2) Tobacco abuse Current Visit: Yes Status: Chronic Assessment and plan: Half pack a day smoker down from history of 3 packs per day; requests nicotine patch. Counseled smoking cessation which patient states he is actively attempting. (3) COPD (chronic obstructive pulmonary disease) Current Visit: No Status: Chronic Assessment and plan: Stable. -Continue bronchodilator therapy as scheduled. - No complaints of SOB Qualifiers: COPD type: emphysema Emphysema type: unspecified Qualified Code(s): J43.9 - Emphysema, unspecified (4) Microhematuria Current Visit: Yes Status: Acute Assessment and plan: History of nephro-ureterolithiasis and ureteral stenting -- last episode in 2014. Patient states current pain not similar to previous episodes. Patient not having any dysuria, gross hematuria, or flank pain. May pursue further workup if pain/course more closely indicative of ureterolithiasis. - Continue monitor follow-up outpatient. 12/12: No urinary complaints. As above for pancreatitis. (5) DVT prophylaxis Current Visit: Yes Status: Acute Assessment and plan: subcutaneous heparin 5000 units q12 hours (6) Hyperchloremia Current Visit: Yes Status: Resolved Assessment and plan: Chloride within normal limits after rehydration. Continue to monitor with daily labs. - Time Spent With Patient Total time spent is greater than 50% in coordination of care (as documented) at patient's floor/unit and/or counseling patient: - Subjective Interval history: Patient was seen and examined this morning at bedside. He states that he is still experiencing diffuse abdominal pain that is throbbing in nature. He had some nausea last evening but no episodes this morning. He was started on clear liquid diet and states that he had some jello this morning which so far has been sitting well. Pain is currently a 6/10 which is an improvement from admission. - Constitutional Vitals: Temp Pulse Resp BP Pulse Ox 98.2 F 67 16 125/75 96 12/12/17 06:52 12/12/17 06:52 12/12/17 06:52 12/12/17 06:52 12/12/17 08:44 General appearance: Present: A&O X 3, pleasant, no acute distress, obese, answers questions appropriately Exam: Gen.: Vitals noted. No acute distress. AAOx3 HEENT: PERRL/EOMI, oropharynx clear, Normocephalic, atraumatic, mildly dry mucous membranes Cardiac: RRR, no murmur, +S1/S2 Pulmonary: CTA bilaterally, no wheezes, rales or rhonchi, equal chest expansion Abdomen: soft, tenderness to palpation diffusely with worst in epigastric and suprapubic, BS noted, no guarding, no rebound. Extremities: no BLE edema, nontender calf, no cyanosis or clubbing Neuro: A&Ox3, moves all extremities, no focal deficits Psych: Appropriate mood and behavior Internal Medicine: Result - Labs CBC & Chem 7: 12/12/17 04:00 12/12/17 04:00 Labs: Short CBC 12/12/17 Range/Units 04:00 WBC 6.0 (4.3-11.1) K/mcL Hgb 14.5 (12.9-16.9) g/dL Hct 43.1 (37.5-50.1) % Plt Count 186 (140-400) K/mcL Neutrophils # 2.5 (1.6-8.9) K/mcL BMP 12/12/17 04:00 Sodium 139 Potassium 4.2 Chloride 107 Carbon Dioxide 31 H BUN 10 Creatinine 0.97 Glucose 90 Calcium 8.9 Liver Function 12/12/17 Range/Units 04:00 Total Bilirubin 0.8 (0.3-1.0) mg/dL AST 17 (13-39) Units/L ALT 19 (7-52) Units/L Alkaline Phosphatase 80 (34-104) Units/L Albumin 3.5 (3.5-5.7) g/dL Consult Discharge Plan - Plan Referrals: Vanessa Ramirez CNP [Primary Care Provider] - 12/19/17 11:00 am <Paolo Morrison H - Last Filed: 12/12/17 12:53> Date of Encounter: 12/12/17 - Assessment and plan (1) Tobacco abuse Current Visit: Yes Status: Chronic (2) COPD (chronic obstructive pulmonary disease) Current Visit: No Status: Chronic Qualifiers: COPD type: emphysema Emphysema type: unspecified Qualified Code(s): J43.9 - Emphysema, unspecified (3) DVT prophylaxis Current Visit: Yes Status: Acute (4) Acute pancreatitis Current Visit: Yes Status: Acute Qualifiers: Pancreatitis type: unspecified pancreatitis type Acute pancreatitis complication: unspecified Qualified Code(s): K85.90 - Acute pancreatitis without necrosis or infection, unspecified (5) Microhematuria Current Visit: Yes Status: Acute (6) Hyperchloremia Current Visit: Yes Status: Resolved - Time Spent With Patient Total time spent is greater than 50% in coordination of care (as documented) at patient's floor/unit and/or counseling patient: - Constitutional Vitals: Temp Pulse Resp BP Pulse Ox 97.8 F 67 16 110/67 97 12/12/17 11:01 12/12/17 11:01 12/12/17 11:01 12/12/17 11:01 04/16/18 11:01 Internal Medicine: Result - Labs CBC & Chem 7: 12/12/17 04:00 12/12/17 04:00 Labs: Short CBC 12/12/17 Range/Units 04:00 WBC 6.0 (4.3-11.1) K/mcL Hgb 14.5 (12.9-16.9) g/dL Hct 43.1 (37.5-50.1) % Plt Count 186 (140-400) K/mcL Neutrophils # 2.5 (1.6-8.9) K/mcL BMP 12/12/17 04:00 Sodium 139 Potassium 4.2 Chloride 107 Carbon Dioxide 31 H BUN 10 Creatinine 0.97 Glucose 90 Calcium 8.9 Liver Function 12/12/17 Range/Units 04:00 Total Bilirubin 0.8 (0.3-1.0) mg/dL AST 17 (13-39) Units/L ALT 19 (7-52) Units/L Alkaline Phosphatase 80 (34-104) Units/L Albumin 3.5 (3.5-5.7) g/dL - Attending Attestation dehydration due to acute pancreatitis still in pain ivf, back on clear liquids ( NPO if still complaining of severe pain later today ), advance diet as tolerated Avoid red bull/energy drinks I examined this patient and my medical decision-making was reviewed with the Resident Physician. I agree with the documented findings, disposition and treatment plan as described except to the extent set forth below.
[2017-12-13] MEDS: Ringers Solution, Lactated 1,000 ML IVC SCH ×3 (02:53→09:55)
[2017-12-13] MEDS: OXYCODONE Oral CONC 10 MG/0.5 ML ORAL.SYG SL PRN ×4 (04:15→21:57)
[2017-12-13] MEDS: *HR* Promethazine 25 MG/ML VIAL IVP PRN ×4 (04:16→21:58)
[2017-12-13] MEDS: Ipratropium/Albuterol Neb 3 ML IH SCH ×4 (04:23→21:29)
[2017-12-13] MEDS: *HR* Heparin 5,000 UNIT/ML VIAL SQ SCH ×2 (05:04→17:22)
[2017-12-13] MEDS: Nicotine 14 MG PATCH.TD24 TD SCH (08:19)
[2017-12-13 09:46] LABS: Basophils # 0.1 K/mcL (0.0-0.2); Basophils % 0.9 %; Eosinophils # 0.4 K/mcL (0.0-0.6); Eosinophils % 5.5 %; Hematocrit 47.3 % (37.5-50.1); Hemoglobin 15.9 g/dL (12.9-16.9); Immature Granulocytes % 0.3 % (0-4); Lymphocytes # 2.1 K/mcL (0.6-4.6); Lymphocytes % 32.3 %; Mean Corpuscular HGB Conc 33.6 g/dL (31.6-35.5); Mean Corpuscular Hemoglobin 31.5 pg (28.0-33.3); Mean Corpuscular Volume 93.7 fL (83.0-100.0); Mean Platelet Volume 9.7 fL (9.4-12.4); Monocytes # 0.8 K/mcL (0.0-1.3); Monocytes % 12.2 %; Neutrophils # 3.2 K/mcL (1.6-8.9); Platelet Count 197 K/mcL (140-400); Red Blood Count 5.05 M/mcL (4.19-5.50); Red Cell Distribution Width 12.9 % (11.5-14.5); Segmented Neutrophils % 48.8 %
[2017-12-13 10:04] LABS: BUN/Creatinine Ratio 10 (6-26); Blood Urea Nitrogen 9 mg/dL (6-20); Carbon Dioxide 27 mEq/L (23-29); Chloride 105 mEq/L (98-107); Glucose 87 mg/dL (70-105); Potassium 4.4 mEq/L (3.5-5.1); Sodium 137 mEq/L (136-145); eGFR For African Americans > 60 (> 60); eGFR For Non-African Americans > 60 (> 60)
[2017-12-13 10:05] LABS: Calcium 9.1 mg/dL (8.6-10.3); Osmolality,Calculated 282 (280-300)
[2017-12-13] MEDS: Beclomethasone 80mcg MDI IH SCH ×2 (10:58→21:30)
[2017-12-13] MEDS ORDERED: Isovue-370 500 ML INFUS..BTL IV ONE (11:15)
--- NOTE | 2017-12-13 11:15 | Internal Med Progress Note ---
<Sung Schultz - Last Filed: 12/13/17 11:18> Date of Encounter: 12/13/17 Time of Encounter: 10:00 - Assessment and plan (1) Acute pancreatitis Current Visit: Yes Status: Acute Assessment and plan: Per history, no clear etiology. Patient has had recurrent episodes since January 2017 despite being S/P cholecystectomy, without known history of hypertriglyceridemia, and no history of excessive alcohol intake. Last triglyceride level in July 2017 was within normal limits. Patient is followed with Dr. Garrett in the past and has had arranged referral for pancreatic specialist in [place], but has not made any appointments thus far. - Discussions today patient drinks 80 ounces of red bull daily and would like to know if this may be a cause of his symptoms. Research review demonstrates 6 previous cases of correlation but no specific causation. 12/11: Recurrent episode of flare of pancreatitis after solid food. Currently nothing by mouth, continuing pain control which is manageable at this time -- continue analgesia as needed with oxycodone PRN -- continue IVF at maintenance rate of 200 mL/hr lactated ringers -- control nausea with Phenergan, EKG reviewed and appropriate. -- may attempt to advance clear liquids this afternoon as able; otherwise advanced diet as able -- vitals per protocol; expand workup as needed if clinical status deteriorates -- CBC & BMP in AM 12/12: Pt continues to have pain and is unable to advance diet. Will continue symptomatic management as above with pain control, LR, CLD phenergran. 12/13: Pain mildly improved. Willing to attempt further diet. Continue symptomatic management. Ordered CT abd/pelvis to better visualize pancreas as last CT was August 2017. Add nutrional consult for pancreatic enzyme replacement. Qualifiers: Pancreatitis type: unspecified pancreatitis type Acute pancreatitis complication: unspecified Qualified Code(s): K85.90 - Acute pancreatitis without necrosis or infection, unspecified (2) Tobacco abuse Current Visit: Yes Status: Chronic Assessment and plan: Half pack a day smoker down from history of 3 packs per day; requests nicotine patch. Counseled smoking cessation which patient states he is actively attempting. (3) COPD (chronic obstructive pulmonary disease) Current Visit: No Status: Chronic Assessment and plan: Stable. -Continue bronchodilator therapy as scheduled. - No complaints of SOB Qualifiers: COPD type: emphysema Emphysema type: unspecified Qualified Code(s): J43.9 - Emphysema, unspecified (4) Microhematuria Current Visit: Yes Status: Acute Assessment and plan: History of nephro-ureterolithiasis and ureteral stenting -- last episode in 2014. Patient states current pain not similar to previous episodes. Patient not having any dysuria, gross hematuria, or flank pain. May pursue further workup if pain/course more closely indicative of ureterolithiasis. - Continue monitor follow-up outpatient. 12/12: No urinary complaints. As above for pancreatitis. 12/13: Continues to be asymptomatic. (5) DVT prophylaxis Current Visit: Yes Status: Acute Assessment and plan: subcutaneous heparin 5000 units q12 hours (6) Hyperchloremia Current Visit: Yes Status: Resolved Assessment and plan: Chloride within normal limits after rehydration. Continue to monitor with daily labs. - Time Spent With Patient Total time spent is greater than 50% in coordination of care (as documented) at patient's floor/unit and/or counseling patient: - Subjective Interval history: Patient was seen and examined this morning at bedside. He states that he is still experiencing diffuse abdominal pain that is dull in nature. He had some nausea last evening but nothing out of the ordinary. He was started on clear liquid diet and states that he had some jello last evening which settled well. He is willing to advance his diet today. No bowel movements. - Constitutional Vitals: Temp Pulse Resp BP Pulse Ox 98.7 F 77 15 104/69 95 12/13/17 03:23 12/13/17 03:23 12/13/17 11:00 12/13/17 03:23 12/13/17 11:00 General appearance: Present: A&O X 3, pleasant, no acute distress, obese, answers questions appropriately Exam: Gen.: Vitals noted. No acute distress. AAOx3. resting in bed comfortably. HEENT: PERRL/EOMI, oropharynx clear, Normocephalic, atraumatic, MMM Cardiac: RRR, no murmur, +S1/S2 Pulmonary: CTA bilaterally, no wheezes, rales or rhonchi, equal chest expansion Abdomen: soft, tender to palpation in lower quadrants, BS noted, no guarding, no rebound. Extremities: no BLE edema, nontender calf, no cyanosis or clubbing Neuro: A&Ox3, moves all extremities, no focal deficits Psych: Appropriate mood and behavior Internal Medicine: Result - Labs CBC & Chem 7: 12/13/17 09:28 12/13/17 09:28 Labs: Short CBC 12/13/17 Range/Units 09:28 WBC 6.5 (4.3-11.1) K/mcL Hgb 15.9 (12.9-16.9) g/dL Hct 47.3 (37.5-50.1) % Plt Count 197 (140-400) K/mcL Neutrophils # 3.2 (1.6-8.9) K/mcL BMP 12/13/17 09:28 Sodium 137 Potassium 4.4 Chloride 105 Carbon Dioxide 27 BUN 9 Creatinine 0.93 Glucose 87 Calcium 9.1 Consult Discharge Plan - Plan Referrals: Vanessa Ramirez CNP [Primary Care Provider] - 12/19/17 11:00 am <Marlo Oshea - Last Filed: 12/13/17 19:26> Date of Encounter: 12/13/17 - Assessment and plan (1) Tobacco abuse Current Visit: Yes Status: Chronic (2) COPD (chronic obstructive pulmonary disease) Current Visit: No Status: Chronic Qualifiers: COPD type: emphysema Emphysema type: unspecified Qualified Code(s): J43.9 - Emphysema, unspecified (3) DVT prophylaxis Current Visit: Yes Status: Acute (4) Acute pancreatitis Current Visit: Yes Status: Acute Qualifiers: Pancreatitis type: unspecified pancreatitis type Acute pancreatitis complication: unspecified Qualified Code(s): K85.90 - Acute pancreatitis without necrosis or infection, unspecified (5) Microhematuria Current Visit: Yes Status: Acute (6) Hyperchloremia Current Visit: Yes Status: Resolved - Time Spent With Patient Total time spent is greater than 50% in coordination of care (as documented) at patient's floor/unit and/or counseling patient: - Constitutional Vitals: Temp Pulse Resp BP Pulse Ox 98.1 F 79 16 122/70 93 12/13/17 15:34 12/13/17 15:34 12/13/17 18:44 12/13/17 15:34 12/13/17 18:44 Internal Medicine: Result - Labs CBC & Chem 7: 12/13/17 09:28 12/13/17 09:28 Labs: Short CBC 12/13/17 Range/Units 09:28 WBC 6.5 (4.3-11.1) K/mcL Hgb 15.9 (12.9-16.9) g/dL Hct 47.3 (37.5-50.1) % Plt Count 197 (140-400) K/mcL Neutrophils # 3.2 (1.6-8.9) K/mcL BMP 12/13/17 09:28 Sodium 137 Potassium 4.4 Chloride 105 Carbon Dioxide 27 BUN 9 Creatinine 0.93 Glucose 87 Calcium 9.1 - Impressions Impressions Abdomen/Pelvis CT 12/13/17 11:15 IMPRESSION: 1. No acute intra-abdominal or intrapelvic process. Namely, no CT evidence of pancreatitis. 2. Bilateral nonobstructing nephrolithiasis, without evidence of a ureteral calculus or hydronephrosis. 3. Stable small bilateral renal cysts. 4. Patient is status post cholecystectomy and ventral hernia repair. D/ / 12/13/2017 12:43:32 [facility]ung Joe [facility] Interpreting Provider: Sung Joe MD - Attending Attestation I examined this patient and my medical decision-making was reviewed with the Resident Physician Dr. Schultz. I agree with the documented findings, disposition and treatment plan as described except to the extent set forth below. Pt states his abdominal pain is little better today. Able to tolerate full liquid diet ok. Reviewed CT of abd - no acute intra abdominal process noticed a/p 1. Acute on chronic pancreatitis cont supportive and symptomatic care.
[2017-12-13 11:43] LABS: Amylase 22 Units/L (29-103); Lipase 30 Units/L (11-82)
[2017-12-14] MEDS: Ipratropium/Albuterol Neb 3 ML IH SCH ×2 (04:20→11:07)
[2017-12-14] MEDS: OXYCODONE Oral CONC 10 MG/0.5 ML ORAL.SYG SL PRN ×2 (05:11→12:08)
[2017-12-14] MEDS: *HR* Promethazine 25 MG/ML VIAL IVP PRN (05:12)
[2017-12-14] MEDS: *HR* Heparin 5,000 UNIT/ML VIAL SQ SCH (05:15)
[2017-12-14 05:40] LABS: Basophils # 0.1 K/mcL (0.0-0.2); Basophils % 0.9 %; Eosinophils # 0.4 K/mcL (0.0-0.6); Eosinophils % 5.1 %; Hematocrit 47.9 % (37.5-50.1); Hemoglobin 16.3 g/dL (12.9-16.9); Lymphocytes % 25.1 %; Mean Corpuscular Hemoglobin 31.4 pg (28.0-33.3); Mean Corpuscular Volume 92.3 fL (83.0-100.0); Mean Platelet Volume 10.5 fL (9.4-12.4); Monocytes % 12.7 %; Neutrophils # 4.4 K/mcL (1.6-8.9); Platelet Count 185 K/mcL (140-400); Red Blood Count 5.19 M/mcL (4.19-5.50); Segmented Neutrophils % 54.2 %
[2017-12-14] MEDS: Nicotine 14 MG PATCH.TD24 TD SCH (07:45)
[2017-12-14 10:53] VITALS: BP 119/66
[2017-12-14] MEDS: Beclomethasone 80mcg MDI IH SCH (11:07)
--- NOTE | 2017-12-14 11:55 | Discharge Summary ---
<Sung Schultz - Last Filed: 12/14/17 15:12> Date of Encounter: 12/14/17 Time of Encounter: 11:50 - Discharge Diagnosis (1) Acute pancreatitis Priority: Primary Status: Acute Qualifiers: Pancreatitis type: unspecified pancreatitis type Acute pancreatitis complication: unspecified Qualified Code(s): K85.90 - Acute pancreatitis without necrosis or infection, unspecified (2) Tobacco abuse Priority: Secondary Status: Chronic (3) COPD (chronic obstructive pulmonary disease) Priority: Secondary Status: Chronic Qualifiers: COPD type: emphysema Emphysema type: unspecified Qualified Code(s): J43.9 - Emphysema, unspecified (4) Microhematuria Priority: Secondary Status: Acute (5) DVT prophylaxis Priority: Secondary Status: Acute (6) Hyperchloremia Priority: Secondary Status: Resolved Hospital course: Mr. Hanks is a 47 year old male with a past medical history of acute recurrent pancreatitis since January of last year presented to emergency department with complaint of abdominal pain for the past 2 days. He states that it has been gradually worsening and describes as a sharp pain with intermittent illness which radiates to the back. He did admit to associated nausea with 1 episode of vomiting. He states it feels like when he had pancreatitis in the past. He denies any history of chronic alcohol abuse, recent travel, insect bites. He has had a cholecystectomy in the past. He does follow with Dr. Garrett who recently referred him to a pancreatic specialist at [facility], however he was unable to make his appointment later in the week due to worsening of symptoms. In the emergency department, Vital signs were unremarkable. Lab results were within normal limits as well. CT scan emergency department did show no evidence of acute pancreatitis or other intra- abdominal or intrapelvic abnormality. He was admitted to medicine service for further evaluation and management of his chronic abdominal pain. During course of hospital stay, patient did gradually improve. He was placed on an nothing by mouth diet and was given symptomatic treatment with pain medications and IV fluid hydration. He was given Zofran and Phenergan for his nausea. He did admit to smoking marijuana as well as drinking excessive amounts of red bull which have both been associated with pancreatitis flares. He was instructed to quit both of these habits. During day of discharge, patient remained hemodynamically stable and labs were again within normal limits. He was able to tolerate a soft diet with minimal pain. Patient did desire to go home at this time and follow-up with his pancreatic specialist with an appointment next week. He will be discharged home with symptomatic control including pain medications, pancreatic enzyme replacement and instructed to follow-up with both his PCP and specialist. All questions were answered and he is medical stable for discharge Discharge discussed with: patient - Time Spent with Patient Total time spent providing and/or coordinating discharge services: - Discharge Medications Prescriptions: Oxycodone HCl [Oxaydo] 7.5 mg PO Q6HR PRN 4 Days #20 tab PRN Reason: Severe Pain Albuterol Neb [Proventil Neb] 2.5 mg IH Q2H PRN #20 vial.neb PRN Reason: Wheezing Nicotine Patch [Nicoderm] 14 mg TD DAILY #14 patch.[email or web address] Home Medications: Albuterol Sulfate [Albuterol Inhaler] 2 puff IH Q6H PRN 08/01/17 [History] Lansoprazole [Prevacid] 30 mg PO DAILY 08/01/17 [History] SUMAtriptan succinate [Sumatriptan Succinate] 6 mg SQ AD PRN 08/01/17 [History] Beclomethasone Diprop 80mcg [QVAR 80 mcg] 1 puff IH BID 12/08/17 [History] Creon Dr 3 - 4 cap PO AD 12/08/17 [History] Fluticasone Propionate [Flovent Hfa] 10.61 puff IH BID 12/08/17 [History] Promethazine [Phenergan] 25 mg PO Q8HR PRN 12/08/17 [History] Albuterol Neb [Proventil Neb] 2.5 mg IH Q2H PRN #20 vial.neb 12/14/17 [Rx] Nicotine Patch [Nicoderm] 14 mg TD DAILY #14 patch.[email or web address] 12/14/17 [Rx] Oxycodone HCl [Oxaydo] 7.5 mg PO Q6HR PRN 4 Days #20 tab 12/14/17 [Rx] Allergies/Adverse Reactions: 3 Allergy/AdvReac Type Severity Reaction Status Date / Time codeine Allergy Swelling Verified 11/17/17 19:55 of Lip/Tongue/Throat meperidine [From Demerol] Allergy Swelling Verified 11/17/17 19:55 of Lip/Tongue/Throat morphine Allergy Swelling Verified 11/17/17 19:55 of Lip/Tongue/Throat Penicillins [PCN] Allergy Swelling Verified 11/17/17 19:55 of Lip/Tongue/Throat acetaminophen [From Vicodin] AdvReac Itching Verified 12/08/17 19:12 hydrocodone [From Vicodin] AdvReac Itching Verified 12/08/17 19:12 ketorolac [From Toradol] AdvReac Swelling Verified 11/17/17 19:55 of Lip/Tongue/Throat Date of admission: 12/09/17 17:27 Primary care physician: Vanessa Ramirez CNP Consults: 12/13/17 11:16 Consult to Nutrition [CONS] Routine Comment: Pancreatic enzyme replacement Consulting Provider: NUTRITION Reason for Dietary Consult: PO Supplementation Discharging clinician: Sung Schultz Anticipated date of discharge: 12/14/17 - Constitutional Vitals: Temp Pulse Resp BP Pulse Ox 98.3 F 91 14 119/66 96 12/14/17 10:35 12/14/17 10:35 12/14/17 11:08 12/14/17 10:35 12/14/17 11:08 General appearance: Present: A&O X 3, pleasant, no acute distress, obese, answers questions appropriately Exam: Gen.: Vitals noted. No acute distress. AAOx3. resting comfortably in bed. HEENT: PERRL/EOMI, oropharynx clear, Normocephalic, atraumatic, MMM Cardiac: RRR, no murmur, +S1/S2 Pulmonary: CTA bilaterally, no wheezes, rales or rhonchi, equal chest expansion Abdomen: soft, tender to palpation diffusely, mildly improved from previous. , BS noted, no guarding, no rebound. Extremities: no BLE edema, nontender calf, no cyanosis or clubbing Neuro: A&Ox3, moves all extremities, no focal deficits Psych: Appropriate mood and behavior - Patient Status Disposition: Home, Self-Care Condition: Good Functional capacity at discharge: independent ambulation Overall status at discharge: patient is progressing back to baseline - Discharge Instructions Follow Up With: Vanessa Ramirez CNP [Primary Care Provider] - 12/19/17 11:00 am Additional Instructions: Please follow up with your primary care physician within one week of discharge. Please take all medications as prescribed. It is very important that you follow up with your pancreas specialist at [facility] appointment next . Take your diet slow and advance as tolerated. - Diet and Activity Activity: increase activity as tolerated, return to work once cleared by your PCP/specialist, resume usual activities as tolerated Diet: advance to your usual diet <Marlo Oshea - Last Filed: 12/14/17 16:35> Date of Encounter: 12/14/17 - Discharge Diagnosis (1) Tobacco abuse Status: Chronic (2) COPD (chronic obstructive pulmonary disease) Status: Chronic Qualifiers: COPD type: emphysema Emphysema type: unspecified Qualified Code(s): J43.9 - Emphysema, unspecified (3) DVT prophylaxis Status: Acute (4) Acute pancreatitis Status: Acute Qualifiers: Pancreatitis type: unspecified pancreatitis type Acute pancreatitis complication: unspecified Qualified Code(s): K85.90 - Acute pancreatitis without necrosis or infection, unspecified (5) Microhematuria Status: Acute (6) Hyperchloremia Status: Resolved Hospital course: Mr. Hanks is a 47 year old male - Time Spent with Patient Total time spent providing and/or coordinating discharge services: Date of admission: 12/09/17 17:27 Primary care physician: Vanessa Ramirez CNP Consults: 12/13/17 11:16 Consult to Nutrition [CONS] Routine Comment: Pancreatic enzyme replacement Consulting Provider: NUTRITION Reason for Dietary Consult: PO Supplementation - Constitutional Vitals: Temp Pulse Resp BP Pulse Ox 98.3 F 91 14 119/66 96 12/14/17 10:35 12/14/17 10:35 12/14/17 11:08 12/14/17 10:35 12/14/17 11:08 - Attending Attestation I examined this patient and my medical decision-making was reviewed with the Resident Physician Dr. Schultz. I agree with the documented findings, disposition and treatment plan as described except to the extent set forth below. Pt states his abdominal pain is better today. Able to tolerate soft diet ok. Reviewed CT of abd - no acute intra abdominal process noticed a/p 1. Acute on chronic pancreatitis Improved recommend to f/u with PCP and his Pancreatic specialist as soon as possible also recommend to conitnue taking Creon
--- NOTE | 2017-12-16 08:39 | Electrocardiograph Report ---
[place] [id number] Test Date: 2017-12-09 Pat Name: Roshan Hanks Department: 115 Room: 3A Gender: M Store Operations Manager: : 1970 Requested By: Paolo Morrison Order Number: [id number] Reading MD: Clifford Bone Measurements Intervals [place] Rate: 63 P: 70 SD: 173 QRS: 72 QRSD: 150 T: 46 QT: 425 QTc: 432 Interpretive Statements SINUS RHYTHM RIGHT BUNDLE BRANCH BLOCK Electronically Signed On 12-16-2017 8:37:56 EDT by Clifford Bone
--- NOTE | 2017-12-16 08:40 | Electrocardiograph Report ---
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
== END 2017-12-14 13:59 | disposition home or self-care (01) | DRG 282 ==
LOC: EMEROO 18:25 → 3ANU 18:25
PROVIDERS: ADMIT Pediatrics; ATTEND Internal Medicine

== ENCOUNTER 2020-03-02 21:35 | Inpatient (IN) ==
[2020-03-02 22:02] LABS: Amorphous Sediment,Urine Few per hpf (None-Few); Bacteria,Urine Few per hpf (None-Few); Bilirubin,Urine Negative (Negative); Blood,Urine Negative (Negative); Clarity,Urine Turbid (Clear); Color,Urine Light-Yellow (Yellow); Glucose,Urine (UA) Normal (Normal); Ketones,Urine Negative (Negative); Leukocyte Esterase,Urine Trace (Negative); Mucus,Urine Few per lpf (None-Few); Nitrite,Urine Negative (Negative); PH,Urine 6.5 pH Units (5.0-8.0); Protein,Urine Trace mg/dL (Neg-Trace); RBC,Urine 0-3 per hpf (0-3); Specific Gravity,Urine 1.025 (1.010-1.025); Squamous Epithelial Cell,Urine Few per hpf (None-Few); Urobilinogen,Urine Normal (Normal)
[2020-03-02 22:39] LABS: Basophils # 0.1 K/mcL (0.0-0.2); Basophils % 0.6 %; Eosinophils # 0.3 K/mcL (0.0-0.6); Hematocrit 42.8 % (37.5-50.1); Immature Granulocytes % 0.2 % (0-4); Lymphocytes # 2.4 K/mcL (0.6-4.6); Mean Corpuscular HGB Conc 32.7 g/dL (31.6-35.5); Mean Corpuscular Hemoglobin 31.5 pg (28.0-33.3); Mean Corpuscular Volume 96.2 fL (83.0-100.0); Mean Platelet Volume 10.6 fL (9.4-12.4); Monocytes # 1.1 K/mcL (0.0-1.3); Monocytes % 10.6 %; Neutrophils # 6.1 K/mcL (1.6-8.9); Platelet Count 197 K/mcL (140-400); Red Blood Count 4.45 M/mcL (4.19-5.50); Red Cell Distribution Width 13.9 % (11.5-14.5); Segmented Neutrophils % 61.6 %; White Blood Count 9.9 K/mcL (4.3-11.1)
[2020-03-02 22:57] LABS: Alanine Aminotransferase 16 Units/L (7-52); Albumin 3.9 g/dL (3.5-5.7); Albumin/Globulin Ratio 1.4 (1.1-2.2); Alkaline Phosphatase 99 Units/L (34-104); Aspartate Amino Transferase 17 Units/L (13-39); BUN/Creatinine Ratio 22 (6-26); Bilirubin,Direct 0.1 mg/dL (0.0-0.2); Bilirubin,Indirect 0.2 mg/dL (0.0-1.0); Bilirubin,Total 0.3 mg/dL (0.3-1.0); Blood Urea Nitrogen 23 mg/dL (6-20); Carbon Dioxide 28 mEq/L (23-29); Chloride 106 mEq/L (98-107); Globulin 2.8 g/dL (2.4-3.5); Glucose 104 mg/dL (70-105); Lipase 484 Units/L (11-82); Osmolality,Calculated 296 (280-300); Potassium 3.9 mEq/L (3.5-5.1); Sodium 141 mEq/L (136-145); Total Protein 6.7 g/dL (6.4-8.9); eGFR For African Americans > 60 (> 60); eGFR For Non-African Americans > 60 (> 60)
[2020-03-02] MEDS ORDERED: *HR* HYDROmorphone (PF) 1 MG/ML SYRINGE IVP ONE (23:21)
[2020-03-02] MEDS ORDERED: *HR* Promethazine 25 MG/ML VIAL IVP ONE (23:52)
[2020-03-03] MEDS ORDERED: Ringers Solution, Lactated 1,000 ML IV SCH (00:30)
[2020-03-03] MEDS ORDERED: Isovue-370 500 ML BOTTLE IVP ONE (00:30)
[2020-03-03] MEDS ORDERED: Naloxone 0.4 MG/ML INJ IVP PRN (00:33)
[2020-03-03] MEDS: Ringers Solution, Lactated 1,000 ML IV SCH ×4 (04:47→18:17)
[2020-03-03 05:03] LABS: Basophils # 0.1 K/mcL (0.0-0.2); Basophils % 0.6 %; Eosinophils # 0.3 K/mcL (0.0-0.6); Eosinophils % 3.3 %; Hematocrit 43.6 % (37.5-50.1); Hemoglobin 14.1 g/dL (12.9-16.9); Immature Granulocytes % 0.2 % (0-4); Lymphocytes # 2.6 K/mcL (0.6-4.6); Lymphocytes % 29.7 %; Mean Corpuscular HGB Conc 32.3 g/dL (31.6-35.5); Mean Corpuscular Hemoglobin 30.9 pg (28.0-33.3); Mean Corpuscular Volume 95.4 fL (83.0-100.0); Mean Platelet Volume 10.3 fL (9.4-12.4); Monocytes # 0.9 K/mcL (0.0-1.3); Monocytes % 10.8 %; Neutrophils # 4.8 K/mcL (1.6-8.9); Platelet Count 181 K/mcL (140-400); Red Blood Count 4.57 M/mcL (4.19-5.50); Red Cell Distribution Width 13.9 % (11.5-14.5); Segmented Neutrophils % 55.4 %; White Blood Count 8.6 K/mcL (4.3-11.1)
[2020-03-03 05:18] LABS: Alanine Aminotransferase 14 Units/L (7-52); Albumin 3.5 g/dL (3.5-5.7); Albumin/Globulin Ratio 1.5 (1.1-2.2); Alkaline Phosphatase 87 Units/L (34-104); Aspartate Amino Transferase 13 Units/L (13-39); BUN/Creatinine Ratio 27 (6-26); Bilirubin,Total 0.3 mg/dL (0.3-1.0); Blood Urea Nitrogen 22 mg/dL (6-20); Calcium 8.7 mg/dL (8.6-10.3); Carbon Dioxide 27 mEq/L (23-29); Chloride 107 mEq/L (98-107); Globulin 2.4 g/dL (2.4-3.5); Glucose 98 mg/dL (70-105); Osmolality,Calculated 291 (280-300); Sodium 139 mEq/L (136-145); Total Protein 5.9 g/dL (6.4-8.9); eGFR For African Americans > 60 (> 60); eGFR For Non-African Americans > 60 (> 60)
[2020-03-03] MEDS: Ipratropium/Albuterol Neb 3 ML IH SCH ×4 (06:27→21:08)
[2020-03-03] MEDS ORDERED: NON-FORMULARY MEDICATION 1 EACH EACH (Fluticasone Propionate [Flovent Hfa] 1 PUFF) IH SCH (09:00)
[2020-03-03] MEDS: *HR* HYDROmorphone (PF) 1 MG/ML SYRINGE IVP PRN ×3 (09:40→23:02)
[2020-03-03] MEDS: *HR* Promethazine 25 MG/ML VIAL IVP PRN ×2 (09:43→16:16)
[2020-03-03] MEDS ORDERED: Furosemide 40 MG TABLET PO PRN (17:34)
[2020-03-03] MEDS ORDERED: SUMAtriptan succinate 50 MG TABLET PO PRN (17:34)
[2020-03-03] MEDS: Gabapentin 400 MG CAPSULE PO SCH (21:19)
[2020-03-04] MEDS: Ringers Solution, Lactated 1,000 ML IV SCH ×4 (00:16→09:25)
[2020-03-04 02:38] LABS: Basophils # 0.1 K/mcL (0.0-0.2); Basophils % 0.6 %; Eosinophils # 0.2 K/mcL (0.0-0.6); Eosinophils % 2.5 %; Hematocrit 42.9 % (37.5-50.1); Hemoglobin 14.2 g/dL (12.9-16.9); Immature Granulocytes % 0.5 % (0-4); Lymphocytes % 23.9 %; Mean Corpuscular HGB Conc 33.1 g/dL (31.6-35.5); Mean Corpuscular Hemoglobin 30.9 pg (28.0-33.3); Mean Corpuscular Volume 93.5 fL (83.0-100.0); Mean Platelet Volume 11.3 fL (9.4-12.4); Monocytes # 0.9 K/mcL (0.0-1.3); Monocytes % 10.9 %; Neutrophils # 5.3 K/mcL (1.6-8.9); Platelet Count 183 K/mcL (140-400); Red Blood Count 4.59 M/mcL (4.19-5.50); Red Cell Distribution Width 13.6 % (11.5-14.5); Segmented Neutrophils % 61.6 %; White Blood Count 8.5 K/mcL (4.3-11.1)
[2020-03-04 02:52] LABS: Alanine Aminotransferase 14 Units/L (7-52); Albumin 3.3 g/dL (3.5-5.7); Albumin/Globulin Ratio 1.4 (1.1-2.2); Alkaline Phosphatase 81 Units/L (34-104); Aspartate Amino Transferase 14 Units/L (13-39); BUN/Creatinine Ratio 17 (6-26); Bilirubin,Total 0.7 mg/dL (0.3-1.0); Blood Urea Nitrogen 12 mg/dL (6-20); Calcium 8.2 mg/dL (8.6-10.3); Carbon Dioxide 25 mEq/L (23-29); Chloride 108 mEq/L (98-107); Globulin 2.3 g/dL (2.4-3.5); Glucose 77 mg/dL (70-105); Lipase 126 Units/L (11-82); Osmolality,Calculated 289 (280-300); Potassium 3.8 mEq/L (3.5-5.1); Sodium 140 mEq/L (136-145); Total Protein 5.6 g/dL (6.4-8.9); eGFR For African Americans > 60 (> 60); eGFR For Non-African Americans > 60 (> 60)
[2020-03-04] MEDS: *HR* Promethazine 25 MG/ML VIAL IVP PRN ×3 (03:00→19:51)
[2020-03-04] MEDS: Ipratropium/Albuterol Neb 3 ML IH SCH ×4 (03:50→22:42)
[2020-03-04] MEDS: *HR* HYDROmorphone (PF) 1 MG/ML SYRINGE IVP PRN ×2 (06:38→12:36)
[2020-03-04] MEDS: Gabapentin 400 MG CAPSULE PO SCH ×3 (08:48→19:50)
[2020-03-04] MEDS: polyethylene glycoL 3350 17 GM POWD.PACK PO SCH (08:48)
[2020-03-04] MEDS ORDERED: *HR* HYDROmorphone (PF) 1 MG/ML SYRINGE IVP ONE (23:31)
[2020-03-05] MEDS: Ipratropium/Albuterol Neb 3 ML IH SCH ×4 (03:54→22:05)
[2020-03-05 06:40] LABS: BUN/Creatinine Ratio 15 (6-26); Blood Urea Nitrogen 13 mg/dL (6-20); Calcium 9.3 mg/dL (8.6-10.3); Carbon Dioxide 25 mEq/L (23-29); Chloride 107 mEq/L (98-107); Glucose 97 mg/dL (70-105); Lipase 90 Units/L (11-82); Osmolality,Calculated 288 (280-300); Potassium 4.7 mEq/L (3.5-5.1); Sodium 139 mEq/L (136-145); eGFR For African Americans > 60 (> 60); eGFR For Non-African Americans > 60 (> 60)
[2020-03-05] MEDS: polyethylene glycoL 3350 17 GM POWD.PACK PO SCH (08:41)
[2020-03-05] MEDS: Gabapentin 400 MG CAPSULE PO SCH ×3 (08:41→20:53)
[2020-03-05] MEDS: Bisacodyl 10 MG RECTAL SUPPOSITORY RC SCH (09:22)
[2020-03-05] MEDS: *HR* Promethazine 25 MG/ML VIAL IVP PRN ×2 (09:22→15:36)
[2020-03-05] MEDS: Ringers Solution, Lactated 1,000 ML IVC SCH ×2 (09:22→17:35)
[2020-03-05] MEDS: *HR* HYDROmorphone (PF) 1 MG/ML SYRINGE IVP PRN (18:26)
[2020-03-06] MEDS: Ringers Solution, Lactated 1,000 ML IVC SCH ×2 (01:22→08:13)
[2020-03-06] MEDS: *HR* Promethazine 25 MG/ML VIAL IVP PRN (01:22)
[2020-03-06] MEDS: *HR* HYDROmorphone (PF) 1 MG/ML SYRINGE IVP PRN (01:23)
[2020-03-06] MEDS: Ipratropium/Albuterol Neb 3 ML IH SCH ×4 (04:11→22:03)
[2020-03-06 06:36] LABS: Basophils # 0.1 K/mcL (0.0-0.2); Basophils % 0.7 %; Eosinophils # 0.3 K/mcL (0.0-0.6); Eosinophils % 3.2 %; Hematocrit 49.7 % (37.5-50.1); Hemoglobin 16.4 g/dL (12.9-16.9); Immature Granulocytes % 0.4 % (0-4); Lymphocytes # 2.2 K/mcL (0.6-4.6); Lymphocytes % 24.7 %; Mean Corpuscular Hemoglobin 31.9 pg (28.0-33.3); Mean Corpuscular Volume 96.7 fL (83.0-100.0); Mean Platelet Volume 11.1 fL (9.4-12.4); Monocytes # 0.9 K/mcL (0.0-1.3); Monocytes % 10.2 %; Neutrophils # 5.5 K/mcL (1.6-8.9); Platelet Count 160 K/mcL (140-400); Red Blood Count 5.14 M/mcL (4.19-5.50); Red Cell Distribution Width 13.4 % (11.5-14.5); Segmented Neutrophils % 60.8 %; White Blood Count 9.1 K/mcL (4.3-11.1)
[2020-03-06 06:56] LABS: BUN/Creatinine Ratio 15 (6-26); Blood Urea Nitrogen 12 mg/dL (6-20); Calcium 9.2 mg/dL (8.6-10.3); Carbon Dioxide 27 mEq/L (23-29); Chloride 107 mEq/L (98-107); Glucose 93 mg/dL (70-105); Magnesium 1.9 mg/dL (1.6-2.6); Osmolality,Calculated 283 (280-300); Potassium 4.2 mEq/L (3.5-5.1); Sodium 137 mEq/L (136-145); eGFR For African Americans > 60 (> 60); eGFR For Non-African Americans > 60 (> 60)
[2020-03-06] MEDS: Gabapentin 400 MG CAPSULE PO SCH ×3 (08:13→20:19)
[2020-03-06] MEDS: Bisacodyl 10 MG RECTAL SUPPOSITORY RC SCH (08:14)
[2020-03-06] MEDS ORDERED: Ringers Solution, Lactated 1,000 ML IVC SCH (08:30)
[2020-03-06] MEDS: polyethylene glycoL 3350 17 GM POWD.PACK PO SCH (08:54)
[2020-03-06] MEDS ORDERED: Bisacodyl 10 MG RECTAL SUPPOSITORY RC PRN (10:40)
[2020-03-06] MEDS ORDERED: methocarbamoL 500 MG TABLET PO PRN (23:12)
[2020-03-06] MEDS ORDERED: Ketorolac 15 MG/ML VIAL IVP PRN (23:13)
[2020-03-07] MEDS: Ipratropium/Albuterol Neb 3 ML IH SCH (03:56)
[2020-03-07 07:02] VITALS: BP 149/86
[2020-03-07] MEDS: Gabapentin 400 MG CAPSULE PO SCH (08:54)
[2020-03-07] MEDS: polyethylene glycoL 3350 17 GM POWD.PACK PO SCH (08:54)
== END 2020-03-07 10:09 | disposition home or self-care (01) | DRG 282 ==
LOC: EMEROOARM 21:35 → 3ANU 21:35 → SUATTDRO 03-03 00:57 → 3ANU 03-03 01:31 → SUATTDRO 03-04 11:49
PROVIDERS: ADMIT Internal Medicine; ATTEND Internal Medicine

== ENCOUNTER 2020-03-19 20:23 | Observation (INO) ==
[2020-03-19] MEDS ORDERED: 0.9 % Sodium Chloride 1,000 ML IVC ONE (20:55)
[2020-03-19] MEDS ORDERED: *HR* Promethazine 25 MG/ML VIAL IVP ONE (21:40)
[2020-03-19] MEDS ORDERED: *HR* HYDROmorphone (PF) 1 MG/ML SYRINGE IVP ONE (21:40)
[2020-03-19] MEDS ORDERED: Naloxone 0.4 MG/ML INJ IVP PRN (23:18)
[2020-03-19] MEDS ORDERED: Ondansetron 4 MG/2 ML VIAL IVP PRN (23:18)
[2020-03-20] MEDS: *HR* HYDROmorphone (PF) 1 MG/ML SYRINGE IVP PRN ×3 (00:13→08:42)
[2020-03-20] MEDS: 0.9 % Sodium Chloride 1,000 ML IVC SCH ×2 (00:14→10:05)
[2020-03-20] MEDS ORDERED: *HR* Enoxaparin 100 MG/ML SYRINGE SQ SCH (00:15)
[2020-03-20] MEDS: Vancomycin 1,500 MG/265 ML IV.SOLN IVPB SCH ×2 (01:16→12:37)
[2020-03-20] MEDS: *HR* Promethazine 25 MG/ML VIAL IVP PRN ×2 (04:10→17:04)
[2020-03-20 05:17] LABS: Hematocrit 44.7 % (37.5-50.1); Hemoglobin 14.3 g/dL (12.9-16.9); Mean Corpuscular Hemoglobin 31.8 pg (28.0-33.3); Mean Corpuscular Volume 99.6 fL (83.0-100.0); Mean Platelet Volume 10.4 fL (9.4-12.4); Platelet Count 155 K/mcL (140-400); Red Blood Count 4.49 M/mcL (4.19-5.50); Red Cell Distribution Width 13.5 % (11.5-14.5); White Blood Count 6.1 K/mcL (4.3-11.1)
[2020-03-20 05:39] LABS: BUN/Creatinine Ratio 15 (6-26); Blood Urea Nitrogen 12 mg/dL (6-20); Carbon Dioxide 23 mEq/L (23-29); Chloride 109 mEq/L (98-107); Chol/HDL Ratio 3.8 (0-4.9); Cholesterol 144 mg/dL (< 200); Glucose 95 mg/dL (70-105); HDL Cholesterol 38 mg/dL (40-59); LDL Cholesterol,Calculated 87 mg/dL (< 100); Magnesium 1.9 mg/dL (1.6-2.6); Osmolality,Calculated 288 (280-300); Phosphorous 4.4 mg/dL (2.7-4.5); Potassium 4.1 mEq/L (3.5-5.1); Sodium 139 mEq/L (136-145); Triglycerides 93 mg/dL (< 150); eGFR For African Americans > 60 (> 60); eGFR For Non-African Americans > 60 (> 60)
[2020-03-20] MEDS ORDERED: polyethylene glycoL 3350 17 GM POWD.PACK PO SCH (11:15)
[2020-03-20 18:43] VITALS: BP 109/63
[2020-03-20] MEDS ORDERED: Sennosides/Docusate Sodium TABLET PO SCH (21:00)
== END 2020-03-20 20:25 | disposition left against medical advice (07) ==
LOC: EMEROOARM 20:23 → 3BNU 20:23 → SUATTDRO 22:37 → 3BNU 22:50
PROVIDERS: ADMIT Internal Medicine; ATTEND Internal Medicine